=== PATIENT | female | born 1940 | race Caucasian/White ===

== ENCOUNTER → 2018-04-07 | Outpatient (CLI) | payer MEDICARE ==
--- NOTE | 2018-04-07 09:54 | CT ---
EXAMINATION TYPE: CT abdomen pelvis wo con DATE OF EXAM: 04/07/2018 COMPARISON: None HISTORY: Abdominal mass, frequent urination CT DLP: 737 mGycm Automated exposure control for dose reduction was used. TECHNIQUE: Helical acquisition of images from the lung bases through the pelvis. FINDINGS: Small posterior diaphragmatic hernias containing fat. There is a hiatal hernia. Lack of con trast could compromise sensitivity. LUNG BASES: No significant abnormality is appreciated. AORTA: No atheromatous changes are present. LIVER/GB: No significant abnormality is appreciated. PANCREAS: No significant abnormality is seen. SPLEEN: No significant abnormality is seen. ADRENALS: No significant abnormality is seen. KIDNEYS: No significant abnormality is seen. REPRODUCTIVE ORGANS: Not seen. URINARY BLADDER: No significant abnormality is seen. BOWEL: Colonic interposition present anterior to the liver. Colon is redundant, cecum courses toward s the midline, correlate for possible cecal bascule. Diverticular changes associated with the sigmoid colon FREE AIR: No Free Air is visible. ASCITES: None visible. PELVIC ADENOPATHY: None visualized. RETROPERITONEAL ADENOPATHY: No Retroperitoneal Adenopathy visible. OSSEOUS STRUCTURES: Posterior thoracic lumbar sacral fusion is noted, multiple transpedicular screws coursing anterior to the cortices of the fused vertebral bodies, in close proximity to the aortoilia c vasculature. There is a spinal curvature. Laminectomy present at L5, artifact from patient's hardwa re could obscure detail IMPRESSION: DIVERTICULOSIS, REDUNDANT CECUM DESCRIBED, CONSIDER CECAL BASCULE. NONCONTRAST EXAM, POSTOP CHANGE S AND ADDITIONAL FINDINGS ABOVE.
== END | disposition home or self-care (01) ==
LOC: RADCTMAIN 06:36
PROVIDERS: ATTEND Surgery Plastic and Reconstructive Surgery
DX: K57.90 Diverticulosis of intestine, part unspecified, without perforation or abscess without bleeding (principal); K63.89 Other specified diseases of intestine
CPT/HCPCS: 74176

== ENCOUNTER → 2018-06-29 | Day surgery (SDC) | payer MEDICARE ==
[2018-06-26 14:44] VITALS: BMI 25.7
[~2018-06-29] MED LIST: LACTATED RINGERS 1,000 ML IV SCH; LIDOCAINE 1% 20 ML VIAL (10MG/ML) FOR IV START INTRADERMA ONE; LIDOCAINE 1% 20 ML VIAL (10MG/ML) FOR IV START INTRADERMA PRN; LIDOCAINE 1% INJ 10MG/ML (20 ML MDV) ONE; PROPOFOL 10 MG/ML 20 ML VIAL IV ONE
--- NOTE | 2018-06-29 08:00 | P.GSHP ---
History of Present Illness H&P Date: 06/29/18 CHIEF COMPLAINT: GERD and colon screen HISTORY OF PRESENT ILLNESS: The patient is a 77-year-old female who presents with gastroesophageal reflux disease and need for colon screen. Upper and lower endoscopy were offered for further evaluation and management. PAST MEDICAL HISTORY: Please see list. PAST SURGICAL HISTORY: Please see list. MEDICATIONS: Please see list. ALLERGIES: Please see list. SOCIAL HISTORY: No illicit drug use FAMILY HISTORY: No reports of Crohn disease or ulcerative colitis. REVIEW OF ORGAN SYSTEMS: CONSTITUTIONAL: No reports of fevers or chills. GI: Denies any blood in stools or constipation. PHYSICAL EXAM: VITAL SIGNS: Stable GENERAL: Well-developed pleasant in no acute distress. HEENT: No scleral icterus. Extraocular movements grossly intact. Moist buccal mucosa. NECK: Supple without lymphadenopathy. CHEST: Unlabored respirations. Equal bilateral excursions. CARDIOVASCULAR: Regular rate and rhythm. Distal 2+ pulses. ABDOMEN: Soft, nondistended. MUSCULOSKELETAL: No clubbing, cyanosis, or edema. ASSESSMENT: 1. Gastroesophageal reflux disease 2. Colon screen. PLAN: 1. Recommend proceeding with an upper and lower endoscopy Past Medical History Past Medical History: Fibromyalgia, GERD/Reflux, Osteoarthritis (OA) Additional Past Medical History / Comment(s): low blood pressure, rectal bleeding, diarrhea/constipation, some urinary incontinence, MS dx in s, fx left foot 04/29/18- cast off recently History of Any Multi-Drug Resistant Organisms: None Reported Past Surgical History: Adenoidectomy, Back Surgery, Hysterectomy, Tonsillectomy Additional Past Surgical History / Comment(s): rods in back, Past Anesthesia/Blood Transfusion Reactions: Family History of Problems w/ Anesthesia Additional Past Anesthesia/Blood Transfusion Reaction / Comment(s): pt states can not lay flat due to rods in spine, daughter PONV, Smoking Status: Former smoker - Past Family History Mother Family Medical History: No Reported History Medications and Allergies Home Medications Medication Instructions Recorded Confirmed Type Aspirin [Adult Low Dose Aspirin EC] 81 mg PO DAILY 06/26/18 06/26/18 History Cyanocobalamin [Vitamin B-12] 500 mcg PO DAILY 06/26/18 06/26/18 History Escitalopram [Lexapro] 20 mg PO DAILY 06/26/18 06/26/18 History Ibuprofen [Advil] 200 mg PO DAILY 06/26/18 06/26/18 History Liver Antiox 1 tab PO DAILY 06/26/18 06/26/18 History [place] 3 1 tab PO DAILY 06/26/18 06/26/18 History Omeprazole 40 mg PO QAM 06/26/18 06/26/18 History Ubidecarenone [Co Q-10] 200 mg PO DAILY 06/26/18 06/26/18 History Vitamin K-2 1 tab PO DAILY 06/26/18 06/26/18 History Allergies Allergy/AdvReac Type Severity Reaction Status Date / Time No Known Allergies Allergy Verified 06/26/18 14:32
[2018-06-29 08:31] VITALS: RESP 16; TEMP 97.1
--- NOTE | 2018-06-29 09:25 | P.PCN ---
Date of Procedure: 06/29/18 Description of Procedure: PREOPERATIVE DIAGNOSIS: Colonoscopy screening. POSTOPERATIVE DIAGNOSIS: Colonoscopy screening. Severe sigmoid diverticulosis Colonic volvulus OPERATION: Colonoscopy aborted to sigmoidoscopy of the sigmoid colon. SURGEON: Edith Garcia MD. ANESTHESIA: MAC. INDICATIONS: The patient is a 77-year-old female who presents for colonoscopy screening. Her last colonoscopy was more than 10 years ago. Benefits and risks were described and informed consent was obtained. DESCRIPTION OF PROCEDURE: The patient had undergone Gatorade, MiraLAX and Dulcolax prep. She had been brought into the operating room and laid in the left lateral decubitus position. After adequate intravenous sedation, the rectum was examined with 2% lidocaine jelly. No external hemorrhoids were encountered. The rectal tone was loose. No lesions were palpated in the rectal vault. An Olympus colonoscope was advanced along the rectum to a very tortuous sigmoid colon. Despite multiple maneuvers, the sigmoid colon had severe tortuosity preventing further advancement of scope with high suspicion for colonic torsion/volvulus. The scope was passed to 30 cm from the anal verge. No evidence of polyps were identified. As the patient posed high risk for perforation with persistence of the procedure, the procedure was discontinued. The colon was desufflated. The patient had tolerated the procedure well. Withdrawal time was over 6 minutes. FINDINGS: Tortuous sigmoid colon with high suspicion of volvulus with preventing further advancement of the scope. No external prolapsed hemorrhoids. Scope advanced to sigmoid colon at 30 cm. No arteriovenous malformations. No adenomatous polyps. No focal colitis. RECOMMENDATIONS: Immediate evaluation with barium enema advised
--- NOTE | 2018-06-29 09:27 | P.PCN ---
Date of Procedure: 06/29/18 Description of Procedure: PREOPERATIVE DIAGNOSIS: Gastroesophageal reflux disease. POSTOPERATIVE DIAGNOSIS: Gastroesophageal reflux disease. Mild chronic gastritis Diaphragmatic hiatal hernia, paraesophageal type III OPERATION: Esophagogastroduodenoscopy with biopsies along antrum. SURGEON: Edith Garcia MD ANESTHESIA: MAC. INDICATIONS: The patient is a 77-year-old female who presents with a history of reflux disease. Benefits and risks of the procedure were described. Informed consent was obtained. DESCRIPTION: The patient was brought into the endoscopy suite and laid in the left lateral decubitus position. An Olympus gastroscope was passed along the posterior oropharynx down to the distal esophagus where the squamocolumnar junction was encountered at 32 cm from the incisors. The stomach was entered and no bile reflux was found. Additional findings are listed below. Biopsies with cold forceps were obtained of the antrum. The first through third portion of the duodenum was examined and unremarkable. Retroflexion of the scope confirmed Hill grade 4 lower esophageal valve. The squamocolumnar junction demonstrated LA grade A erosive esophagitis. The stomach was desufflated. The patient tolerated the procedure well. FINDINGS: Squamocolumnar junction 32 cm from the incisors. Diaphragmatic hiatus at 40 cm. Hiatal hernia, 8 cm, fixed paraesophageal type III Hill grade 4 lower esophageal valve. LA grade A erosive esophagitis. No active duodenitis. Chronic gastritis RECOMMENDATIONS: 1. Upper endoscopy as needed. 2. Recommend repair of large paraesophageal hiatal hernia Plan - Discharge Summary Discharge Rx Participant: No New Discharge Prescriptions: No Action Cyanocobalamin [Vitamin B-12] 500 mcg PO DAILY Aspirin [Adult Low Dose Aspirin EC] 81 mg PO DAILY Omeprazole 40 mg PO QAM Escitalopram [Lexapro] 20 mg PO DAILY Vitamin K-2 1 tab PO DAILY Liver Antiox 1 tab PO DAILY Ibuprofen [Advil] 200 mg PO DAILY Ubidecarenone [Co Q-10] 200 mg PO DAILY [place] 3 1 tab PO DAILY Discharge Medication List Aspirin [Adult Low Dose Aspirin EC] 81 mg PO DAILY 06/26/18 [History] Cyanocobalamin [Vitamin B-12] 500 mcg PO DAILY 06/26/18 [History] Escitalopram [Lexapro] 20 mg PO DAILY 06/26/18 [History] Ibuprofen [Advil] 200 mg PO DAILY 06/26/18 [History] Liver Antiox 1 tab PO DAILY 06/26/18 [History] [place] 3 1 tab PO DAILY 06/26/18 [History] Omeprazole 40 mg PO QAM 06/26/18 [History] Ubidecarenone [Co Q-10] 200 mg PO DAILY 06/26/18 [History] Vitamin K-2 1 tab PO DAILY 06/26/18 [History] Follow up Appointment(s)/Referral(s): Edith Garcia MD [STAFF PHYSICIAN] - 07/11/18 Patient Instructions/Handouts: Hiatal Hernia (DC), Diverticulosis (ED), Diverticulosis Diet (GEN) Discharge Disposition: HOME SELF-CARE
[2018-06-29 10:39] VITALS: BP 127/73; PULSE 69
--- NOTE | 2018-06-29 13:52 | FL ---
EXAMINATION TYPE: FL barium enema DATE OF EXAM: 06/29/2018 COMPARISON: Correlation CT 04/07/2018 HISTORY: 77-year-old female sigmoid volvulus, dark stool for 2 days, diarrhea, bloating. 40 pound david ght gain. Incomplete colonoscopy. TECHNIQUE: A double contrast barium enema study is performed. FINDINGS: Online Content Developer view of the abdomen shows overall non-obstructive bowel gas pattern. There is residual colonic air from patient's incomplete colonoscopy. Extensive thoracolumbar fusion hardware is present. The hadley rdware overlapping the colon causes some limitation in assessment. Additional limitation due to marked redundancy of the sigmoid colon as well as the right side of the colon. As noted on CT, the cecum is high riding, possible cecal bascule. The marked sigmoid redundancy causes excessive overlap limiting assessment. There is moderate to dereje re sigmoid diverticulosis demonstrated. There is a short segment at the junction of the descending and sigmoid colon that shows mild persiste nt annular narrowing initially but seems to adequately distend on the overhead images. No evidence of any mass or polyp, obstructing or persistently constricting lesion throughout the colo n. The appendix is not seen. The terminal ileum is not refluxed. Only faint coating of cecum was achieved due to the extensive redundancy. IMPRESSION: 1. Exam limitations due to overlying spinal hardware and marked redundancy of the right side of the c olon and sigmoid colon. 2. Moderate to severe sigmoid diverticulosis. Some relative mild narrowing at the junction of the jane cending and sigmoid colon could represent a mild stricture such as from chronic diverticulitis. This area does partially distended on the overhead images arguing against an annular mass. 3. No definite suspicious colonic lesion seen.
== END | disposition home or self-care (01) ==
LOC: ORWHC2ENDO 07:56
PROVIDERS: ATTEND Surgery Plastic and Reconstructive Surgery
DX: K21.0 Gastro-esophageal reflux disease with esophagitis (principal); K29.50 Unspecified chronic gastritis without bleeding; K31.9 Disease of stomach and duodenum, unspecified; K44.9 Diaphragmatic hernia without obstruction or gangrene; K56.2 Volvulus; K57.30 Diverticulosis of large intestine without perforation or abscess without bleeding; M19.90 Unspecified osteoarthritis, unspecified site; M79.7 Fibromyalgia; Z12.11 Encounter for screening for malignant neoplasm of colon; Z79.82 Long term (current) use of aspirin; Z87.891 Personal history of nicotine dependence
CPT/HCPCS: 88305; 74270; 43239; 45330; J2001; J2704

== ENCOUNTER → 2018-08-09 | Outpatient (CLI) | payer MEDICARE ==
[2018-08-09 10:16] LABS: HCT 39.8 % (34.0-46.0); HGB 12.5 gm/dL (11.4-16.0); MCH 29.7 pg (25.0-35.0); MCHC 31.5 g/dL (31.0-37.0); MCV 94.1 fL (80.0-100.0); Mean Platelet Volume 8.1; Platelet Count 254 k/uL (150-450); RBC 4.23 m/uL (3.80-5.40); RDW 13.1 % (11.5-15.5)
[2018-08-09 10:27] LABS: Albumin 4.7 g/dL (3.5-5.0); Calcium 9.8 mg/dL (8.4-10.2); Potassium 4.8 mmol/L (3.5-5.1); Total Bilirubin 0.5 mg/dL (0.2-1.3); Total Protein 7.8 g/dL (6.3-8.2)
== END ==
LOC: LABPAT 08:52
PROVIDERS: ATTEND Surgery Plastic and Reconstructive Surgery
DX: Z01.812 Encounter for preprocedural laboratory examination (principal); K57.90 Diverticulosis of intestine, part unspecified, without perforation or abscess without bleeding
CPT/HCPCS: 36415; 80053; 85027

== ENCOUNTER 2018-08-16 07:45 | Inpatient (IN) | payer MEDICARE ==
[2018-09-14 13:17] VITALS: BMI 28.9
--- NOTE | 2018-09-21 14:17 | P.PN ---
Progress Note - Text Progress Note Date: 09/21/18 I personally contacted patient. She reports no problem with her bowel prep. She understands that incomplete bowel prep would require re-schedule of her surgery including increased risks for complications. All questions reviewed and answered
--- NOTE | 2018-09-21 21:42 | P.GSHP ---
History of Present Illness H&P Date: 09/22/18 CHIEF COMPLAINT: History of sigmoid diverticulitis HISTORY OF PRESENT ILLNESS: The patient is a 77-year-old female with long- standing history of chronic constipation including large bowel obstruction secondary to sigmoid volvulus and diverticulitis. She completed an incomplete colonoscopy leading to a barium enema with questionable lesion involving the sigmoid/descending colon junction. Now she presents for colon resection. PAST MEDICAL HISTORY: Please see list. PAST SURGICAL HISTORY: Please see list. MEDICATIONS: Please see list. ALLERGIES: Please see list. SOCIAL HISTORY: No illicit drug use FAMILY HISTORY: No reports of Crohn disease or ulcerative colitis. REVIEW OF ORGAN SYSTEMS: CONSTITUTIONAL: Denies any fever or chills. HEENT: Denies any trouble with vision or nosebleeds. No difficulty swallowing. She is hard of hearing. LYMPHATIC: The patient denies any lumps and bumps around the neck. ENDOCRINE: Has thyroid disorders. No blood sugar glucose intolerance. RESPIRATORY: Denies pneumonia. Denies any troubles with breathing or dyspnea on exertion. CARDIOVASCULAR: Denies any chest pain, palpitations, or recent heart attacks. GASTROINTESTINAL: Has constipation and recent colonoscopy GENITOURINARY: Has increased urinary frequency. MUSCULOSKELETAL: Has back pain, stiffness, joint arthritis. NEUROLOGIC: Denies any numbness or tingling along the distal extremities. No seizure disorders or headaches. PSYCHIATRIC: Denies depression or suidical ideation. HEMATOLOGIC: Denies any abnormal bleeding or bruising. PHYSICAL EXAM: VITAL SIGNS: Stable GENERAL: Well-developed pleasant in no acute distress. HEENT: No scleral icterus. Extraocular movements grossly intact. Moist buccal mucosa. He is hard of hearing. NECK: Supple without lymphadenopathy. CHEST: Unlabored respirations. Equal bilateral excursions. CARDIOVASCULAR: Regular rate and rhythm. Distal 2+ pulses. ABDOMEN: Soft, nontender, nondistended. MUSCULOSKELETAL: No clubbing, cyanosis, or edema. NERUO: Regular 2-12 grossly intact. PSYCH: Alert and oriented to person place and time. ASSESSMENT: 1. History of previous large bowel obstruction. 2. Sigmoid volvulus. 3. Diverticulitis 4. Hypertensive heart disease PLAN: 1. Benefits and risks of surgical intervention for colon resection was reviewed in detail. Robotic-assisted approach was also described. 2. She has completed an enhanced colon recovery program. 3. DVT prophylaxis. 4. Antibiotic prophylaxis. Past Medical History Past Medical History: GERD/Reflux, Neurologic Disorder Additional Past Medical History / Comment(s): diverculosis, MS in remission, recovering from fx left foot-walks slowly History of Any Multi-Drug Resistant Organisms: None Reported Past Surgical History: Adenoidectomy, Appendectomy, Back Surgery, Tonsillectomy Additional Past Surgical History / Comment(s): [employer] breast implants, rods in back can not lay flat, Past Anesthesia/Blood Transfusion Reactions: No Reported Reaction Additional Past Anesthesia/Blood Transfusion Reaction / Comment(s): can not lay flat due to ashwini in back Smoking Status: Former smoker - Past Family History Father Additional Family Medical History / Comment(s): carotid artery disease Mother Family Medical History: Cancer Additional Family Medical History / Comment(s): lung Medications and Allergies Home Medications Medication Instructions Recorded Confirmed Type Cyanocobalamin [Vitamin B-12] 500 mcg PO DAILY 06/26/18 09/14/18 History Liver Antiox 1 tab PO DAILY 06/26/18 09/14/18 History [place] 3 1 tab PO DAILY 06/26/18 09/14/18 History Ubidecarenone [Co Q-10] 200 mg PO DAILY 06/26/18 09/14/18 History Vitamin K-2 1 tab PO DAILY 06/26/18 09/14/18 History Cholestol [place] 1 tab PO DAILY 08/07/18 09/14/18 History Diazepam [Valium] 5 mg PO DAILY PRN 08/07/18 09/14/18 History Omeprazole [PriLOSEC] 40 mg PO QAM 08/07/18 09/14/18 History Vitamin C/Biotin [Hair, Skin and 1 tab PO DAILY 08/07/18 09/14/18 History Nails] buPROPion HCL [Wellbutrin SR] 150 mg PO QAM 08/07/18 09/14/18 History Allergies Allergy/AdvReac Type Severity Reaction Status Date / Time cephalexin [From Keflex] Allergy Itching Verified 09/14/18 13:12
[2018-09-22] MEDS ORDERED: HEPARIN SODIUM,PORCINE 5,000 UNIT/ML 1 ML VIAL SQ ONE (05:00)
[2018-09-22] MEDS ORDERED: GENTAMICIN 300 MG in SODIUM CHLORIDE 0.9% 100 ML IVPB ONE (05:00)
[2018-09-22] MEDS ORDERED: CLINDAMYCIN 900 MG in DEXTROSE 5% IN WATER 50 ML IVPB ONE ×2 (05:00)
[2018-09-22] MEDS ORDERED: Antibiotics per Pharmacy 1 EACH MISC MISCELLANE PRN (05:59)
[2018-09-22] MEDS ORDERED: ACETAMINOPHEN TAB 500 MG TAB PO ONE (05:59)
[2018-09-22] MEDS ORDERED: metroNIDAZOLE-NS PMX 500 MG in SALINE 1 100ML.BAG IVPB STA (06:00)
[2018-09-22] MEDS ORDERED: ceFAZolin IN SWFI 2 GM/20 ML SYRINGE IVP STA (06:00)
[2018-09-22] MEDS ORDERED: LIDOCAINE 1% 20 ML VIAL (10MG/ML) FOR IV START INTRADERMA PRN (06:20)
[2018-09-22] MEDS ORDERED: ONDANSETRON 4 MG/2 ML VIAL IVP ONE (06:20)
[2018-09-22] MEDS ORDERED: SCOPOLAMINE 1.5MG/72HR PATCH TRANSDERM ONE (06:20)
[2018-09-22] MEDS ORDERED: DEXAMETHASONE SOD PHOSPHATE 10 MG/ML 1 ML VIAL IV ONE (06:20)
[2018-09-22] MEDS ORDERED: ALVIMOPAN 12 MG CAPSULE PO ONE (07:00)
[2018-09-22] MEDS: LACTATED RINGERS 1,000 ML IV SCH (10:02)
[2018-09-22 10:15] LABS: Basophils % (A) 0 %; Calcium 9.9 mg/dL (8.4-10.2); Eosinophils # (A) 0.1 k/uL (0-0.7); Eosinophils % (A) 2 %; HCT 37.8 % (34.0-46.0); HGB 12.4 gm/dL (11.4-16.0); Lymphocytes # (A) 1.2 k/uL (1.0-4.8); Lymphocytes % (A) 17 %; MCV 91.1 fL (80.0-100.0); Mean Platelet Volume 8.4; Monocytes # (A) 0.4 k/uL (0-1.0); Monocytes % (A) 5 %; Neutrophils # (A) 5.5 k/uL (1.3-7.7); Neutrophils % (A) 75 %; Platelet Count 242 k/uL (150-450); Potassium 4.1 mmol/L (3.5-5.1); RBC 4.15 m/uL (3.80-5.40); RDW 13.4 % (11.5-15.5); Total Bilirubin 0.7 mg/dL (0.2-1.3); Total Protein 8.1 g/dL (6.3-8.2); WBC 7.3 k/uL (3.8-10.6)
--- NOTE | 2018-09-22 10:17 | P.ONQ ---
Anesthesiology Proc Note - PNB - Peripheral Nerve Block Performed Bilateral Transversus Abdominis Single Time Out Performed: Yes Indication: Acute Post-Operative Pain, Analgesia, Dx/Pain Location Sedation Type: Sedate with meaningful contact maintained Preparation: Sterile Prep Position: Supine Catheter: None Needle Types: On-Q Needle Size: 100mm (4") Needle Gauge: 21 Technique: Ultrasound Injectate: Other (see comment) (0.5% bupivacaine with 1:100k epi. 30cc each side) Blood Aspirated: No Pain Paresthesia on Injection Noted: No Resistance on Injection: Normal Events: Uneventful and Well Tolerated
[2018-09-22] MEDS ORDERED: GLYCOPYRROLATE 0.2 MG/ML 2 ML VIAL ONE (10:36)
[2018-09-22] MEDS ORDERED: PROPOFOL 10 MG/ML 20 ML VIAL IV ONE (10:36)
[2018-09-22] MEDS ORDERED: SUCCINYLCHOLINE CHLORIDE 100 MG/5 ML SYR IV ONE (10:36)
[2018-09-22] MEDS ORDERED: ROCURONIUM BROMIDE 10 MG/ML 10 ML VIAL IV ONE (10:36)
[2018-09-22] MEDS ORDERED: KETOROLAC 30 MG/ML 1 ML VIAL ONE (10:36)
[2018-09-22] MEDS ORDERED: BUPIVACAINE-EPI 0.5%-1:200,000 10 ML VIAL ONE (10:36)
[2018-09-22] MEDS ORDERED: LIDOCAINE 1% INJ 10MG/ML (20 ML MDV) ONE (10:36)
[2018-09-22] MEDS ORDERED: ePHEDrine SULFATE/0.9% NACL/PF 50 MG/5 ML SYRINGE IV ONE (10:36)
[2018-09-22] MEDS ORDERED: fentaNYL (PF) 50 MCG/ML 2 ML AMP ONE (10:36)
[2018-09-22] MEDS ORDERED: MIDAZOLAM 2 MG/2 ML VIAL ONE (10:36)
[2018-09-22] MEDS ORDERED: NEOSTIGMINE 1 MG/ML 10 ML VIAL ONE (10:36)
[2018-09-22] MEDS ORDERED: BUPIVACAIN-EPI 0.25%-1:200,000 30 ML VIAL SQ ONE (11:14)
[2018-09-22] MEDS ORDERED: ceFAZolin 1,000 MG VIAL IV ONE (11:45)
[2018-09-22] MEDS ORDERED: LACTATED RINGERS 1,000 ML IV ONE (12:17)
[2018-09-22] MEDS ORDERED: ONDANSETRON 4 MG/2 ML VIAL IVP PRN (16:26)
[2018-09-22] MEDS: HYDROmorphone 1 MG/ML 1 ML SYRINGE IVP ONE ×2 (16:27→16:32)
--- NOTE | 2018-09-22 17:03 | P.OP ---
Date of Procedure: 09/22/18 Description of Procedure: Date of Procedure: 09/22/18 SURGEON: SOMMER KAISER MD PREOPERATIVE DIAGNOSES: 1. Sigmoid diverticulitis 2. Left lower quadrant abdominal pain 3. Gastroesophageal reflux disease 4. Right lower quadrant abdominal pain 5. Anxiety disorder 6. Depressive disorder 7. History of multiple sclerosis 8. History of sigmoid volvulus POSTOPERATIVE DIAGNOSES: 1. Sigmoid diverticulitis 2. Left lower quadrant abdominal pain 3. Gastroesophageal reflux disease 4. Right lower quadrant abdominal pain 5. Anxiety disorder 6. Depressive disorder 7. History of multiple sclerosis 8. History of sigmoid volvulus 9. Peritoneal adhesions OPERATION: 1. Robotic-assisted daVinci Xi laparoscopic sigmoid colectomy, multi-port 2. Robotic-assisted daVinci Xi laparoscopic mobilization of splenic flexure 3. Robotic-assisted daVinci Xi laparoscopic lysis of adhesions ANESTHESIA: General with local and regional ESTIMATED BLOOD LOSS: 50 mL SPECIMENS REMOVED: sigmoid colon Condition: stable Disposition: floor FINDINGS: 1. Localized diverticulitis of the left lower quadrant area resected. 2. Linear isoperistaltic colo-colo anastomosis performed using 60 mm green loads 3. Oversewn anastomosis 4. Extensive lysis of adhesions for peritoneal adhesions 5. Mobilization splenic flexure using double dock technique INDICATIONS: The patient is a 77-year-old female who presents with history of sigmoid diverticulitis and sigmoid volvulus. She had an attempted colonoscopy including barium enema confirming sigmoid stricture and redundant sigmoid colon with risk for sigmoid volvulus. Surgical options were described including robotic assisted technique. Benefits and risks, including infection, possibility for additional surgery, including possible colostomy was discussed at length. Informed consent was obtained. DESCRIPTION: Earlier the patient had undergone a bowel prep using the enhanced colon recovery program and placement of epidural . The patient was transferred to the operating room and placed supine. The patient was then intubated. A Sierra catheter placed. The abdomen was then prepped and draped in standard sterile fashion. After a timeout protocol was performed, attention was then brought to the left upper quadrant whereby a 0 degree 5 mm laparoscopic trocar entry was performed. The abdominal cavity was entered and insufflated to 15 mmHg pressure, which she tolerated well. Diagnostic laparoscopy demonstrated inflammatory reaction of the left lower quadrant after sigmoid colon with scarring. The sigmoid colon was moderately redundant. All 4 arms of the robot were used. Next a robotic 8-mm trocar was placed along the left lateral abdominal wall 15 cm proximal from the pelvis. Another robotic 8-mm port placed along the epigastrium. Ports were placed 8 cm apart from each other including 15 cm away from the target anatomy of the left pelvis including upper abdomen. The 5-mm port was exchanged for a 12 mm robotic port. The stapler 12-mm port was placed along the right upper quadrant. The patient was then placed in Trendelenburg position, 16. The robotic da Migue Xi system was primed. The robot was docked along the right-side of the patient. Using a grasper for arm 1, a grasper for arm 3, including vessel sealer for arm 4, the robotic system was docked and primed as described. Instruments were interchanged by the magistrate assistant including hook cautery, needle class c driver, robotic stapler and vessel sealer. Next, attention was brought to identify the rectum. A stay suture using 0 silk was placed along the anterior serosa of the descending colon including along the rectum. The area of sigmoid diverticulitis was identified. The sigmoid mesentery was mobilized using a vessel sealer whereby the distal sigmoid colon was marked and tagged. Adhesions were i dentified along the pelvis with extensive lysis of adhesions over 1 hour using vessel sealer. Using robot stapler 60 mm green load, the distal redundant sigmoid colon was divided. The mesentery of the sigmoid colon was mobilized towards the descending colon using a vessel sealer. To provide adequate length of the colon to the pelvis, mobilization of the splenic flexure was performed using a vessel sealer from a medial to lateral approach after docking the robot in the upper abdomen. The robot was then re-docked for the pelvis. Next, the proximal sigmoid colon was divided using robotic stapler 60 mm blue load. The descending colon was similarly marked using 3-0 silk. The rest of the sigmoid colon mesentery was mobilized using vessel sealer. The proximal and distal colon was brought in an isoperistaltic fashion after placing interrupted sutures along the proposed reji-lumen using 3-0 silk. Along the tinea coli of the proximal including distal limbs, a colotomy was prepared along both limbs. Next, a 60 mm blue stapler was fired to create the reji-lumen. The colotomy of the reji-lumen was closed using 3-0 Vicryl and 3-0 silk and 60 mm green loads. The robot was undocked. I re-scrubbed into the case. Via the 12 mm port of the left upper abdomen, the colon was removed after widening the incision. All sponges were removed from the abdominal cavity. Minimal contamination had occurred throughout the case. To close the fascia, 0 Vicryl and Dhaval Joyce was used to close the incision. Next all pneumoperitoneum was evacuated from the abdominal cavity. The 8-mm trocar sites were reapproximated using 4-0 Monocryl in an interrupted subcuticular fashion. The larger trocar sites were irrigated using warm normal saline and hydrogen peroxide solution of the colon extraction site. Local anesthetic was infiltrated to all wounds for postop analgesia. An Optifoam surgical dressing was placed over the colon extraction site. Liquid glue was applied to the rest of the skin incisions. The patient had tolerated the procedure well. The patient was extubated successfully. Intraoperative photos were reviewed with the patient's family who were overall pleased with the level of care. The patient was transferred to the postanesthesia care unit in stable condition.
[2018-09-22] MEDS ORDERED: METOCLOPRAMIDE 5 MG/ML 2 ML VIAL IVP SCH (18:00)
[2018-09-22] MEDS: KETOROLAC 30 MG/ML 1 ML VIAL IVP SCH ×2 (18:17→23:05)
[2018-09-22] MEDS: metroNIDAZOLE-NS PMX 500 MG in SALINE 1 100ML.BAG IVPB SCH ×2 (18:18→23:04)
[2018-09-22] MEDS ORDERED: SODIUM CHLORIDE 0.9% 1,000 ML IV ONE (20:11)
[2018-09-22] MEDS ORDERED: TAMSULOSIN 0.4 MG CAP.ER.24H PO STA (20:12)
[2018-09-22] MEDS: ALVIMOPAN 12 MG CAPSULE PO SCH (20:35)
[2018-09-22] MEDS: ceFAZolin IN SWFI 2 GM/20 ML SYRINGE IVP SCH ×2 (20:35→23:04)
[2018-09-22] MEDS: D5-0.45% NACL WITH KCL 20MEQ/L 1,000 ML IV SCH (21:47)
[2018-09-23] MEDS: HEPARIN SODIUM,PORCINE 5,000 UNIT/ML 1 ML VIAL SQ SCH ×4 (00:13→23:10)
[2018-09-23] MEDS: D5-0.45% NACL WITH KCL 20MEQ/L 1,000 ML IV SCH ×3 (04:18→18:00)
[2018-09-23] MEDS: metroNIDAZOLE-NS PMX 500 MG in SALINE 1 100ML.BAG IVPB SCH ×4 (05:03→23:09)
[2018-09-23] MEDS: KETOROLAC 30 MG/ML 1 ML VIAL IVP SCH ×4 (05:03→23:10)
[2018-09-23] MEDS: LACTATED RINGERS 1,000 ML IV SCH (07:15)
[2018-09-23 08:38] LABS: African American GFR (CKD) >90 (>60 ml/min/1.73 sqM); Anion Gap 8 mmol/L; Blood Urea Nitrogen 14 mg/dL (7-17); Calcium 9.1 mg/dL (8.4-10.2); Carbon Dioxide 19 mmol/L (22-30); Chloride 116 mmol/L (98-107); Glucose 100 mg/dL (74-99); Potassium 4.1 mmol/L (3.5-5.1); Sodium 143 mmol/L (137-145)
[2018-09-23] MEDS: buPROPion SR 150 MG TABLET.ER PO SCH (08:52)
[2018-09-23] MEDS: ALVIMOPAN 12 MG CAPSULE PO SCH ×2 (08:52→20:30)
[2018-09-23] MEDS: TAMSULOSIN 0.4 MG CAP.ER.24H PO SCH (08:52)
[2018-09-23 08:53] LABS: Basophils % (A) 0 %; Eosinophils # (A) 0.1 k/uL (0-0.7); Eosinophils % (A) 1 %; HGB 10.7 gm/dL (11.4-16.0); Lymphocytes # (A) 1.8 k/uL (1.0-4.8); Lymphocytes % (A) 18 %; MCH 30.1 pg (25.0-35.0); MCHC 33.5 g/dL (31.0-37.0); MCV 89.6 fL (80.0-100.0); Mean Platelet Volume 9.9; Monocytes # (A) 0.8 k/uL (0-1.0); Monocytes % (A) 8 %; Neutrophils # (A) 7.3 k/uL (1.3-7.7); Neutrophils % (A) 72 %; Platelet Count 189 k/uL (150-450); RBC 3.57 m/uL (3.80-5.40); RDW 14.5 % (11.5-15.5); WBC 10.1 k/uL (3.8-10.6)
[2018-09-23] MEDS: ceFAZolin IN SWFI 2 GM/20 ML SYRINGE IVP SCH ×3 (11:07→23:10)
--- NOTE | 2018-09-23 12:15 | P.PN ---
Subjective Progress Note Date: 09/23/18 CHIEF COMPLAINT: Diverticulitis HISTORY OF PRESENT ILLNESS: The patient is a 77-year-old female postop day 1 status post robotic sigmoid colectomy, 09/22/2018. Her main concern includes prior history of multiple sclerosis with bilateral lower extremity weakness. She has history of recent foot surgery within the last 3 months and still in physical therapy. She has ambulated with physical therapy. "I think I overdid it.". She is belching. No flatus from the rectum. She reports small yellow bowel movement from the rectum. ROS: No reports of nausea and vomiting. No bowel movements. No fevers or chills. No new chest pain. PHYSICAL EXAM: VITAL SIGNS: Reviewed CONSTITUTIONAL: Well developed and in no acute distress. EYES: Conjuctivae without sclera icterus. Extraocular movements grossly intact. HEAD, EARS, NOSE, THROAT: Moist buccal mucosa. Head is atraumatic, normocephalic. Hears conversational speech. No nasal drainage. NECK: Supple. No thyroidomegaly. RESPIRATORY: Non-labored respirations and equal bilateral excursions. CARDIOVASCULAR: Palpable 2+ radial pulses. Regular rate. Regular rhythm. ABDOMEN: Incisions clean dry and intact. Soft. No peritonitis. Mild incisional pain, expected. MUSCULOSKELETAL: No gross deformity of the lower extremities noted. No clubbing. No cyanosis. SKIN: Good skin turgor. Well perfused. NEUROLOGIC: Cranial nerves I through XII grossly intact. No focal or lateralizing signs. PSYCH: Appropriate affect. Alert and oriented to person, place and time. CLINCAL LABS: White blood cell count normal ASSESSMENT: 1. Sigmoid diverticulitis status post colectomy PLAN: 1. She is currently on scheduled Toradol. Dilaudid added. 2. Will need home healthcare needs an evaluation as she lives by herself. 3. Medicine consultation for [facility]. 4. With her pre-existing comorbidities and debility, continued hospitalization Objective - Vital Signs Vital signs: Vital Signs Temp 98.7 F 09/23/18 07:00 Pulse 97 09/23/18 07:00 Resp 12 09/23/18 07:00 BP 118/57 09/23/18 07:00 Pulse Ox 95 09/23/18 07:00 Intake & Output 09/22/18 09/23/18 09/23/18 18:59 06:59 18:59 Intake Total 1955 100 Output Total 280 300 Balance 1676 -300 100 Intake: IV 1955 Oral 100 Output: Urine 230 300 Estimated Blood Loss 50 Other: # Voids 3 1 - Labs CBC & Chem 7: 09/23/18 07:37 09/23/18 07:37 Labs: Abnormal Lab Results - Last 24 Hours (Table) 09/23/18 09/23/18 Range/Units 07:37 07:37 RBC 3.57 L (3.80-5.40) m/uL Hgb 10.7 L (11.4-16.0) gm/dL Hct 32.0 L (34.0-46.0) % Chloride 116 H (98-107) mmol/L Carbon Dioxide 19 L (22-30) mmol/L Glucose 100 H (74-99) mg/dL Assessment and Plan (1) Diverticulitis of sigmoid colon Current Visit: Yes Status: Acute Code(s): K57.32 - DVTRCLI OF LG INT W/O PERFORATION OR ABSCESS W/O BLEEDING SNOMED Code(s): 189693981 (2) Multiple sclerosis Current Visit: Yes Status: Acute Code(s): G35 - MULTIPLE SCLEROSIS SNOMED Code(s): 35087433 (3) High risk for readmission Current Visit: Yes Status: Acute Code(s): Z91.89 - OTH PERSONAL RISK FACTORS, NOT ELSEWHERE CLASSIFIED SNOMED Code(s): 454291107 (4) Gastroesophageal reflux Current Visit: Yes Status: Acute Code(s): K21.9 - GASTRO-ESOPHAGEAL REFLUX DISEASE WITHOUT ESOPHAGITIS SNOMED Code(s): 452737303 (5) S/P foot surgery, left Current Visit: Yes Status: Acute Code(s): Z98.890 - OTHER SPECIFIED POSTPROCEDURAL STATES SNOMED Code(s): 023264839
[2018-09-23] MEDS: HYDROmorphone 1 MG/ML 1 ML SYRINGE IVP PRN (22:03)
[2018-09-24] MEDS: HYDROmorphone 1 MG/ML 1 ML SYRINGE IVP PRN ×5 (03:12→22:33)
[2018-09-24] MEDS: D5-0.45% NACL WITH KCL 20MEQ/L 1,000 ML IV SCH ×2 (03:12→08:23)
[2018-09-24] MEDS: metroNIDAZOLE 500 MG TAB PO SCH ×3 (05:20→17:40)
[2018-09-24] MEDS: KETOROLAC 30 MG/ML 1 ML VIAL IVP SCH ×3 (05:20→17:40)
[2018-09-24] MEDS: ALVIMOPAN 12 MG CAPSULE PO SCH ×2 (08:22→21:11)
[2018-09-24] MEDS: HEPARIN SODIUM,PORCINE 5,000 UNIT/ML 1 ML VIAL SQ SCH ×2 (08:23→15:29)
[2018-09-24] MEDS: ceFAZolin IN SWFI 2 GM/20 ML SYRINGE IVP SCH ×2 (08:23→15:29)
[2018-09-24] MEDS: buPROPion SR 150 MG TABLET.ER PO SCH (08:23)
[2018-09-24] MEDS: TAMSULOSIN 0.4 MG CAP.ER.24H PO SCH (08:23)
[2018-09-24 09:24] LABS: African American GFR (CKD) >90 (>60 ml/min/1.73 sqM); Anion Gap 8 mmol/L; Blood Urea Nitrogen 6 mg/dL (7-17); Calcium 8.6 mg/dL (8.4-10.2); Carbon Dioxide 22 mmol/L (22-30); Chloride 112 mmol/L (98-107); Glucose 122 mg/dL (74-99); Sodium 142 mmol/L (137-145)
[2018-09-24 09:32] LABS: Basophils # (A) 0.1 k/uL (0-0.2); Basophils % (A) 1 %; Eosinophils # (A) 0.3 k/uL (0-0.7); Eosinophils % (A) 4 %; Lymphocytes # (A) 1.7 k/uL (1.0-4.8); Lymphocytes % (A) 23 %; MCH 30.7 pg (25.0-35.0); MCHC 33.3 g/dL (31.0-37.0); MCV 92.2 fL (80.0-100.0); Monocytes # (A) 0.4 k/uL (0-1.0); Monocytes % (A) 5 %; Neutrophils % (A) 66 %; Platelet Count 188 k/uL (150-450); RBC 3.26 m/uL (3.80-5.40); RDW 14.4 % (11.5-15.5); WBC 7.5 k/uL (3.8-10.6)
--- NOTE | 2018-09-24 14:07 | P.PN ---
Subjective Progress Note Date: 09/24/18 CHIEF COMPLAINT: Diverticulitis HISTORY OF PRESENT ILLNESS: The patient is a 77-year-old female postop day 2 status post robotic sigmoid colectomy, 09/22/2018. She has been ambulating with assistance. She reports passing new flatus today. Yesterday she had a small bowel movement via the rectum. She reports discomfort from abdominal binder. She has been tolerating liquids. She is concerned about leg weakness which is persistent to surgery. ROS: No reports of nausea and vomiting. No fevers or chills. No new chest pain. PHYSICAL EXAM: VITAL SIGNS: Reviewed CONSTITUTIONAL: Well developed and in no acute distress. EYES: Conjuctivae without sclera icterus. Extraocular movements grossly intact. HEAD, EARS, NOSE, THROAT: Moist buccal mucosa. Head is atraumatic, normocephalic. Hears conversational speech. No nasal drainage. NECK: Supple. No thyroidomegaly. RESPIRATORY: Non-labored respirations and equal bilateral excursions. CARDIOVASCULAR: Palpable 2+ radial pulses. Regular rate. Regular rhythm. ABDOMEN: Minimal serosanguineous drainage along dressing. No infection. In creased abdominal distention today compared to yesterday. MUSCULOSKELETAL: No gross deformity of the lower extremities noted. No clubbing. No cyanosis. SKIN: Good skin turgor. Well perfused. NEUROLOGIC: Cranial nerves I through XII grossly intact. No focal or lateralizing signs. PSYCH: Appropriate affect. Alert and oriented to person, place and time. CLINCAL LABS: White blood cell count normal. Sodium, potassium within normal limits. ASSESSMENT: 1. Sigmoid diverticulitis status post colectomy 2. Diverticulitis 3. Prior history of multiple sclerosis with leg weakness. PLAN: 1. Although she is passing some flatus and had a small bowel movement yesterday, she has increased abdominal distention today. I have adjusted her diet down to allow for increased passage of flatus. 2. Simethicone chews scheduled advised to help with abdominal distention. 3. Currently, she is pending home healthcare as she is at risk for readmission with living by herself and pre-existing weakness from leg fracture 6 months ago, April 2018 Objective - Vital Signs Vital signs: Vital Signs Temp 97.9 F 09/24/18 07:00 Pulse 81 09/24/18 07:00 Resp 12 09/24/18 07:00 BP 135/71 09/24/18 07:00 Pulse Ox 97 09/24/18 07:00 Intake & Output 09/23/18 09/24/18 09/24/18 18:59 06:59 18:59 Intake Total 300 775 Output Total 250 600 500 Balance 50 175 -500 Intake: Intake, IV Titration 775 Amount D5-0.45% NaCl with KCl 675 20Meq/l 1,000 ml @ 75 mls /hr IV .[id number] [facility] Rx#: [id number] metroNIDAZOLE-NS PMX 500 100 mg In Saline 1 100ml.bag @ 100 mls/hr IVPB Q6HR [facility] Rx#:[id number] Oral 300 Output: Urine 250 600 500 Other: Voiding Method Toilet # Voids 5 - Labs CBC & Chem 7: 09/24/18 08:02 09/24/18 08:02 Labs: Abnormal Lab Results - Last 24 Hours (Table) 09/24/18 09/24/18 Range/Units 08:02 08:02 RBC 3.26 L (3.80-5.40) m/uL Hgb 10.0 L (11.4-16.0) gm/dL Hct 30.0 L (34.0-46.0) % Chloride 112 H (98-107) mmol/L BUN 6 L (7-17) mg/dL Glucose 122 H (74-99) mg/dL Assessment and Plan (1) Diverticulitis of sigmoid colon Current Visit: Yes Status: Acute Code(s): K57.32 - DVTRCLI OF LG INT W/O PERFORATION OR ABSCESS W/O BLEEDING SNOMED Code(s): 452407273 (2) Multiple sclerosis Current Visit: Yes Status: Acute Code(s): G35 - MULTIPLE SCLEROSIS SNOMED Code(s): 82640243 (3) High risk for readmission Current Visit: Yes Status: Acute Code(s): Z91.89 - OTH PERSONAL RISK FACTORS, NOT ELSEWHERE CLASSIFIED SNOMED Code(s): 040111885 (4) Gastroesophageal reflux Current Visit: Yes Status: Acute Code(s): K21.9 - GASTRO-ESOPHAGEAL REFLUX DISEASE WITHOUT ESOPHAGITIS SNOMED Code(s): 692995217 (5) S/P foot surgery, left Current Visit: Yes Status: Acute Code(s): Z98.890 - OTHER SPECIFIED POSTPROCEDURAL STATES SNOMED Code(s): 150024075
[2018-09-24] MEDS: SIMETHICONE 80 MG CHEWABLE PO SCH ×3 (15:27→21:11)
[2018-09-24] MEDS: HYDROcodone/APAP 5-325MG 1 EACH TAB PO PRN (21:11)
--- NOTE | 2018-09-24 22:41 | CONS ---
CONSULTATION DATE OF CONSULTATION: September 24, 2018. REASON FOR CONSULTATION: Medical management requested by Dr. Garcia. CONSULTATION: This is a very pleasant 77-year-old patient who has presented with lower abdominal pain. The patient did undergo sigmoid colectomy by Dr. Garcia. Some pain is present. No nausea, vomiting. Patient did tolerate clear liquids earlier today. Patient also passed some flatus. Patient has been out of bed. The patient's daughter is present. The patient's chronic stable medical conditions include GERD, multiple sclerosis, anxiety, depression. The patient did sit up on a chair. REVIEW OF SYSTEMS: CONSTITUTIONAL: None. HEENT: None. RESPIRATORY none. CARDIOVASCULAR: None. GASTROINTESTINAL as above. GENITOURINARY none. MUSCULOSKELETAL: The patient does get some pain in the left leg. DERMATOLOGICAL, HEMATOLOGIC, LYMPHATIC: none. PSYCHIATRY none. NEUROLOGICAL: None. PAST MEDICAL HISTORY: GERD, multiple sclerosis, diverticulosis. PAST SURGICAL HISTORY: Adenoidectomy, appendectomy, back surgery, tonsillectomy, bilateral breast implants noted in the back. PSYCH HISTORY: Anxiety, depression. SOCIAL HISTORY: The patient stopped smoking in . Drinks 1 or 2 glasses of wine per night. Lives by herself. 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 FAMILY HISTORY: Of carotid artery disease. HOME MEDICATIONS: 1. Wellbutrin SR 150 mg a day. 2. Vitamin K 1 tablet p.o. daily. 3. Hair, skin, nails 1 tablet p.o. daily. 4. CO Q10 200 mg p.o. daily. 5. Prilosec 40 mg p.o. daily. 6. Valium 5 mg daily p.r.n. 7. Vitamin B12 500 mcg p.o. daily. 8. Cholesterol care 1 tablet p.o. daily. ALLERGIES: TO KEFLEX. PHYSICAL EXAMINATION: VITAL SIGNS: Temperature 97.9, pulse 81, respirations 12, blood pressure 130/71, pulse ox 97% on room air. GENERAL APPEARANCE: Average build, lying in bed, not in distress. EYES: Pupils equal. Conjunctivae normal. HEENT: External appearance of nose and ears normal. Oral cavity normal. NECK: JVD not raised. Mass not palpable. RESPIRATORY: Effort normal. LUNGS: Fair air entry. CARDIOVASCULAR: First and second sounds normal. No edema. ABDOMEN: Binder in place. Some tenderness. No guarding or rigidity. Liver and spleen not palpable. Bowel sounds sluggish. LYMPHATICS: No lymph nodes palpable in the neck and axilla. PSYCHIATRY: Alert and oriented x3. Mood and affect normal. NEUROLOGICAL: Pupils equal. Cranial nerves grossly intact. Power and sensation grossly intact. INVESTIGATIONS: White count 7.5, hemoglobin 10, preop it was 12.4. Potassium 4.0. BUN 6. Creatinine 0.69. ASSESSMENT: 1. Sigmoid colectomy. 2. Acute postoperative blood loss anemia expected from surgery. 3. Gastroesophageal reflux disease. 4. Chronic multiple sclerosis, stable. 5. Anxiety and depression not otherwise specified. PLAN: The patient is on clear liquids. Diet to be advanced per Surgery. Other home medications are resumed. The patient's subcu heparin for DVT prophylaxis. Encourage the patient to be out of bed the bed. The patient's care will be resumed by [facility] tomorrow. Thank you Dr. Garcia. MMHANSL / DIMASN: [id number] /
--- NOTE | 2018-09-24 23:56 | P.CONS ---
History of Present Illness - Reason for Consult Consult date: 09/24/18 (Dr. Oviedo notified me of consult @ 09/24) medical management post op Requesting physician: Edith Garcia - Chief Complaint post op medical management - History of Present Illness 77 year old female with history of MS, last flare up around 2009 , not on maintenance therapy Surgery team placed a consult for medical management postop [facility] were not notified until today by Dr. Oviedo who already saw the patient today, however, he notified me again @ 2133 asking me to see the patient today and transferring the care to our service. Patient is here for scheduled robotic sigmoid colectomy due to history of diverticulitis, she is seen in postoperative day 2, patient or the past gases and small bowel movement yesterday. She is tolerating by mouth intake. She denies any fevers or chills denies any chest pain or trouble breathing. Patient reports no problems with urination. Abdominal pain is well controlled and tolerated. Patient is concerned that she might be having a flareup of MS as she's feeling weak in her legs. However the same time she reports that typical flareup of MS is usually associated with speech problems and sensory changes in her lower extremities which both she is not experiencing at this time. She as that probab ly he is feeling weak in her legs due to the belly pain and the surgery. Labs were reviewed patient has expected postoperative anemia Review of Systems Pertinent positives as noted in HPI. All other systems were reviewed and are negative Past Medical History Past Medical History: GERD/Reflux, Neurologic Disorder Additional Past Medical History / Comment(s): diverculosis, MS in remission, recovering from fx left foot-walks slowly History of Any Multi-Drug Resistant Organisms: None Reported Past Surgical History: Adenoidectomy, Appendectomy, Back Surgery, Tonsillectomy Additional Past Surgical History / Comment(s): [facility] breast implants, rods in back can not lay flat, Past Anesthesia/Blood Transfusion Reactions: No Reported Reaction Additional Past Anesthesia/Blood Transfusion Reaction / Comm: can not lay flat due to ashwini in back Past Psychological History: Anxiety, Depression Smoking Status: Former smoker Past Alcohol Use History: Daily Additional Past Alcohol Use History / Comment(s): Quit smoking in the s. Drinks 1-2 glasses of wine per night. Past Drug Use History: None Reported - Past Family History Father Additional Family Medical History / Comment(s): carotid artery disease Mother Family Medical History: Cancer Additional Family Medical History / Comment(s): lung Medications and Allergies Home Medications Medication Instructions Recorded Confirmed Type Cyanocobalamin [Vitamin B-12] 500 mcg PO DAILY 06/26/18 09/22/18 History Liver Antiox 1 tab PO DAILY 06/26/18 09/22/18 History [place] 3 1 tab PO DAILY 06/26/18 09/22/18 History Ubidecarenone [Co Q-10] 200 mg PO DAILY 06/26/18 09/22/18 History Vitamin K-2 1 tab PO DAILY 06/26/18 09/22/18 History Cholestol Care 1 tab PO DAILY 08/07/18 09/22/18 History Diazepam [Valium] 5 mg PO DAILY PRN 08/07/18 09/22/18 History Omeprazole [PriLOSEC] 40 mg PO QAM 08/07/18 09/22/18 History Vitamin C/Biotin [Hair, Skin and 1 tab PO DAILY 08/07/18 09/22/18 History Nails] buPROPion HCL [Wellbutrin SR] 150 mg PO QAM 08/07/18 09/22/18 History Allergies Allergy/AdvReac Type Severity Reaction Status Date / Time cephalexin [From Keflex] Allergy Itching Verified 09/22/18 18:19 Physical Exam Vitals: Vital Signs Temp Pulse Resp BP Pulse Ox 09/24/18 20:08 98.1 F 89 18 134/59 93 L 09/24/18 15:00 98.2 F 87 12 130/71 97 09/24/18 07:00 97.9 F 81 12 135/71 97 09/24/18 00:20 98.4 F 87 15 121/65 94 L Intake and Output 09/24/18 09/24/18 09/24/18 06:59 14:59 22:59 Intake Total 775 200 Output Total 200 2100 775 Balance 575 -2100 -575 Intake: Intake, IV Titration 775 Amount D5-0.45% NaCl with KCl 675 20Meq/l 1,000 ml @ 75 mls /hr IV .[id number] [facility] Rx#: [id number] metroNIDAZOLE-NS PMX 500 100 mg In Saline 1 100ml.bag @ 100 mls/hr IVPB Q6HR [facility] Rx#:[id number] Oral 200 Output: Urine 200 2100 775 Other: Voiding Method Toilet # Voids 1 Constitutional: No acute distress, conversant, pleasant Eyes: Anicteric sclerae, moist conjunctiva, no lid-lag Pupils equal round reactive to light ENMT: NC/AT Oropharynx clear, no erythema, exudates Neck: Supple, FROM, no masses, or JVD No carotid bruits No thyromegaly Lungs: Clear to auscultation Clear to percussion Normal respiratory effort, no accessory muscle use Cardiovascular: Heart regular in rate and rhythm, No murmurs, gallops, or rubs No peripheral edema Abdominal: Soft, mildly distended, tenderness around surgical site, no g uarding, rebound or rigidity, surgical dressing looks dry and intact Abdomen moving with respiration Normoactive bowel sounds No hepatomegaly, No splenomegaly No palpable mass No abdominal wall hernia noted Skin: Normal temperature, tone, texture, turgor No induration No subcutaneous nodules No rash, lesions No ulcers Extremities: No digital cyanosis No clubbing Pedal pulses intact and symmetrical Radial pulses intact and symmetrical No calf tenderness Psychiatric: Alert and oriented to person, place and time Appropriate affect fair judgment Neuro patient declined lower extremity exam at this time as she is comfortable in bed and she didn't want to be repositioned to do the neuro exam of lower extremities. Otherwise muscle strength is 5 out of 5 in the upper extremities Sensation to light touch grossly present throughout Cranial nerves II-XII grossly intact No focal sensory deficits Lymphatics: no palpable cervical or supraclavicular , or inguinal lymph nodes Results CBC & Chem 7: 09/24/18 08:02 09/24/18 08:02 Labs: Abnormal Lab Results - Last 24 Hours (Table) 09/24/18 09/24/18 Range/Units 08:02 08:02 RBC 3.26 L (3.80-5.40) m/uL Hgb 10.0 L (11.4-16.0) gm/dL Hct 30.0 L (34.0-46.0) % Chloride 112 H (98-107) mmol/L BUN 6 L (7-17) mg/dL Glucose 122 H (74-99) mg/dL Assessment and Plan Assessment: 77-year-old female with history of MS in remission. Had scheduled robotic sigmoid colectomy due to diverticulitis tolerated procedure well patient is seen today postoperative day 2 for postoperative medical management. Plan: Postoperative anemia as expected currently asymptomatic Iron supplement twice a day Continue to monitor outpatient Status post robotic sigmoid colectomy postoperative day 2 Management per general surgery DVT prophylaxis heparin subcu History of MS in remission Patient has concern regarding lower extremity weakness postop, however she declined neuro exam at this time as she was getting ready to sleep and didn't want to be disturbed during the exam of her lower extremities for repositioning might exacerbate her pain. However patient also adds normally her flareups consist of weakness in her lower extremity changes in sensation and slurred speech which the later 2 components s he is not experiencing Consider neurology evaluation and patient versus outpatient PT/OT Thank you for allowing us to participate in the care of this patient. Do not hesitate to contact us with questions. Someone can be reached from the [facility] hospitalist group at all hours of the day at [phone].
[2018-09-25] MEDS: HEPARIN SODIUM,PORCINE 5,000 UNIT/ML 1 ML VIAL SQ SCH ×3 (01:05→15:25)
[2018-09-25] MEDS: KETOROLAC 30 MG/ML 1 ML VIAL IVP SCH ×3 (01:05→11:29)
[2018-09-25] MEDS: metroNIDAZOLE 500 MG TAB PO SCH ×3 (01:05→11:29)
[2018-09-25] MEDS: ceFAZolin IN SWFI 2 GM/20 ML SYRINGE IVP SCH ×3 (01:05→15:25)
[2018-09-25] MEDS: HYDROmorphone 1 MG/ML 1 ML SYRINGE IVP PRN (03:50)
[2018-09-25] MEDS ORDERED: FERROUS SULFATE 325 MG TAB PO SCH (07:30)
[2018-09-25 07:45] LABS: Basophils % (A) 1 %; Eosinophils # (A) 0.4 k/uL (0-0.7); Eosinophils % (A) 6 %; HCT 31.7 % (34.0-46.0); HGB 10.6 gm/dL (11.4-16.0); Lymphocytes # (A) 1.4 k/uL (1.0-4.8); Lymphocytes % (A) 22 %; MCH 30.4 pg (25.0-35.0); MCHC 33.4 g/dL (31.0-37.0); MCV 90.9 fL (80.0-100.0); Mean Platelet Volume 8.8; Monocytes # (A) 0.4 k/uL (0-1.0); Monocytes % (A) 7 %; Neutrophils # (A) 4.1 k/uL (1.3-7.7); Neutrophils % (A) 63 %; Platelet Count 196 k/uL (150-450); RBC 3.49 m/uL (3.80-5.40); RDW 14.3 % (11.5-15.5); WBC 6.5 k/uL (3.8-10.6)
[2018-09-25] MEDS: TAMSULOSIN 0.4 MG CAP.ER.24H PO SCH (08:18)
[2018-09-25] MEDS: ALVIMOPAN 12 MG CAPSULE PO SCH (08:18)
[2018-09-25] MEDS: SIMETHICONE 80 MG CHEWABLE PO SCH ×2 (08:18→14:44)
[2018-09-25] MEDS: buPROPion SR 150 MG TABLET.ER PO SCH (08:18)
[2018-09-25] MEDS: HYDROcodone/APAP 5-325MG 1 EACH TAB PO PRN ×3 (08:18→17:23)
--- NOTE | 2018-09-25 11:12 | P.PN ---
Subjective Progress Note Date: 09/25/18 CHIEF COMPLAINT: Diverticulitis HISTORY OF PRESENT ILLNESS: 77-year-old female who underwent robotic sigmoid colectomy on 09/22/2018. Patient examined this morning. She is sitting up in the chair. She states her abdominal pain has improved and has decreased bloating. She is passing flatus. She reports loose BM this morning. Denies nausea or vomiting. She reports increased pain and weakness of her lower extremities and is concerned about her MS. Also, yesterday the patient states she was given a pill that had been broken in half and when she tilted the medicine cup back to get the medication she believes part of the pill got into her eye. She reports pain to her left eye and feels like it is irritated. PHYSICAL EXAM: VITAL SIGNS: Reviewed. GENERAL: Well-developed in no acute distress. HEENT: Eye examination performed with no obvious foreign body visualized. No redness noted. No sclera icterus. Extraocular movements grossly intact. Moist buccal mucosa. Head is atraumatic, normocephalic. ABDOMEN: Soft. Nondistended. Nontender. NEUROLOGIC: Alert and oriented. Cranial nerves II through XII grossly intact. ASSESSMENT: 1. Sigmoid diverticulitis status post colectomy 2. Diverticulitis 3. Prior history of multiple sclerosis with leg weakness PLAN: 1. Advance diet to clear liquid diet 2. Pain control 3. Activity as tolerated 4. Incentive spirometry 5. Consult to Dr. Vicente for possible foreign body in patients left eye. Recommend eye wash. Nursing notified. 6. Recommend neurology consult. However, facility as no neurology coverage this week. Patient advised to follow up with her PCP 1-2 days post discharge. Patient agreeable to plan. Nurse practitioner note has been reviewed by physician. Signing provider agrees with the documented findings, assessment, and plan of care. Objective - Vital Signs Vital signs: Vital Signs Temp 98.1 F 09/25/18 09:48 Pulse 96 09/25/18 09:48 Resp 20 09/25/18 09:48 BP 144/75 09/25/18 09:48 Pulse Ox 96 09/25/18 09:48 Intake & Output 09/24/18 09/25/18 09/25/18 18:59 06:59 18:59 Intake Total 200 Output Total 2600 275 Balance -2400 -275 Intake: Oral 200 Output: Urine 2600 275 Other: Voiding Method Toilet # Voids 3 - Labs CBC & Chem 7: 09/25/18 06:53 09/24/18 08:02 Labs: Abnormal Lab Results - Last 24 Hours (Table) 09/25/18 Range/Units 06:53 RBC 3.49 L (3.80-5.40) m/uL Hgb 10.6 L (11.4-16.0) gm/dL Hct 31.7 L (34.0-46.0) % Assessment and Plan (1) Diverticulitis of sigmoid colon Current Visit: Yes Status: Acute Code(s): K57.32 - DVTRCLI OF LG INT W/O PERFORATION OR ABSCESS W/O BLEEDING SNOMED Code(s): 626783274 (2) Gastroesophageal reflux Current Visit: Yes Status: Acute Code(s): K21.9 - GASTRO-ESOPHAGEAL REFLUX DISEASE WITHOUT ESOPHAGITIS SNOMED Code(s): 934751707 (3) High risk for readmission Current Visit: Yes Status: Acute Code(s): Z91.89 - OTH PERSONAL RISK FACTORS, NOT ELSEWHERE CLASSIFIED SNOMED Code(s): 990472457 (4) Multiple sclerosis Current Visit: Yes Status: Acute Code(s): G35 - MULTIPLE SCLEROSIS SNOMED Code(s): 16932610 (5) S/P foot surgery, left Current Visit: Yes Status: Acute Code(s): Z98.890 - OTHER SPECIFIED POSTPROCEDURAL STATES SNOMED Code(s): 132696371
[2018-09-25 15:57] VITALS: BP 131/75; PULSE 86; RESP 16; TEMP 97.9
--- NOTE | 2018-09-25 16:35 | P.PN ---
Subjective Progress Note Date: 09/25/18 Patient seen and examined at bedside, but complains of lower extremity weakness bilaterally, reports that her usual exacerbations of MS can sit to blurry vision and dizziness with the lower extremity weakness, patient has been up and ambulatory with her walker, also reports she is unable to ambulate when she has her MS flares. Otherwise patient is doing well in clinic diet advanced denies any nausea or vomiting. No acute events overnight Objective - Vital Signs Vital signs: Vital Signs Temp 97.9 F 09/25/18 13:23 Pulse 86 09/25/18 13:23 Resp 16 09/25/18 13:23 BP 131/75 09/25/18 13:23 Pulse Ox 96 09/25/18 13:23 Intake & Output 09/24/18 09/25/18 09/25/18 18:59 06:59 18:59 Intake Total 200 200 Output Total 2600 275 Balance -2400 -275 200 Intake: Oral 200 200 Output: Urine 2600 275 Other: Voiding Method Toilet # Voids 3 3 - Exam Constitutional: No acute distress, conversant, pleasant Eyes: Anicteric sclerae, moist conjunctiva, no lid-lag, PERRLA ENMT: NC/AT,Oropharynx clear, no erythema, exudates Neck:Supple, FROM, no masses, or JVD, No carotid bruits; No thyromegaly Lungs: Clear to auscultation, Clear to percussion, Normal respiratory effort, no accessory muscle use Cardiovascular: Heart regular in rate and rhythm, No murmurs, gallops, or rubs no peripheral edema Abdominal: Soft Nontender, nom distended, no guarding, no rebound or rigidity, Normoactive bowel sounds No hepatomegaly, No splenomegaly, No palpable mass No abdominal wall hernia noted Skin: Normal temperature, tone, texture, turgor, No induration No subcutaneous nodules, No rash, lesions, No ulcers Extremities:No digital cyanosis No clubbing, Pedal pulses intact and symmetrical Radial pulses intact, No calf tenderness Psychiatric: Alert and oriented to person, place and time, Appropriate affect Intact judgement Neuro: M Cranial nerves II-XII grossly intact. No focal sensory deficits - Labs CBC & Chem 7: 09/25/18 06:53 09/24/18 08:02 Labs: Abnormal Lab Results - Last 24 Hours (Table) 09/25/18 Range/Units 06:53 RBC 3.49 L (3.80-5.40) m/uL Hgb 10.6 L (11.4-16.0) gm/dL Hct 31.7 L (34.0-46.0) % Assessment and Plan (1) Diverticulitis of sigmoid colon Narrative/Plan: * patient being seen by general surgery consider advancing to clear liquid diet today * Patient continued in cefazolin and Flagyl * History of colectomy * Defer to surgery medications Current Visit: Yes Status: Acute Code(s): K57.32 - DVTRCLI OF LG INT W/O PERFORATION OR ABSCESS W/O BLEEDING SNOMED Code(s): 064925190 (2) Gastroesophageal reflux Narrative/Plan: * We'll plan to resume patient's PPI therapy Current Visit: Yes Status: Acute Code(s): K21.9 - GASTRO-ESOPHAGEAL REFLUX DISEASE WITHOUT ESOPHAGITIS SNOMED Code(s): 161348216 (3) Multiple sclerosis Narrative/Plan: * Likely stable patient without syndrome of symptoms that constitute her typical exacerbation * Continuous physical therapy for lower extremity weakness * Patient will follow up with her PCP on discharge Current Visit: Yes Status: Acute Code(s): G35 - MULTIPLE SCLEROSIS SNOMED Code(s): 99900951 (4) S/P foot surgery, left Current Visit: Yes Status: Acute Code(s): Z98.890 - OTHER SPECIFIED POSTPROCEDURAL STATES SNOMED Code(s): 389217866 Plan: Disposition * Patient doing well from a GI standpoint * She is up and ambulatory with her walker despite her lower extremity weakness, continue to work with physical therapy * Anticipated discharge 1-2 days
--- NOTE | 2018-09-25 21:02 | P.DS ---
Providers Date of admission: 09/22/18 09:01 Expected date of discharge: 09/25/18 Attending physician: Edith Garcia Consults: 09/23/18 22:19 Consult Physician Routine Consulting Provider: Thelma Matt Consult Reason/Comments: Medical management Do you want consulting provider notified?: Already Contacted 09/25/18 10:10 Consult Physician Routine Consulting Provider: Eleni Vicente Consult Reason/Comments: possible foreign body in eye Do you want consulting provider notified?: Yes Primary care physician: Edgardo Roblero MD - Discharge Diagnosis(es) (1) Diverticulitis of sigmoid colon Status: Acute (2) Multiple sclerosis Status: Acute (3) High risk for readmission Status: Acute (4) Gastroesophageal reflux Status: Acute (5) S/P foot surgery, left Status: Acute (6) Sigmoid volvulus Status: Acute (7) Hypertensive heart disease Status: Acute Hospital Course: POSTOPERATIVE DIAGNOSES: 1. Sigmoid diverticulitis 2. Left lower quadrant abdominal pain 3. Gastroesophageal reflux disease 4. Right lower quadrant abdominal pain 5. Anxiety disorder 6. Depressive disorder 7. History of multiple sclerosis 8. History of sigmoid volvulus 9. Peritoneal adhesions COURSE: The patient is a 77-year-old female who presented with history of sigmoid diverticulitis and sigmoid volvulus. She underwent a sigmoid colectomy including extensive lysis of adhesions and mobilization of splenic flexure. Postprocedure she was passing flatus and tolerating diet. She did report some recurrent staining weakness along the left leg where medicine consultation for evaluation of recurrent multiple sclerosis was performed. Her recovery was challenged by prior foot surgery in the last 6 months and continued physical therapy. She had some itching of the eye after powdered pill may have went into her eye. The eye was flushed. Additonal consultants including neurology and ophthalmology were made. Prior to discharge, she was tolerating diet. She was passing flatus. She had physical therapy evaluation. Her pain was controlled. Home health care was also arranged. Her hemoglobin did decrease secondary to dilution effect from IV fluid hydration and was monitored. There was no evidence of bleed. She had 1 course of oral iron per medicine team aas a protective measure. Procedures: OPERATION: 1. Robotic-assisted daVinci Xi laparoscopic sigmoid colectomy, multi-port 2. Robotic-assisted daVinci Xi laparoscopic mobilization of splenic flexure 3. Robotic-assisted daVinci Xi laparoscopic lysis of adhesions Patient Condition at Discharge: Stable Plan - Discharge Summary Discharge Rx Participant: Yes New Discharge Prescriptions: New Bisacodyl [Dulcolax] 5 mg PO DAILY PRN #10 tablet. PRN Reason: Constipation Simethicone 40 mg/0.6 ml Drops [Mylicon Drops] 40 mg PO PCHS PRN #30 ml PRN Reason: Gas Ondansetron Odt [Zofran Odt] 4 mg PO Q8HR PRN #9 tab PRN Reason: Nausea HYDROcodone/APAP 5-325MG [Alba 5-325] 1 tab PO Q4HR PRN 3 Days #18 tab PRN Reason: Pain Continue Cyanocobalamin [Vitamin B-12] 500 mcg PO DAILY buPROPion HCL [Wellbutrin SR] 150 mg PO QAM Omeprazole [PriLOSEC] 40 mg PO QAM Vitamin C/Biotin [Hair, Skin and Nails] 1 tab PO DAILY Discontinued Vitamin K-2 1 tab PO DAILY Liver Antiox 1 tab PO DAILY Ubidecarenone [Co Q-10] 200 mg PO DAILY [place] 3 1 tab PO DAILY Diazepam [Valium] 5 mg PO DAILY PRN PRN Reason: Anxiety Cholestol Care 1 tab PO DAILY Discharge Medication List Cyanocobalamin [Vitamin B-12] 500 mcg PO DAILY 06/26/18 [History] Omeprazole [PriLOSEC] 40 mg PO QAM 08/07/18 [History] Vitamin C/Biotin [Hair, Skin and Nails] 1 tab PO DAILY 08/07/18 [History] buPROPion HCL [Wellbutrin SR] 150 mg PO QAM 08/07/18 [History] Bisacodyl [Dulcolax] 5 mg PO DAILY PRN #10 tablet. 09/25/18 [Rx] HYDROcodone/APAP 5-325MG [[place]ba 5-325] 1 tab PO Q4HR PRN 3 Days #18 tab 09/25/18 [Rx] Ondansetron Odt [Zofran Odt] 4 mg PO Q8HR PRN #9 tab 09/25/18 [Rx] Simethicone 40 mg/0.6 ml Drops [Mylicon Drops] 40 mg PO PCHS PRN #30 ml 09/25/18 [Rx] Follow up Appointment(s)/Referral(s): [facility] [NON-STAFF] - As Needed (zara) dEith Garcia MD [STAFF PHYSICIAN] - 10/03/18 9:00 am [facility], [NON-STAFF] - 1-2 Days (home care will call you to set up appointment if you do not hear from them, please call agency. ) Patient Instructions/Handouts: Colectomy (DC), Laparoscopic Bowel Resection (IP), Colectomy Diet (DC) Activity/Diet/Wound Care/Special Instructions: Take gas pills for occasional abdominal swelling. No lifting over 10 pounds for 2 weeks to October 06. August shower. No bathtub soaks until October 06 Discharge Disposition: HOME WITH HOME HEALTH SERVICES
[2018-09-26] MEDS ORDERED: PANTOPRAZOLE 40 MG TABLET PO SCH (07:30)
--- NOTE | 2018-09-27 11:12 | CDI ---
Documentation Clarification Form Date: 09/27/18 From: Stephania Mayen Phone: If you have a question regarding this query, please contact Nakia Wolfe at [phone] between 8am and 5pm. Admit Date: 09/22/2018 9:01:00 AM Patient Name: Stella Garrett Visit Number: [id number] Discharge Date: 09/25/2018 5:30:00 PM ATTENTION: The Clinical Documentation Specialists (CDI) and [facility] Coding Staff appreciate your assistance in clarifying documentation. Please respond to the clarification below the line at the bottom and electronically sign. The CDI & [facility] Coding staff will review the response and follow-up if needed. Please note: Queries are made part of the Legal Health Record. If you have any questions, please contact the author of this message via ITS. Dr. Edith Garcia A diagnosis of expected postoperative anemia documented in the consult note lacks specificity to accurately reflect your patients severity of condition and clarification is needed. History/Risk Factors: Sigmoid diverticulitis with laparscopic sigmoid colectomy. Clinical indicators: Decreased Hgb/Hct Hemoglobin: 10.0 Hematocrit:30.0 Treatment: Monitored Hgb/Hct, PO Feosol In order to capture the severity of condition, please clarify the type of anemia and etiology if known: Acute blood loss anemia Acute on chronic blood loss anemia Chronic blood loss anemia Iron deficiency anemia Unable to determine Other, please specify Her hemoglobin decreased secondary to dilution effect from IV fluid hydration and was monitored. There was no evidence of bleed. I DO NOT AGREE WITH CONSULTANTS ASSESSMENT. She had 1 course of oral iron per medicine team as a protective measure. NONE OF THE ABOVE APPLIES. 10/02/18 @ 2141 MTDD
== END 2018-09-25 17:30 | disposition home health service (06) | DRG 329 ==
LOC: 2ORMAIN 09-22 09:01 → 4SSUR 09-22 16:33
PROVIDERS: ADMIT Surgery Plastic and Reconstructive Surgery; ATTEND Surgery Plastic and Reconstructive Surgery
PROC: 0DNW4ZZ Release Peritoneum, Percutaneous Endoscopic Approach (ICD-10-PCS; 2018-09-22)
PROC: 8E0W4CZ Robotic Assisted Procedure of Trunk Region, Percutaneous Endoscopic Approach (ICD-10-PCS; 2018-09-22)
PROC: 0DTN4ZZ Resection of Sigmoid Colon, Percutaneous Endoscopic Approach (ICD-10-PCS; principal; 2018-09-22 11:15)
DX: K57.32 Diverticulitis of large intestine without perforation or abscess without bleeding (principal); K56.2 Volvulus; G35 Multiple sclerosis; I08.1 Rheumatic disorders of both mitral and tricuspid valves; I11.9 Hypertensive heart disease without heart failure; F32.9 Major depressive disorder, single episode, unspecified; K66.0 Peritoneal adhesions (postprocedural) (postinfection); F41.9 Anxiety disorder, unspecified; K21.9 Gastro-esophageal reflux disease without esophagitis; K44.9 Diaphragmatic hernia without obstruction or gangrene; Z79.899 Other long term (current) drug therapy; Z87.891 Personal history of nicotine dependence; Z98.82 Breast implant status; Z98.1 Arthrodesis status; Z90.49 Acquired absence of other specified parts of digestive tract; Z88.1 Allergy status to other antibiotic agents; Z80.1 Family history of malignant neoplasm of trachea, bronchus and lung
CPT/HCPCS: 64488; 80048; 80053; 85025; 86850; 86900; 86901; 88307

== ENCOUNTER → 2018-08-25 | Outpatient (CLI) | payer MEDICARE | LOC: LABWHC1 10:56 | PROVIDERS: ATTEND Surgery | DX: Z53.9 Procedure and treatment not carried out, unspecified reason (principal) ==

== ENCOUNTER → 2018-09-15 | Outpatient (CLI) | payer MEDICARE ==
[2018-09-15 13:27] LABS: HCT 38.3 % (34.0-46.0); HGB 12.6 gm/dL (11.4-16.0); MCH 30.4 pg (25.0-35.0); MCHC 32.9 g/dL (31.0-37.0); MCV 92.4 fL (80.0-100.0); Mean Platelet Volume 8.6; Platelet Count 247 k/uL (150-450); RBC 4.14 m/uL (3.80-5.40); RDW 13.8 % (11.5-15.5); WBC 8.4 k/uL (3.8-10.6)
[2018-09-15 13:29] LABS: Albumin 4.8 g/dL (3.5-5.0); Calcium 9.7 mg/dL (8.4-10.2); Potassium 4.5 mmol/L (3.5-5.1); Total Bilirubin 0.6 mg/dL (0.2-1.3); Total Protein 7.8 g/dL (6.3-8.2)
== END | disposition home or self-care (01) ==
LOC: LABPAT 12:54
PROVIDERS: ATTEND Surgery Plastic and Reconstructive Surgery
DX: Z01.812 Encounter for preprocedural laboratory examination (principal); K57.30 Diverticulosis of large intestine without perforation or abscess without bleeding
CPT/HCPCS: 80053; 85027; 86850; 86900; 86901

== ENCOUNTER → 2018-10-10 | Outpatient (CLI) | payer MEDICARE ==
--- NOTE | 2018-10-10 11:11 | CT ---
EXAMINATION TYPE: CT abdomen and pelvis wo con DATE OF EXAM: 10/10/2018 HISTORY: Left lower quadrant pain CT DLP: 1295 mGycm. Automated Exposure Control for Dose Reduction was Utilized. TECHNIQUE: CT scan of the abdomen and pelvis are performed without oral or IV contrast. COMPARISON: NONE FINDINGS: Within the limitations of a non-contrast study, the following observations are made. Exam ordered of the abdomen but essentially entire pelvis wasn't included by technologist LUNG BASES: There is partial visualization of rim calcified bilateral subpectoral implants with some infolding. LIVER/GB: Gallbladder has distended margins without surrounding inflammatory change. PANCREAS: No significant abnormality is seen. SPLEEN: No significant abnormality is seen. ADRENALS: No significant abnormality is seen. KIDNEYS: Some cortical thinning both kidneys. No renal stones or hydronephrosis. BOWEL: There is focal prominence at site of sutures left pelvis where there are some colonic diverticula. Side to side anastomosis felt present. No suspicious proximal dilatation. Small degree of adjacent fluid extending posteriorly is noted. No significant inflammatory change otherwise identified. GENITAL ORGANS: Uterus is surgically absent LYMPH NODES: No greater than 1cm abdominal or pelvic lymph nodes are appreciated. OSSEOUS STRUCTURES: Extensive surgical change throughout the spine from T12 through S1 level is redemonstrated with slight residual levoconvex scoliotic curvature. Moderate axial joint space loss both hips. OTHER: In the anterior abdominal wall of the left mid abdomen above the umbilicus axial image 73 for reference there is irregular fat stranding. Differential includes new surgical scar versus focal cellulitis or soft tissue infection. This is new from prior study. Adjacent mild skin thickening is seen. Mild to moderate calcified plaque of the aorta. IMPRESSION: 1. Interval partial colectomy sigmoid colon with reanastomosis. Focal prominence at this level without obstruction. Residual diverticula. Nonspecific fluid extends posterior and inferior to this could be per postsurgical. Suspect surgical scar versus focal cellulitis left mid abdomen anterior abdominal wall. MTDD
== END | disposition home or self-care (01) ==
LOC: RADCTMAIN 10:28
PROVIDERS: ATTEND Surgery Plastic and Reconstructive Surgery
DX: K57.90 Diverticulosis of intestine, part unspecified, without perforation or abscess without bleeding (principal); Z90.49 Acquired absence of other specified parts of digestive tract; Z88.1 Allergy status to other antibiotic agents
CPT/HCPCS: 74176

== ENCOUNTER → 2018-12-05 | Outpatient (CLI) | payer MEDICARE ==
[2018-12-05 09:46] LABS: HCT 37.9 % (34.0-46.0); HGB 12.4 gm/dL (11.4-16.0); MCH 30.7 pg (25.0-35.0); MCHC 32.7 g/dL (31.0-37.0); MCV 93.8 fL (80.0-100.0); Mean Platelet Volume 8.6; Platelet Count 249 k/uL (150-450); RBC 4.04 m/uL (3.80-5.40); RDW 13.6 % (11.5-15.5); WBC 6.5 k/uL (3.8-10.6)
[2018-12-05 10:02] LABS: INR 0.9 (<1.2); Partial Thromboplastin Time 23.8 sec (22.0-30.0); Prothrombin Time 9.5 sec (9.0-12.0)
[2018-12-05 16:22] LABS: Iron Saturation 16.47 (12.00-45.00)
[2018-12-05 16:24] LABS: Albumin 4.5 g/dL (3.80-4.90); Albumin/Globulin Ratio 2.05 (1.60-3.17); Anion Gap 8.1 mmol/L (4.00-12.00); BUN/Creat Ratio 28.75 Ratio (12.00-20.00); Calcium 9.2 mg/dL (8.7-10.3); Carbon Dioxide 25.9 mmol/L (21.6-31.8); Chol/HDL Ratio 3.33; Globulin 2.2 g/dL (1.6-3.3); LDL Cholesterol,Calculated 143.4 mg/dL (0.0-131.0); Magnesium 1.9 mg/dL (1.5-2.4); Non-African American GFR(CKD) 71.6 (60.0-200.0); Phosphorus 3.7 mg/dL (2.4-5.1); Potassium 4.4 mmol/L (3.5-5.5); Total Bilirubin 0.4 mg/dL (0.3-1.2); Total Protein 6.7 g/dL (6.2-8.2); VLDL Calculation 31.6 mg/dL (5.00-40.00)
[2018-12-05 16:32] LABS: Ferritin 56.6 ng/mL (10.0-291.0)
[2018-12-05 16:41] LABS: Folate, Serum 17.4 ng/mL
[2018-12-05 18:05] LABS: Hemoglobin A1C 5.7 % (4.0-6.0)
[2018-12-06 14:09] LABS: Zinc, Serum 86 ug/dL (60-130)
[2018-12-07 08:05] LABS: Vitamin A 82 ug/dL (38-106)
[2018-12-09 18:25] LABS: Selenium 131 mcg/L (63-160)
[2018-12-21 05:41] LABS: Vit B1(Thiamine) 100 ug/L (38-122)
== END | disposition home or self-care (01) ==
LOC: LABWHC1 08:58
PROVIDERS: ATTEND Surgery Plastic and Reconstructive Surgery
DX: E66.1 Drug-induced obesity (principal); E21.1 Secondary hyperparathyroidism, not elsewhere classified; E89.1 Postprocedural hypoinsulinemia; K90.89 Other intestinal malabsorption; E55.9 Vitamin D deficiency, unspecified; K76.9 Liver disease, unspecified; N19 Unspecified kidney failure; K50.90 Crohn's disease, unspecified, without complications; D50.8 Other iron deficiency anemias
CPT/HCPCS: 36415; 80053; 80061; 82525; 82607; 82728; 82746; 83036; 83540; 83550; 83735; 83970; 84100; 84134; 84255; 84425; 84443; 84590; 84630; 85027; 85610; 85730

== ENCOUNTER → 2019-01-04 | Outpatient (CLI) | payer MEDICARE ==
--- NOTE | 2019-01-05 08:18 | CT ---
EXAMINATION TYPE: CT abdomen pelvis w con DATE OF EXAM: 01/04/2019 HISTORY: Lower abdominal pain per patient. Diverticulitis per order. CT DLP: 1261mGycm Automated Exposure Control for Dose Reduction was Utilized. CONTRAST: CT scan of the abdomen and pelvis is performed with IV Contrast, patient injected with 100 mL of Isov ue 300. COMPARISON: CT abdomen and pelvis October 10, [address] April 07, 2018. FINDINGS: LUNG BASES: Partial visualization of bilateral breast implants with prominent infolding suggesting pr obable bilateral intracapsular rupture. LIVER/GB: No significant abnormality is appreciated. PANCREAS: No significant abnormality is seen. SPLEEN: No significant abnormality is seen. ADRENALS: No significant abnormality is seen. KIDNEYS: No significant abnormality is seen. BOWEL: The oral contrast does not reach level terminal ileum making evaluation of distal bowel slight ly suboptimal. There is no suspicious small or large bowel dilatation. Surgical sutures from prior pa rtial bowel resection and re-anastomosis are seen at level of sigmoid colon left pelvis axial image 5 7. Some adjacent diverticula are seen. No CT evidence for new inflammatory change to suggest acute di verticulitis. Small amount of free fluid left posterior pelvis axial image 63 is less prominent versu s prior CT. UTERUS/ADNEXA: Uterus is surgically absent. LYMPH NODES: No greater than 1cm abdominal or pelvic lymph nodes are appreciated. OSSEOUS STRUCTURES: Extensive surgical changes in the spine is redemonstrated with multiple interpedi cular rods and screws transfixing T12-S1 levels bilaterally. Persistent levoconvex scoliotic curvatur e. Multilevel artificial disc material in the mid to lower lumbar spine. Some ossific fusion are viri red arthrodesis noted. OTHER: Mild to moderate calcified plaque of the aorta extends into branch vessels. Persistent fat str anding left lateral abdominal wall favoring surgical scarring axial image 40 given stability from karli or. IMPRESSION: Persistent diverticula sigmoid colon near the sutures. Improving adjacent pelvic fluid. N o CT evidence for new areas of acute diverticulitis. No bowel obstruction.
== END | disposition home or self-care (01) ==
LOC: RADCTMAIN 15:47
PROVIDERS: ATTEND Surgery Plastic and Reconstructive Surgery
DX: K57.32 Diverticulitis of large intestine without perforation or abscess without bleeding (principal); K57.30 Diverticulosis of large intestine without perforation or abscess without bleeding
CPT/HCPCS: 82565; 84520; 74177; 36415; Q9967

== ENCOUNTER 2019-02-06 12:23 | Emergency (ER) | payer MEDICARE ==
[2019-02-06 12:33] VITALS: TEMP 99
--- NOTE | 2019-02-06 13:17 | ED ---
General Adult HPI - General Chief complaint: Eye Problems Stated complaint: blurred vision/headache Time Seen by Provider: 02/06/19 12:30 Source: patient, RN notes reviewed Mode of arrival: wheelchair Limitations: no limitations - History of Present Illness Initial comments: This is a 78-year-old female who states she had a cataract surgery done on the right eye and along with some glaucoma surgery 2 weeks ago she states after the surgery she was very painful and had blurred vision of that I saw her tipple supervisor multiple times that we can it slowly improved but she states she still has some blurred vision out of that eye and there is some slight pain occasionally. Patient states a week after that she had the same surgery done on her left eye it went better however her vision in that eye remains blurry as well. Patient states since she had that surgery she has double vision when she watches TV and blurred vision looking at anything. Patient states last night she started having a right-sided headache in the occipital region and also some pain in her right side of her neck. Patient states it's not a sore throat it's inside further. Patient denies any numbness or weakness. Patient denies any worsening visual stirrups patient denies any speech disturbance patient denies any facial droop. Patient states this headache she has had before but she has never experienced a throbbing pain in her neck. Patient states she does have MS. - Related Data Home Medications Medication Instructions Recorded Confirmed Cyanocobalamin [Vitamin B-12] 500 mcg PO DAILY 06/26/18 02/06/19 Omeprazole [PriLOSEC] 40 mg PO DAILY 08/07/18 02/06/19 Vitamin C/Biotin [Hair, Skin and 1 tab PO DAILY 08/07/18 02/06/19 Nails] Cholecalciferol [Vitamin D3 (25 1,000 unit PO DAILY 02/06/19 02/06/19 Mcg = 1000 Iu)] Collagen Powder 1 scoop PO DAILY 02/06/19 02/06/19 Difluprednate [Durezol] 1 drop BOTH EYES BID 02/06/19 02/06/19 Eye Vitamin(Unknown) 1 tab PO DAILY 02/06/19 02/06/19 Nepafenac [Ilevro] 1 drop BOTH EYES DAILY 02/06/19 02/06/19 [place]-3 Fatty Acids [[place]-3] 1,000 mg PO DAILY 02/06/19 02/06/19 Ubidecarenone [Co Q-10] 100 mg PO DAILY 02/06/19 02/06/19 buPROPion HCL [Wellbutrin XL] 300 mg PO DAILY 02/06/19 02/06/19 Allergies Allergy/AdvReac Type Severity Reaction Status Date / Time cephalexin [From Keflex] Allergy Itching Verified 02/06/19 13:11 Review of Systems ROS Statement: Those systems with pertinent positive or pertinent negative responses have been documented in the HPI. ROS Other: All systems not noted in ROS Statement are negative. Past Medical History Past Medical History: Fibromyalgia, GERD/Reflux, Musculoskeletal Disorder, Osteoarthritis (OA) Additional Past Medical History / Comment(s): Current UTI, on antibiotics, patient states Dr Brian aware. "BP runs low normal, chronic back pain, Hiatal hernia, twisted bowel." History of Any Multi-Drug Resistant Organisms: None Reported Past Surgical History: Adenoidectomy, Appendectomy, Back Surgery, Breast Surgery, Hysterectomy, Tonsillectomy Additional Past Surgical History / Comment(s): Dilip in back, breast implants, cataract surgery, bowel surgery Past Anesthesia/Blood Transfusion Reactions: No Reported Reaction Additional Past Anesthesia/Blood Transfusion Reaction / Comment(s): can not lay flat due to dilip in back Past Psychological History: Anxiety, Depression Smoking Status: Former smoker Past Alcohol Use History: Daily Past Drug Use History: None Reported - Past Family History Father Additional Family Medical History / Comment(s): carotid artery disease Mother Family Medical History: Cancer Additional Family Medical History / Comment(s): lung General Exam - General Exam Comments Initial Comments: GENERAL: Patient is well-developed and well-nourished. Patient is nontoxic and well- hydrated and is in mild distress. ENT: Neck is soft and supple. No significant lymphadenopathy is noted. Oropharynx is clear. Moist mucous membranes. Neck has full range of motion without eliciting any pain. EYES: The sclera were anicteric and conjunctiva were pink and moist. There is no injections noted. Extraocular movements were intact and pupils were equal round and reactive to light. Eyelids were unremarkable. PULMONARY: Unlabored respirations. Good breath sounds bilaterally. No audible rales rhonchi or wheezing was noted. CARDIOVASCULAR: There is a regular rate and rhythm without any murmurs gallops or rubs. ABDOMEN: Soft and nontender with normal bowel sounds. No palpable organomegaly was noted. There is no palpable pulsatile mass. SKIN: Skin is clear with no lesions or rashes and otherwise unremarkable. NEUROLOGIC: Patient is alert and oriented x3. Cranial nerves II through XII are grossly intact. Motor and sensory are also intact. Normal speech, volume and content. Symmetrical smile. Cerebellar exam grossly intact. MUSCULOSKELETAL: Normal extremities with adequate strength and full range of motion. LYMPHATICS: No significant lymphadenopathy is noted PSYCHIATRIC: Normal psychiatric evaluation. Limitations: no limitations Course Vital Signs 02/06/19 02/06/19 12:29 17:33 Temperature 99 F Pulse Rate 81 82 Respiratory 20 16 Rate Blood Pressure 132/71 133/72 O2 Sat by Pulse 94 L 96 Oximetry Medical Decision Making - Medical Decision Making EKG shows normal sinus rhythm at 76 bpm TN interval is 190 QRS is 96 Q-T intervals 384 QTC is 432. Recent EKG shows no ST segment elevation or depression. Patient's CT of the brain shows no acute abnormality. Patient's CT of the head and neck shows no acute normalities. I suggested the patient stay and and see neurology. Patient initially agreed but later decided to leave. Patient states she would follow-up with her neurologist and tipple supervisor. - Lab Data Result diagrams: 02/06/19 13:50 02/06/19 13:50 Lab Results 02/06/19 02/06/19 02/06/19 Range/Units 13:50 13:50 13:50 WBC 8.8 (3.8-10.6) k/uL RBC 4.05 (3.80-5.40) m/uL Hgb 12.5 (11.4-16.0) gm/dL Hct 38.0 (34.0-46.0) % MCV 93.6 (80.0-100.0) fL MCH 30.7 (25.0-35.0) pg MCHC 32.8 (31.0-37.0) g/dL RDW 13.3 (11.5-15.5) % Plt Count 228 (150-450) k/uL Neutrophils % 69 % Lymphocytes % 20 % Monocytes % 6 % Eosinophils % 2 % Basophils % 1 % Neutrophils # 6.1 (1.3-7.7) k/uL Lymphocytes # 1.8 (1.0-4.8) k/uL Monocytes # 0.5 (0-1.0) k/uL Eosinophils # 0.2 (0-0.7) k/uL Basophils # 0.1 (0-0.2) k/uL PT 9.7 (9.0-12.0) sec INR 0.9 (<1.2) APTT 24.2 (22.0-30.0) sec Sodium 141 (137-145) mmol/L Potassium 4.3 (3.5-5.1) mmol/L Chloride 104 (98-107) mmol/L Carbon Dioxide 26 (22-30) mmol/L Anion Gap 11 mmol/L BUN 20 H (7-17) mg/dL Creatinine 1.00 (0.52-1.04) mg/dL Est GFR (CKD-EPI)AfAm 64 (>60 ml/min/1.73 sqM) Est GFR (CKD-EPI)NonAf 55 (>60 ml/min/1.73 sqM) Glucose 95 (74-99) mg/dL Calcium 10.4 H (8.4-10.2) mg/dL Total Bilirubin 0.6 (0.2-1.3) mg/dL AST 21 (14-36) U/L ALT 23 (9-52) U/L Alkaline Phosphatase 75 (38-126) U/L Troponin I (0.000-0.034) ng/mL Total Protein 7.7 (6.3-8.2) g/dL Albumin 4.8 (3.5-5.0) g/dL 02/06/19 Range/Units 13:50 WBC (3.8-10.6) k/uL RBC (3.80-5.40) m/uL Hgb (11.4-16.0) gm/dL Hct (34.0-46.0) % MCV (80.0-100.0) fL MCH (25.0-35.0) pg MCHC (31.0-37.0) g/dL RDW (11.5-15.5) % Plt Count (150-450) k/uL Neutrophils % % Lymphocytes % % Monocytes % % Eosinophils % % Basophils % % Neutrophils # (1.3-7.7) k/uL Lymphocytes # (1.0-4.8) k/uL Monocytes # (0-1.0) k/uL Eosinophils # (0-0.7) k/uL Basophils # (0-0.2) k/uL PT (9.0-12.0) sec INR (<1.2) APTT (22.0-30.0) sec Sodium (137-145) mmol/L Potassium (3.5-5.1) mmol/L Chloride (98-107) mmol/L Carbon Dioxide (22-30) mmol/L Anion Gap mmol/L BUN (7-17) mg/dL Creatinine (0.52-1.04) mg/dL Est GFR (CKD-EPI)AfAm (>60 ml/min/1.73 sqM) Est GFR (CKD-EPI)NonAf (>60 ml/min/1.73 sqM) Glucose (74-99) mg/dL Calcium (8.4-10.2) mg/dL Total Bilirubin (0.2-1.3) mg/dL AST (14-36) U/L ALT (9-52) U/L Alkaline Phosphatase (38-126) U/L Troponin I <0.012 (0.000-0.034) ng/mL Total Protein (6.3-8.2) g/dL Albumin (3.5-5.0) g/dL Disposition Clinical Impression: Diplopia Disposition: HOME SELF-CARE Condition: Good Instructions (If sedation given, give patient instructions): [place]opia (ED) Additional Instructions: Patient should follow-up with her neurologist and tipple supervisor. Is patient prescribed a controlled substance at d/c from ED?: No Referrals: Edgardo Roblero MD [Primary Care Provider] - 1-2 days Time of Disposition: 18:09
[2019-02-06 14:09] LABS: Basophils # (A) 0.1 k/uL (0-0.2); Basophils % (A) 1 %; Eosinophils # (A) 0.2 k/uL (0-0.7); Eosinophils % (A) 2 %; HGB 12.5 gm/dL (11.4-16.0); Lymphocytes # (A) 1.8 k/uL (1.0-4.8); Lymphocytes % (A) 20 %; MCH 30.7 pg (25.0-35.0); MCHC 32.8 g/dL (31.0-37.0); MCV 93.6 fL (80.0-100.0); Mean Platelet Volume 8.6; Monocytes # (A) 0.5 k/uL (0-1.0); Monocytes % (A) 6 %; Neutrophils # (A) 6.1 k/uL (1.3-7.7); Neutrophils % (A) 69 %; Platelet Count 228 k/uL (150-450); RBC 4.05 m/uL (3.80-5.40); RDW 13.3 % (11.5-15.5); WBC 8.8 k/uL (3.8-10.6)
[2019-02-06 14:18] LABS: INR 0.9 (<1.2); Partial Thromboplastin Time 24.2 sec (22.0-30.0); Prothrombin Time 9.7 sec (9.0-12.0)
--- NOTE | 2019-02-06 14:21 | XR ---
EXAMINATION TYPE: XR chest 2V DATE OF EXAM: 02/06/2019 COMPARISON: Prior chest x-ray 10/30/2013 HISTORY: Altered mental status TECHNIQUE: Frontal and lateral views of the chest are obtained. FINDINGS: There is a scoliosis. Postop changes again noted in the thoracic lumbar spine. Prominent e picardial fat pad noted. No evident airspace disease, pneumothorax, or pleural effusion. Cardiac medi astinal silhouette, pulmonary vascularity and carrie within normal limits. IMPRESSION: No acute cardiopulmonary process.
[2019-02-06 14:28] LABS: Albumin 4.8 g/dL (3.5-5.0); Calcium 10.4 mg/dL (8.4-10.2); Total Bilirubin 0.6 mg/dL (0.2-1.3); Total Protein 7.7 g/dL (6.3-8.2)
[2019-02-06 14:54] LABS: Potassium 4.3 mmol/L (3.5-5.1)
--- NOTE | 2019-02-06 15:36 | CT ---
EXAMINATION TYPE: CT angio head neck DATE OF EXAM: 02/06/2019 HISTORY: Post Op cataract surgery 1 week. Visual disturbance. COMPARISON: CT brain same date CT DLP: 422.9 mGycm. Automated Exposure Control for Dose Reduction was Utilized. TECHNIQUE: CTA scan of the neck is performed with IV Contrast, patient injected with 65 mL of Isovue 370, axial images are obtained, coronal and sagittal reformatted images are reviewed. Three-D recons tructed images are created on an independent workstation and reviewed. FINDINGS: Carotid/Vascular Structures: Internal and external carotid arteries are patent, common carotid arteri es are patent. There is a kink in the internal carotid artery on the right. No evident stenosis by NA SCET criteria. Internal carotid artery measurements at 6 mm on the right and 5 mm on the left. Verteb ral arteries are patent. They are codominant. There is no evident embolus, dissection, or aneurysm. A nterior posterior circulation within the brain is patent. Other: IMPRESSION: No significant abnormality is seen.
--- NOTE | 2019-02-06 15:51 | CT ---
EXAMINATION TYPE: CT brain wo con DATE OF EXAM: 02/06/2019 COMPARISON: CT angiotech head and neck of the same date HISTORY: Post Op cataract surgery [address] DLP: 1038 mGycm Automated exposure control for dose reduction was used. TECHNIQUE: CT scan of the head is performed without contrast. FINDINGS: There is no acute intracranial hemorrhage or midline shift identified. There is diffuse v entricular and sulcal prominence consistent with diffuse age-related cerebral atrophy. There is low- attenuation in the periventricular white matter consistent with chronic small vessel ischemic change. Few dystrophic calcifications are seen within the left basal ganglia. The globes are intact and the visualized sinuses are clear. Mild leftward nasal septal deviation is seen. Small steven bullosa o n the right. Orbits are symmetric. Lenses are atrophic. No intraconal or extraconal fat stranding. No preseptal or post septal mass or hematoma. IMPRESSION: No acute intracranial hemorrhage or midline shift. There is diffuse age-related cerebra l atrophy and chronic small vessel ischemic change noted.
[2019-02-06 18:04] VITALS: BP 133/72; PULSE 82; RESP 16
== END 2019-02-06 18:42 | disposition home or self-care (01) ==
LOC: EC 12:23
DX: H53.2 Diplopia (principal); M54.2 Cervicalgia; G35 Multiple sclerosis; K21.9 Gastro-esophageal reflux disease without esophagitis; F32.9 Major depressive disorder, single episode, unspecified; N39.0 Urinary tract infection, site not specified; G89.29 Other chronic pain; Z87.891 Personal history of nicotine dependence; Z88.1 Allergy status to other antibiotic agents; Z79.899 Other long term (current) drug therapy; Z96.698 Presence of other orthopedic joint implants; Z98.890 Other specified postprocedural states
CPT/HCPCS: 36415; 93005; 80053; 84484; 85025; 85610; 85730; 71046; 70496; 70450; 70498; 99285; Q9967

== ENCOUNTER → 2019-06-12 | Outpatient (CLI) | payer MEDICARE ==
--- NOTE | 2019-06-12 16:04 | CT ---
EXAMINATION TYPE: CT chest wo con DATE OF EXAM: 06/12/2019 COMPARISON: Chest x-ray 06/12/2019 HISTORY: Cough and SOB x5 months CT DLP: 611.4 mGycm. Automated Exposure Control for Dose Reduction was Utilized. TECHNIQUE: CT scan of the thorax is performed without IV contrast using high-resolution algorithm in prone and supine positions, spacing between slices. FINDINGS: LUNGS: The lungs are grossly clear, there is no concerning parenchymal mass or nodule identified. T here is no pleural effusion or pneumothorax seen. The tracheobronchial tree is patent. No significan t interstitial change. No evident air trapping. Some mild central bronchiectasis is present. MEDIASTINUM: Lack of IV contrast is noted to limit evaluation for mediastinal and especially hilar ad enopathy. There are no definitive greater than 1 cm hilar or mediastinal lymph nodes. No cardiomega ly or pericardial effusion is seen. OTHER: Bilateral breast prostheses. Postop changes are noted to the lumbar spine, there is an hiatal hernia present with partial intrathoracic stomach IMPRESSION: There is some central bronchiectasis noted.
== END | disposition home or self-care (01) ==
LOC: RADCTMAIN 14:14
PROVIDERS: ATTEND Internal Medicine
DX: J47.9 Bronchiectasis, uncomplicated (principal)
CPT/HCPCS: 71250

== ENCOUNTER → 2019-06-27 | Outpatient (CLI) | payer MEDICARE ==
[2019-06-27 15:01] LABS: Basophils # (A) 0.1 k/uL (0-0.2); Basophils % (A) 0 %; Eosinophils # (A) 0.2 k/uL (0-0.7); Eosinophils % (A) 2 %; HCT 37.2 % (34.0-46.0); HGB 12.4 gm/dL (11.4-16.0); Lymphocytes % (A) 18 %; MCH 30.4 pg (25.0-35.0); MCHC 33.2 g/dL (31.0-37.0); MCV 91.6 fL (80.0-100.0); Mean Platelet Volume 8.8; Monocytes # (A) 0.6 k/uL (0-1.0); Monocytes % (A) 5 %; Neutrophils # (A) 7.9 k/uL (1.3-7.7); Neutrophils % (A) 73 %; Platelet Count 298 k/uL (150-450); RBC 4.06 m/uL (3.80-5.40); WBC 10.8 k/uL (3.8-10.6)
[2019-06-27 15:21] LABS: Total Eosinophil Count 238 #EOS/uL (150-300)
[2019-06-27 19:32] LABS: Immunoglobulin E 16.3 IU/mL (0.00-114.00)
[2019-06-28 11:27] LABS: Immunoglobulin M 82.4 mg/dL (40.0-280.0)
== END | disposition home or self-care (01) ==
LOC: LABWHC1 14:07
PROVIDERS: ATTEND Internal Medicine
DX: J47.9 Bronchiectasis, uncomplicated (principal)
CPT/HCPCS: 36415; 82784; 82785; 85008; 85025

== ENCOUNTER → 2019-09-26 | Outpatient (CLI) | payer MEDICARE | END | disposition home or self-care (01) | LOC: LABWHC1 12:25 | PROVIDERS: ATTEND Surgery Plastic and Reconstructive Surgery | DX: U07.1 COVID-19 (principal) ==

== ENCOUNTER → 2019-09-28 | Day surgery (SDC) | payer MEDICARE ==
[2019-09-27 08:56] VITALS: BMI 28.3
[~2019-09-28] MED LIST changes: +ACETAMINOPHEN TAB 500 MG TAB PO STA; +DEXAMETHASONE SOD PHOSPHATE 10 MG/ML 1 ML VIAL IV ONE; +GABAPENTIN 300 MG CAP PO STA; +GLYCOPYRROLATE 0.2 MG/ML 2 ML VIAL ONE; +HEPARIN SODIUM,PORCINE 5,000 UNIT/ML 1 ML VIAL SQ ONE; +HYDROcodone/APAP 5-325MG 1 EACH TAB PO ONE; +HYDROmorphone (PF) 1 MG/ML ONE; +KETOROLAC 30 MG/ML 1 ML VIAL IVP PRN; +LACTATED RINGERS 1,000 ML IV ONE; +LIDOCAINE 1% (10MG/ML) FOR IV START INTRADERMA ONE; -LIDOCAINE 1% 20 ML VIAL (10MG/ML) FOR IV START INTRADERMA ONE; -LIDOCAINE 1% 20 ML VIAL (10MG/ML) FOR IV START INTRADERMA PRN; +LIDOCAINE 1%-EPI 1:100,000 20 ML VIAL SQ ONE; +MIDAZOLAM 2 MG/2 ML VIAL IV ONE; +MIDAZOLAM 2 MG/2 ML VIAL IV PRN; +NEOSTIGMINE 1 MG/ML 10 ML VIAL ONE; +ONDANSETRON 4 MG/2 ML VIAL IVP ONE; +ROCURONIUM BROMIDE 10 MG/ML 5 ML VIAL IV ONE; +SCOPOLAMINE 1.5MG/72HR PATCH TRANSDERM ONE; +SIMETHICONE 80 MG CHEWABLE PO ONE; +SUCCINYLCHOLINE CHLORIDE 100 MG/5 ML SYR IV ONE; +TAMSULOSIN 0.4 MG CAP.ER.24H PO STA; +diphenhydrAMINE 50 MG/ML 1 ML VIAL IVP ONE; +ePHEDrine SULFATE/0.9% NACL/PF 50 MG/5 ML SYRINGE IV ONE; +fentaNYL (PF) 50 MCG/ML 2 ML AMP IV ONE; +fentaNYL (PF) 50 MCG/ML 2 ML AMP ONE
--- NOTE | 2019-09-28 06:19 | P.GSHP ---
History of Present Illness H&P Date: 09/28/19 CHIEF COMPLAINT: Left upper quadrant swelling. HISTORY OF PRESENT ILLNESS: Stella Garrett is a 78-year-old female who has now developed an incisional hernia along the left upper quadrant. She had a previous history of sigmoid volvulus and at this point, she reports no troubles with her bowel habits. She does report pain and discomfort in her left upper quadrant, hence her presentation today. She reports that it has been ongoing for the past six months. PAST MEDICAL HISTORY: Please see list. PAST SURGICAL HISTORY: Please see list. MEDICATIONS: Please see list. ALLERGIES: Please see list. SOCIAL HISTORY: No illicit drug use FAMILY HISTORY: No reports of Crohn disease or ulcerative colitis. REVIEW OF ORGAN SYSTEMS: Additionally reports: CONSTITUTIONAL: No fevers or chills. HEENT: Denies any trouble with vision, hearing or nosebleeds. No difficulty swallowing. LYMPHATIC: The patient denies any lumps and bumps around the neck. ENDOCRINE: Denies any thyroid disorders. Denies any blood sugar glucose intolerance. RESPIRATORY: Denies pneumonia. Denies any troubles with breathing or dyspnea on exertion. CARDIOVASCULAR: Denies any chest pain, palpitations, or recent heart attacks. GASTROINTESTINAL: Denies fatty food intolerance. Has gastroesophageal reflux disease. GENITOURINARY: Denies any blood in urine or increased urinary frequency. MUSCULOSKELETAL: Has back pain, stiffness or joint arthritis. NEUROLOGIC: Denies any numbness or tingling along the distal extremities. No seizure disorders or headaches. PSYCHIATRIC: Has depression. No suicidal ideation. Has anxiety disorder HEMATOLOGIC: Denies any abnormal bleeding or bruising. BREASTS: Denies any breast lumps, pain or nipple discharge. SKIN: No current skin cancer. No rash. PHYSICAL EXAM: Patient is a 78-year-old female. CONSTITUTIONAL: Well developed and in no acute distress. Vitals reviewed. EYES: Conjuctivae without sclera icterus. Pupils are equally round and reactive to light. Extraocular movements grossly intact. HEAD, EARS, NOSE, THROAT: Moist buccal mucosa. Head is atraumatic, normocephalic. Hears conversational speech. No nasal drainage. NECK: Supple. No JV distention. No thyroidomegaly. RESPIRATORY: Non-labored respirations and equal bilateral excursions. No gross wheezes. CARDIOVASCULAR: Regular rate and rhythm. Extremities without moderate edema. Palpable 2+ radial pulses. LYMPH: No neck lymphadenopathy. No axillary lymphadenopathy. MUSCULOSKELETAL: Nail and fingers with good capillary refill. SKIN: Warm and well perfused with good skin turgor. NEUROLOGIC: Cranial nerves II through XII grossly intact. Sensation upper and extremities intact. No focal or lateralizing signs. PSYCH: Appropriate affect. Alert and oriented to person, place and time. Displays appropriate insight. Abdomen: Protuberance of the left upper quadrant and incisional hernia. STUDIES: CT of the abdomen and pelvis independentnly reviewed demonstrating fat containing incisional hernia of the left upper quadrant. ASSESSMENT: 1. Incisional ventral hernia. PLAN: 1. Recommend proceeding with robotic ventral hernia repair with mesh. 2. Benefits and risks of surgical intervention was discussed including possibility of open technique. 3. DVT prophylaxis. 4. Antibiotic prophylaxis. Past Medical History Past Medical History: Fibromyalgia, GERD/Reflux, Hearing Disorder / Deafness, Musculoskeletal Disorder, Osteoarthritis (OA) Additional Past Medical History / Comment(s): Has MS. BP runs low normal, chronic back pain, Hiatal hernia, incisional hernia. Hx productive cough, had Bronch 06/14/19, showed bronchiectasis; hx "yeast" in throat. History of Any Multi-Drug Resistant Organisms: None Reported Past Surgical History: Adenoidectomy, Appendectomy, Back Surgery, Bowel Resecti on, Breast Surgery, Hysterectomy, Tonsillectomy Additional Past Surgical History / Comment(s): Rods in back, breast implants, cataract surgery. Bronchoscopy 06/14/19 Past Anesthesia/Blood Transfusion Reactions: No Reported Reaction Additional Past Anesthesia/Blood Transfusion Reaction / Comment(s): can not lay flat due to ashwini in back. Daughter has PONV. Smoking Status: Former smoker - Past Family History Father Additional Family Medical History / Comment(s): carotid artery disease Mother Family Medical History: Cancer Additional Family Medical History / Comment(s): lung Medications and Allergies Home Medications Medication Instructions Recorded Confirmed Type Omeprazole [PriLOSEC] 40 mg PO DAILY 08/07/18 09/27/19 History buPROPion HCL [Wellbutrin XL] 300 mg PO DAILY 02/06/19 09/27/19 History Ibuprofen [Motrin] 800 mg PO Q8H PRN 09/27/19 09/27/19 History Allergies Allergy/AdvReac Type Severity Reaction Status Date / Time cephalexin [From Keflex] Allergy Itching Verified 09/27/19 08:37
[2019-09-28 06:40] LABS: Basophils # (A) 0.1 k/uL (0-0.2); Basophils % (A) 1 %; Eosinophils # (A) 0.3 k/uL (0-0.7); Eosinophils % (A) 4 %; HCT 35.8 % (34.0-46.0); HGB 12.1 gm/dL (11.4-16.0); Lymphocytes # (A) 1.9 k/uL (1.0-4.8); Lymphocytes % (A) 30 %; MCH 31.3 pg (25.0-35.0); MCHC 33.7 g/dL (31.0-37.0); MCV 92.7 fL (80.0-100.0); Mean Platelet Volume 9.2; Monocytes # (A) 0.5 k/uL (0-1.0); Monocytes % (A) 8 %; Neutrophils # (A) 3.4 k/uL (1.3-7.7); Neutrophils % (A) 55 %; Platelet Count 237 k/uL (150-450); RBC 3.87 m/uL (3.80-5.40); RDW 12.9 % (11.5-15.5); WBC 6.2 k/uL (3.8-10.6)
[2019-09-28 06:56] LABS: Albumin 4.2 g/dL (3.5-5.0); Calcium 9.2 mg/dL (8.4-10.2); Potassium 4.1 mmol/L (3.5-5.1); Total Bilirubin 0.5 mg/dL (0.2-1.3); Total Protein 7.2 g/dL (6.3-8.2)
[2019-09-28 09:19] VITALS: TEMP 97.9
[2019-09-28] MEDS: HYDROmorphone 0.5 MG/0.5 ML SYRINGE IVP PRN ×4 (09:41→10:24)
--- NOTE | 2019-09-28 09:44 | P.OP ---
Date of Procedure: 09/28/19 Description of Procedure: SURGEON: EDITH GARCIA MD PREOPERATIVE DIAGNOSES: 1. Initial incarcerated incisional hernia, left upper quadrant 2. Depressive disorder 3. Gastroesophageal reflux disease 4. Obesity due to excess calories, BMI 30.1 5. Fibromyalgia POSTOPERATIVE DIAGNOSES: 1. Initial incarcerated incisional hernia, left upper quadrant, 4 cm 2. Depressive disorder 3. Gastroesophageal reflux disease 4. Obesity due to excess calories, BMI 30.1 5. Fibromyalgia 6. Peritoneal adhesions, left upper quadrant OPERATION: 1. Robotic-assisted da Migue Xi laparoscopic repair of initial incarcerated left upper quadrant incisional hernia 4-cm with mesh, ventralight ST mesh 11.4 cm 2. Robotic-assisted da M[place] Xi laparoscopic lysis of adhesions over 30 minutes Anesthesia: GETA, regional, local Estimated Blood Loss (ml): 5 Pathology: None. COMPLICATIONS: None. Operative Findings: 1. Robotic incisional hernia repair, 11.4 cm circular mesh 4 cm defect with fascial medication 2 2. Fascia repaired using #1 V-lock suture INDICATIONS: The patient is a 78-year-old female who presents with a personal history of left upper quadrant incisional hernia. Surgical intervention with laparoscopic versus robotic and open techniques were reviewed. Placement of mesh was also reviewed. Benefits and risks were thoroughly described. Informed consent was obtained. DESCRIPTION OF PROCEDURE: The patient was brought into the operating room and laid in supine position. After general induction, the abdomen had been prepped and draped in standard sterile fashion. Ioban draping was also placed. Prior to incision, a timeout protocol was confirmed with surgical team regarding the patient's name including procedures to be performed. The robot was primed prior to the procedure. A field block using local anesthetic was placed along hernia site including the proposed port sites. Initial incision was made with an #11 blade along the left upper quadrant. A 0 degree 5 mm laparoscopic trocar entry was performed and insufflated. Three 8 mm ports were placed along the right lateral abdominal wall. Placements of the ports were 15 cm from the target anatomy and 10 cm apart. An accessory 12 mm port was exchanged from the 5 mm trocar at the left upper quadrant for exchange of mesh including sutures. The [place] robot was previously primed, prepped and draped then docked from the right side of the patient onto the left side of the patient. I then sat at the robot Da Migue Xi console where working arms of the robot including Bovie cautery connected to robotic scissors, needle cdl company driver, and graspers placed by the bookkeeping assistant. Incarcerated omental contents were found along the left upper quadrant and reduced. Peritoneal adhesions along the left upper quadrant were dissected free using hook Bovie cautery to expose the 4 x 4 centimeter defect of the left upper quadrant. The incarcerated contents were reduced as the peritoneal fat was cleaned from the abdominal wall. Next, hemostasis was checked with cautery. The hernia defect was oversewn using #1 nonabsorbable V-lock suture with fascial imbrication x 2. Next, ventralight ST mesh 11.4 cm was placed with the rough side towards the abdominal wall. 2-0 VLOC 9 inch sutures were used to fixate the mesh. A final endoscopic imaging was obtained. All instruments and pneumoperitoneum were evacuated from the abdominal cavity. The da Migue Xi robot was undocked from the patient. I re-scrubbed into the case for closure of incisions. The fascia of the 12-mm port was probed and less than 8-mm in size. The incisions were reapproximated using 4-0 Monocryl in an interrupted subcuticular fashion. Liquid glue was applied to the skin after cleansing the skin with normal saline and dilute hydrogen peroxide. An abdominal binder was placed. At the end of the procedure, needle, sponge, and instrument count had been verified correct by surgical pathologist. The patient was taken to the postanesthesia care unit in stable condition. Plan - Discharge Summary Discharge Rx Participant: Yes New Discharge Prescriptions: New HYDROcodone/APAP 5-325MG [[place] 5-325] 1 tab PO Q6HR PRN 3 Days #10 tab PRN Reason: Pain Continue Omeprazole [PriLOSEC] 40 mg PO DAILY buPROPion HCL [Wellbutrin XL] 300 mg PO DAILY Ibuprofen [Motrin] 800 mg PO Q8H PRN PRN Reason: Pain Discharge Medication List Omeprazole [PriLOSEC] 40 mg PO DAILY 08/07/18 [History] buPROPion HCL [Wellbutrin XL] 300 mg PO DAILY 02/06/19 [History] Ibuprofen [Motrin] 800 mg PO Q8H PRN 09/27/19 [History] HYDROcodone/APAP 5-325MG [[place] 5-325] 1 tab PO Q6HR PRN 3 Days #10 tab 09/28/19 [Rx] Follow up Appointment(s)/Referral(s): Edith Garcia MD [STAFF PHYSICIAN] - 10/02/19 (please call and make follow up appt. time office closed) Patient Instructions/Handouts: *Surgery [facility] - (Anesthesia) Discharge Instructions Outpatient Surgery, Abdominal Binder (GEN), Incisional Hernia (DC) Activity/Diet/Wound Care/Special Instructions: Wear abdominal binder at all times No lifting over 4 pounds in 4 weeks until Jun 25. August shower. No bath tub soaks for two weeks until Jun. Diet as tolerated. No driving while on narcotics. Use Tylenol and ibuprofen scheduled for the next 24-48 hours for best pain relief. Use ice along incisions for the today to prevent swelling. Discharge Disposition: HOME SELF-CARE
--- NOTE | 2019-09-28 10:30 | P.ANPRN ---
Procedure Note - Anesthesia - Nerve Block Performed Left Transversus Abdominis Single Time Out Performed: Yes ([id number]) Date of Procedure: 09/28/19 Procedure Start Time: 07:18 Procedure Stop Time: 07:25 Location of Patient: PreOp Indication: Acute Post-Operative Pain, Requested by Surgeon Specifically requested for management of pain by : Edith Garcia Sedation Type: Sedate with meaningful contact maintained Preparation: Sterile Prep Position: Supine Catheter: None Needle Types: Pajunk Needle Gauge: 20, 21 Ultrasound used to visualize needle placement: Yes Ultrasound used to observe medication spread: Yes Injectate: 0.5% Ropivacaine (see comment for volume) (25cc) Blood Aspirated: No Pain Paresthesia on Injection Noted: No Resistance on Injection: Normal Image Stored and Saved: Yes Events: Uneventful and Well Tolerated
[2019-09-28 11:27] VITALS: RESP 16
[2019-09-28 13:37] VITALS: BP 128/75; PULSE 94
== END | disposition home or self-care (01) ==
LOC: OR 05:58
PROVIDERS: ATTEND Surgery Plastic and Reconstructive Surgery
DX: K43.0 Incisional hernia with obstruction, without gangrene (principal); K66.0 Peritoneal adhesions (postprocedural) (postinfection); K21.9 Gastro-esophageal reflux disease without esophagitis; F32.9 Major depressive disorder, single episode, unspecified; E66.09 Other obesity due to excess calories; M79.7 Fibromyalgia; H91.90 Unspecified hearing loss, unspecified ear; M19.90 Unspecified osteoarthritis, unspecified site; G35 Multiple sclerosis; G89.29 Other chronic pain; M54.9 Dorsalgia, unspecified; K44.9 Diaphragmatic hernia without obstruction or gangrene; F41.9 Anxiety disorder, unspecified; Z68.30 Body mass index [BMI] 30.0-30.9, adult; Z88.1 Allergy status to other antibiotic agents; Z87.19 Personal history of other diseases of the digestive system; Z87.09 Personal history of other diseases of the respiratory system; Z86.19 Personal history of other infectious and parasitic diseases; Z90.89 Acquired absence of other organs; Z90.49 Acquired absence of other specified parts of digestive tract; Z98.890 Other specified postprocedural states; Z90.710 Acquired absence of both cervix and uterus; Z98.82 Breast implant status; Z98.49 Cataract extraction status, unspecified eye; Z87.891 Personal history of nicotine dependence; Z79.899 Other long term (current) drug therapy; Z79.1 Long term (current) use of non-steroidal anti-inflammatories (NSAID); Z84.89 Family history of other specified conditions; Z82.49 Family history of ischemic heart disease and other diseases of the circulatory system; Z80.1 Family history of malignant neoplasm of trachea, bronchus and lung
CPT/HCPCS: 49655; 49329; 64486; 80053; 85025; C1781; J2250; J1200; J1644; J1100; J2710; J0690; J2405; J2001; J3010; J1885; J1170 ×2; J0330; J2704; 64488

== ENCOUNTER → 2022-02-22 | Outpatient (CLI) | payer MEDICARE ==
--- NOTE | 2022-02-22 13:34 | CT ---
EXAMINATION TYPE: CT angio chest DATE OF EXAM: 02/22/2022 COMPARISON: HRCT chest 06/12/2019 HISTORY: SOB TECHNIQUE: Contiguous axial scanning of the chest performed with IV Contrast, patient injected with 5 7 mL of Isovue 370. Coronal/sagittal MIP reconstructions performed. CT DLP: 535 mGycm Automated exposure control for dose reduction was used. FINDINGS: Bilateral retropectoral breast implants are redemonstrated. Given the curvilinear densities within th e implants, intracapsular rupture is not excluded, similar appearance compared to 2020. Heart normal size without pericardial effusion. No flattening of the interventricular septum. LAD and circumflex coronary calcifications are present. Aorta normal caliber with conventional branching anatomy. Suboptimal contrast bolus with a pulmonary artery enhancement only 145 Hounsfield units. No large marjorie tral pulmonary embolus is seen. Unable to exclude bilateral lower lobe segmental branch emboli on hig h contrast windows, for example, axial images 68 through 72. No thoracic lymphadenopathy by CT size criteria. Fat-containing right-sided Bochdalek hernia. Hazy dependent atelectasis bilaterally. Minimal emphysem atous change. No consolidation or pleural effusion. Small hiatal hernia. Visualized upper abdomen shows Moderate to advanced degenerative disc disease mid to lower thoracic spine. Partially visualized thor acolumbar fusion hardware. Dextroconvex scoliosis thoracic spine. Degenerative changes left shoulder. IMPRESSION: 1. SUBOPTIMAL CONTRAST BOLUS. GIVEN THE DEGREE OF ENHANCEMENT, UNABLE TO EXCLUDE MIXING ARTIFACT VERS US MULTIPLE SEGMENTAL BRANCH EMBOLI IN THE BILATERAL LOWER LOBES. CONSIDER RE-BOLUSING THE PATIENT. N O LARGE CENTRAL EMBOLUS IS SEEN. 2. COPD with minimal emphysematous change. 3. Small hiatal hernia.
== END | disposition home or self-care (01) ==
LOC: RADCTMAIN 12:05
PROVIDERS: ATTEND Internal Medicine
DX: J43.9 Emphysema, unspecified (principal); K44.9 Diaphragmatic hernia without obstruction or gangrene
CPT/HCPCS: 85379; 82565; 84520; 71275; 36415; Q9967

== ENCOUNTER 2022-05-12 10:08 | Day surgery (SDC) | payer MEDICARE ==
[2022-05-11 09:42] VITALS: BMI 28.6
[2022-05-12 10:50] VITALS: RESP 16; TEMP 97
[2022-05-12] MEDS ORDERED: LACTATED RINGERS 1,000 ML IV ONE (10:50)
[2022-05-12] MEDS ORDERED: PROPOFOL 10 MG/ML 20 ML VIAL IV ONE (11:45)
[2022-05-12] MEDS ORDERED: LIDOCAINE 2% INJ 20 MG/ML (2 ML VIAL) ONE (11:45)
--- NOTE | 2022-05-12 12:08 | P.PCN ---
Date of Procedure: 05/12/22 Procedure(s) Performed: BRIEF HISTORY: Patient is a 81-year-old, pleasant, white female scheduled for an upper endoscopy as a part of evaluation of reflux and history of GERD and intermittent dysphagia to solids. She is been having worsening dysphagia for the last 3 months duration. She is presently on omeprazole 20 mg milligrams daily.. PROCEDURE PERFORMED: Esophagogastroduodenoscopy with biopsy and dilation. PREOPERATIVE DIAGNOSIS: Long-standing history of GERD and intermittent dysphagia to solids. IV sedation per anesthesia. PROCEDURE: After informed consent was obtained, the patient was brought into the endoscopy unit. IV sedation was administered by Anesthesia under continuous monitoring. Initially the Olympus GIF-140 video endoscope was inserted into the mouth. Esophagus intubated without any difficulty. It was gradually advanced into the stomach and duodenum and carefully examined. The bulb and the second part of the duodenum appeared normal. The scope at this time was withdrawn to the stomach, adequately insufflated with air, and upon careful examination, mucosa of the antrum had mild gastritis and biopsies were done from this area. Mucosa of the, body, cardia and the fundus appeared normal. The scope was then withdrawn into the esophagus. The GE junction was located at 35 cm from the incisors. Small sliding type hiatal hernia noted. There was a distal esophageal Schatzki's ring at the GE junction which was dilated using 15-18 mm TTS balloon in a sequential fashion for 60 seconds. The rest of the esophagus appeared normal. There were no erosions or ulcerations seen and the patient tolerated the procedure well. IMPRESSION: 1. Distal esophageal Schatzki's ring status post balloon dilation using 15-18 mm TTS balloon as described above. 2. Small hiatal hernia. 3. Mild antral gastritis. RECOMMENDATIONS: The findings of this examination were discussed with the patient as well as a family. She was advised to follow with the biopsy results. In the meantime she will be on a clear liquid diet for lunch today. Continue with omeprazole 20 mg daily and follow antireflux measures. She will be seen in office in 3-4 weeks.
[2022-05-12 12:28] VITALS: BP 141/71; PULSE 74
== END 2022-05-12 12:50 | disposition home or self-care (01) ==
LOC: ORWHC2ENDO 10:08
PROVIDERS: ATTEND Internal Medicine Gastroenterology
DX: K22.2 Esophageal obstruction (principal); K29.50 Unspecified chronic gastritis without bleeding; K44.9 Diaphragmatic hernia without obstruction or gangrene; K21.00 Gastro-esophageal reflux disease with esophagitis, without bleeding; F41.9 Anxiety disorder, unspecified; G35 Multiple sclerosis; Z98.890 Other specified postprocedural states; Z98.82 Breast implant status; Z79.1 Long term (current) use of non-steroidal anti-inflammatories (NSAID); Z79.83 Long term (current) use of bisphosphonates; Z79.899 Other long term (current) drug therapy; Z90.49 Acquired absence of other specified parts of digestive tract
CPT/HCPCS: 43239; 43249; J2704; J2001; C1726; 88305

== ENCOUNTER 2022-07-28 13:49 | Emergency (ER) | payer MEDICARE ==
--- NOTE | 2022-07-28 14:06 | ED ---
SOB HPI - General Chief Complaint: Shortness of Breath Stated Complaint: SOB Time Seen by Provider: 07/28/22 13:54 Source: patient, EMS, RN notes reviewed Mode of arrival: EMS Limitations: no limitations - History of Present Illness Initial Comments: This is a 81-year-old female who presents to the emergency department for shortness of breath. Patient follows with Dr. Saleh for bronchiectasis. States that she saw him on 06/16/22. Since that appointment, particularly over the last 2 weeks, she feels like she has been progressively more short of breath than usual. States that she also has a productive cough with green and yellow sputum. Shortness of breath and coughing are worse when she lies down at night. Denies any swelling in her extremities or weight gain. Also denies any history of congestive heart failure. She has had minor associated chest pain with this. She scheduled an appointment with her primary care provider today regarding this problem. When she got to the office, they measured her oxygen saturation to be 86% on room air, prompting them to call EMS and have her brought to the emergency department. She was given a breathing treatment by EMS on route, which she states was very helpful. Patient does not wear oxygen at home an she is currently on room air. Denies any fevers, chills, sore throat, palpitations, abdominal pain, nausea, vomiting, diarrhea, back pain, or headaches. MD Complaint: shortness of breath, cough, chest pain Onset/Timin -: week(s) - Related Data Home Medications Medication Instructions Recorded Confirmed Ibuprofen [Motrin] 800 mg PO Q8H PRN 09/27/19 07/28/22 Diphenox-Atrop 2.5-0.025 mg 1 tab PO DAILY PRN 05/11/22 07/28/22 [Lomotil] Omeprazole 40 mg PO AC-BID 05/11/22 07/28/22 traZODone HCL 150 mg PO HS 05/11/22 07/28/22 Previous Rx's Medication Instructions Recorded Albuterol Sulfate [Albuterol 1 puff PO Q4-6H #8.5 gm 07/28/22 Sulfate Hfa] Azithromycin [Zithromax] 250 mg PO DIRECTED 5 Days #6 tab 07/28/22 Ipratropium [place] [Atrovent Hfa] 2 puff INHALATION QID PRN #12.9 gm 07/28/22 Promethazine/Dextromethorphan 5 ml PO Q4-6H PRN #473 ml 07/28/22 [Promethazine-Dm Syrup] predniSONE 50 mg PO DAILY 5 Days #5 tablet 07/28/22 Allergies Allergy/AdvReac Type Severity Reaction Status Date / Time cephalexin [From Keflex] Allergy Itching Verified 07/28/22 14:04 Review of Systems ROS Statement: Those systems with pertinent positive or pertinent negative responses have been documented in the HPI. ROS Other: All systems not noted in ROS Statement are negative. Past Medical History Past Medical History: Fibromyalgia, GERD/Reflux, Musculoskeletal Disorder, Osteoarthritis (OA), Pneumonia Additional Past Medical History / Comment(s): chronic back pain/difficulty lying flat., Hiatal hernia, chronic cough and bronchiectasis., states she gets pneumonia alot, hx covid with hospitalization, injury to right foot and walks slowly., [place]- waiting for hearing aids., states difficulty swallowing-food gets stuck. History of Any Multi-Drug Resistant Organisms: None Reported Past Surgical History: Adenoidectomy, Appendectomy, Back Surgery, Bowel Resection, Breast Surgery, Hysterectomy, Tonsillectomy Additional Past Surgical History / Comment(s): Dilip in back, breast implants, cataract surgery, egd., bronchoscopy Past Anesthesia/Blood Transfusion Reactions: No Reported Reaction Additional Past Anesthesia/Blood Transfusion Reaction / Comment(s): can not lay flat due to dilip in back Smoking Status: Former smoker - Past Family History Mother Family Medical History: Cancer General Exam Limitations: no limitations General appearance: alert, in no apparent distress Head exam: Present: atraumatic, normocephalic, normal inspection Respiratory exam: Present: wheezes, decreased breath sounds, prolonged expiratory Cardiovascular Exam: Present: regular rate, normal rhythm, normal heart sounds. Absent: systolic murmur, diastolic murmur, rubs, gallop, clicks Extremities exam: Absent: pedal edema Neurological exam: Present: alert, oriented X3, CN II-XII intact Psychiatric exam: Present: normal affect, normal mood Skin exam: Present: warm, dry, intact, normal color. Absent: rash Course Vital Signs 07/28/22 07/28/22 07/28/22 14:30 16:00 16:41 Temperature 100.4 F H 98.3 F Pulse Rate 102 H 93 99 Respiratory 19 20 Rate Blood Pressure 144/82 163/79 O2 Sat by Pulse 92 L 94 L Oximetry 07/28/22 07/28/22 16:52 17:14 Temperature 99.4 F Pulse Rate 92 Respiratory Rate Blood Pressure O2 Sat by Pulse Oximetry Medical Decision Making - Medical Decision Making This is a 81-year-old female who presents to the emergency department for shortness of breath. Was pt. sent in by a medical professional or institution? @ -Her PCP Did you speak to anyone other than the patient for history? @ -EMS Did you review nursing and triage notes? @ -Yes, and I agree, it is accurate with regards to the patient's symptoms. Were old charts reviewed? @ -No Differential Diagnosis? @ -Differential Dyspnea: Coronary syndrome, arrhythmia, tamponade, asthma, COPD, pulmonary embolism, pneumonia, pneumothorax, pulmonary effusion, anaphylaxis, diabetic ketoacidosis, flailed chest, pulmonary contusion, diaphragmatic rupture, anemia, neurom uscular, this is not meant to be an all-inclusive list. EKG interpreted by me (3pts min.)? @ -Sinus rhythm. Ventricular rate 98 beats per minute, TX interval 155 ms, QRS duration 96 ms, QTC 410 ms. X-rays interpreted by me (1pt min.)? @ -Chest x-ray obtained, my interpretation identifies no localized consolidations or infiltrates. What testing was considered but not performed? (CT, X-rays, U/S, labs)? Why? @ -None What meds were considered but not given? Why? @ -None Did you discuss the management of the patient with other professionals? @ -No Did you reconcile home meds? @ -No Was smoking cessation discussed for >3mins.? @ -No Was critical care preformed (if so, how long)? @ -No Were there social determinants of health that impacted care today? How? (Homelessness, low income, unemployed, alcoholism, drug addiction, transportation, low edu. Level, literacy, decrease access to med. care, correction, rehab)? @ -No Was there de-escalation of care discussed even if they declined? (Discuss DNR or withdrawal of care, Hospice)? @ -No What co-morbidities impacted this encounter? (DM, HTN, Smoking, COPD, CAD, Cancer, CVA, Hep., AIDS, mental health diagnosis, sleep apnea, morbid obesity)? @ -Bronchiectasis Was patient admitted / discharged? @ -Discharged. Patient was febrile on arrival at 100.4F. She was subsequently given a dose of Tylenol, which did effectively reduce the fever. Lab work obtained and found to be nonactionable. D-dimer negative when corrected for the patient's age. Chest x-ray reveals no acute process. Patient was maintaining an oxygen saturation of 93-94% on room air. DuoNeb breathing treatment administered, which she states was helpful. She was also given Robitussin for her cough. Discussed with the patient that this is most likely an exacerbation of bronchiectasis. I did offer admission, however the patient declined. Prescriptions for azithromycin, prednisone, and promethazine DM cough syrup provided with dosing instructions reviewed. I advised she also take an [id number] expectorant such as Mucinex. Prescriptions for an albuterol and Atrovent inhaler provided as well. Advised she contact Dr. Saleh's office to see if she can get a sooner appointment, which she states is currently scheduled for 08/09. She was also given very strict return parameters. Advised she continue with ibuprofen and Tylenol as needed for fevers. Undiagnosed new problem with uncertain prognosis? @ -None Drug Therapy requiring intensive monitoring for toxicity (Heparin, Nitro, Insulin, Cardizem)? @ -None Were any procedures done? @ -None Diagnosis/symptom? @ -Acute exacerbation of bronchiectasis Acute, or Chronic, or Acute on Chronic? @ -Acute on chronic Uncomplicated (without systemic symptoms) or Complicated (systemic symptoms)? @ -Uncomplicated Side effects of treatment? @ -None Exacerbation, Progression, or Severe Exacerbation] @ -Exacerbation Poses a threat to life or bodily function? @ -This can become a life threatening issue depending on how severe her respiratory compromise is. At this time she is not severely compromised. Return precautions reviewed in depth, the patient is instructed to return to the emergency department with any new, worsening, or concerning symptoms. Patient verbalized understanding. This case was discussed in detail with the attending ED physician, Dr. Hall. Presentation, findings, and treatment plan discussed in detail as well. - Lab Data Result diagrams: 07/28/22 14:16 07/28/22 14:16 Lab Results 07/28/22 07/28/2223 Range/Units 14:16 14:16 14:16 WBC 7.5 (3.8-10.6) k/uL RBC 4.06 (3.80-5.40) m/uL Hgb 12.6 (11.4-16.0) gm/dL Hct 36.3 (34.0-46.0) % MCV 89.6 (80.0-100.0) fL MCH 31.0 (25.0-35.0) pg MCHC 34.6 (31.0-37.0) g/dL RDW 13.3 (11.5-15.5) % Plt Count 182 (150-450) k/uL MPV 8.8 Neutrophils % 73 % Lymphocytes % 11 % Monocytes % 11 % Eosinophils % 2 % Basophils % 1 % Neutrophils # 5.5 (1.3-7.7) k/uL Lymphocytes # 0.8 L (1.0-4.8) k/uL Monocytes # 0.9 (0-1.0) k/uL Eosinophils # 0.2 (0-0.7) k/uL Basophils # 0.1 (0-0.2) k/uL PT 10.6 (9.0-12.0) sec INR 1.0 (<1.2) APTT 23.1 (22.0-30.0) sec D-Dimer 0.77 H (<0.60) mg/L FEU Sodium 137 (137-145) mmol/L Potassium 3.9 (3.5-5.1) mmol/L Chloride 105 (98-107) mmol/L Carbon Dioxide 23 (22-30) mmol/L Anion Gap 9 mmol/L BUN 22 H (7-17) mg/dL Creatinine 0.84 (0.52-1.04) mg/dL Est GFR (CKD-EPI)AfAm 76 (>60 ml/min/1.73 sqM) Est GFR (CKD-EPI)NonAf 66 (>60 ml/min/1.73 sqM) Glucose 98 (74-99) mg/dL Plasma Lactic Acid Nestor (0.7-2.0) mmol/L Calcium 9.1 (8.4-10.2) mg/dL Total Bilirubin 0.7 (0.2-1.3) mg/dL AST 29 (14-36) U/L ALT 24 (4-34) U/L Alkaline Phosphatase 70 (38-126) U/L Troponin I (0.000-0.034) ng/mL Total Protein 7.4 (6.3-8.2) g/dL Albumin 4.3 (3.5-5.0) g/dL Influenza Type A (PCR) (Not Detectd) Influenza Type B (PCR) (Not Detectd) RSV (PCR) (Not Detectd) SARS-CoV-2 (PCR) (Not Detectd) 07/28/22 07/28/22 07/28/22 Range/Units 14:16 14:16 14:16 WBC (3.8-10.6) k/uL RBC (3.80-5.40) m/uL Hgb (11.4-16.0) gm/dL Hct (34.0-46.0) % MCV (80.0-100.0) fL MCH (25.0-35.0) pg MCHC (31.0-37.0) g/dL RDW (11.5-15.5) % Plt Count (150-450) k/uL MPV Neutrophils % % Lymphocytes % % Monocytes % % Eosinophils % % Basophils % % Neutrophils # (1.3-7.7) k/uL Lymphocytes # (1.0-4.8) k/uL Monocytes # (0-1.0) k/uL Eosinophils # (0-0.7) k/uL Basophils # (0-0.2) k/uL PT (9.0-12.0) sec INR (<1.2) APTT (22.0-30.0) sec D-Dimer (<0.60) mg/L FEU Sodium (137-145) mmol/L Potassium (3.5-5.1) mmol/L Chloride (98-107) mmol/L Carbon Dioxide (22-30) mmol/L Anion Gap mmol/L BUN (7-17) mg/dL Creatinine (0.52-1.04) mg/dL Est GFR (CKD-EPI)AfAm (>60 ml/min/1.73 sqM) Est GFR (CKD-EPI)NonAf (>60 ml/min/1.73 sqM) Glucose (74-99) mg/dL Plasma Lactic Acid Nestor 0.7 (0.7-2.0) mmol/L Calcium (8.4-10.2) mg/dL Total Bilirubin (0.2-1.3) mg/dL AST (14-36) U/L ALT (4-34) U/L Alkaline Phosphatase (38-126) U/L Troponin I <0.012 (0.000-0.034) ng/mL Total Protein (6.3-8.2) g/dL Albumin (3.5-5.0) g/dL Influenza Type A (PCR) Not Detected (Not Detectd) Influenza Type B (PCR) Not Detected (Not Detectd) RSV (PCR) Not Detected (Not Detectd) SARS-CoV-2 (PCR) Not Detected (Not Detectd) - Radiology Data Radiology results: report reviewed, image reviewed Disposition Clinical Impression: Acute exacerbation of bronchiectasis Disposition: HOME SELF-CARE Instructions (If sedation given, give patient instructions): Bronchiectasis (ED) Additional Instructions: Return to the emergency department with any new, worsening, or concerning symptoms. Take the antibiotic and steroid as prescribed for 5 days. You can use the cough medication every 4-6 hours as needed. If this makes you drowsy, do not take it before driving or operating machinery. The albuterol and Atrovent inhalers can be used every 4-6 hours as needed for coughing and difficulty breathing. You should also take [id number] Mucinex to help you cough up mucus. Follow up with your primary care provider in 1-2 days. Prescriptions: Albuterol Sulfate [Albuterol Sulfate Hfa] 1 puff PO Q4-6H #8.5 gm Ipratropium [place] [Atrovent Hfa] 2 puff INHALATION QID PRN #12.9 gm PRN Reason: Shortness Of Breath predniSONE 50 mg PO DAILY 5 Days #5 tablet Promethazine/Dextromethorphan [Promethazine-Dm Syrup] 5 ml PO Q4-6H PRN #473 ml PRN Reason: Cough Azithromycin [Zithromax] 250 mg PO DIRECTED 5 Days #6 tab Is patient prescribed a controlled substance at d/c from ED?: No Referrals: Juan José Bolanos MD [Primary Care Provider] - 1-2 days
[2022-07-28 14:33] LABS: Basophils # (A) 0.1 k/uL (0-0.2); Basophils % (A) 1 %; Eosinophils # (A) 0.2 k/uL (0-0.7); Eosinophils % (A) 2 %; HCT 36.3 % (34.0-46.0); HGB 12.6 gm/dL (11.4-16.0); Lymphocytes # (A) 0.8 k/uL (1.0-4.8); Lymphocytes % (A) 11 %; MCHC 34.6 g/dL (31.0-37.0); MCV 89.6 fL (80.0-100.0); Mean Platelet Volume 8.8; Monocytes # (A) 0.9 k/uL (0-1.0); Monocytes % (A) 11 %; Neutrophils # (A) 5.5 k/uL (1.3-7.7); Neutrophils % (A) 73 %; Platelet Count 182 k/uL (150-450); RBC 4.06 m/uL (3.80-5.40); RDW 13.3 % (11.5-15.5); WBC 7.5 k/uL (3.8-10.6)
[2022-07-28] MEDS ORDERED: ACETAMINOPHEN TAB 325 MG TAB PO STA (14:42)
[2022-07-28 14:55] LABS: Albumin 4.3 g/dL (3.5-5.0); Calcium 9.1 mg/dL (8.4-10.2); Potassium 3.9 mmol/L (3.5-5.1); Total Bilirubin 0.7 mg/dL (0.2-1.3); Total Protein 7.4 g/dL (6.3-8.2)
[2022-07-28 15:04] LABS: Partial Thromboplastin Time 23.1 sec (22.0-30.0); Prothrombin Time 10.6 sec (9.0-12.0)
[2022-07-28] MEDS ORDERED: IPRATROPIUM-ALBUTEROL 3 ML NEB INHALATION STA (15:18)
[2022-07-28] MEDS ORDERED: guaiFENesin-DM 100-10MG/5ML 10 ML CUP PO ONE (15:22)
--- NOTE | 2022-07-28 15:22 | XR ---
EXAMINATION TYPE: XR chest 2V DATE OF EXAM: 07/28/2022 COMPARISON: CTA chest February 22, 2022. Chest x-ray June 09, 2022. HISTORY: Shortness of breath with cough and congestion. TECHNIQUE: Frontal and lateral views of the chest are obtained. FINDINGS: There is mild chronic emphysematous change without suspicious new focal air space opacity, pleural effusion, or pneumothorax seen. The cardiac silhouette size is stable and within normal contreras its. Surgical change of lumbar spine is partially diminished. Underlying scoliosis is present. IMPRESSION: Chronic changes without acute pulmonary process.
[2022-07-28 16:36] VITALS: BP 163/79; RESP 20
[2022-07-28 16:53] VITALS: PULSE 92
[2022-07-28 17:16] VITALS: TEMP 99.4
== END 2022-07-28 17:16 | disposition home or self-care (01) ==
LOC: EC 13:49
DX: J47.1 Bronchiectasis with (acute) exacerbation (principal); K21.9 Gastro-esophageal reflux disease without esophagitis; M79.7 Fibromyalgia; M19.90 Unspecified osteoarthritis, unspecified site; Z20.822 Contact with and (suspected) exposure to COVID-19; Z87.891 Personal history of nicotine dependence; Z79.899 Other long term (current) drug therapy; Z88.1 Allergy status to other antibiotic agents
CPT/HCPCS: 36415; 71046; 80053; 83605; 84484; 85025; 85379; 85610; 85730; 87636; 93005; 94640; 99285

== ENCOUNTER → 2023-11-16 | Outpatient (CLI) | payer MEDICARE ==
--- NOTE | 2023-11-17 11:44 | MR ---
EXAMINATION TYPE: MR lumbar spine wo/w con DATE OF EXAM: 11/16/2023 12:51 PM COMPARISON: NONE HISTORY: Lower back pain, BLE radiculopathy. Hx surgery. CONTRAST: The patient was injected with 7 mL intravenous Gadavist gadolinium contrast. Multiplanar, MultiSpin echo imaging of the lumbar spine was performed. Extensive changes of laminectomy and fusion extending from T12 through L5 S1. Extensive metallic susc eptibility artifact resulting in significant exam limitations. Postoperative alignment appears to be within normal limits. Near-anatomic. There is no evidence for malalignment. No definite recurrent pro cess is seen with certainty. No pathologic enhancement seen with certainty. IMPRESSION: 1. Limited examination with extensive postoperative change. Postoperative alignment appears to be wit hin normal limits. No obvious recurrent process seen at this time.
== END | disposition home or self-care (01) ==
LOC: RADMRIMAIN 11:15
PROVIDERS: ATTEND Psychiatry & Neurology Neurology
DX: G89.18 Other acute postprocedural pain (principal); M54.16 Radiculopathy, lumbar region
CPT/HCPCS: 72158; A9585

== ENCOUNTER 2024-04-22 20:53 | Emergency (ER) | payer MEDICARE ==
--- NOTE | 2024-04-22 21:17 | ED ---
Lower Extremity Injury HPI - General Source: patient, RN notes reviewed Mode of arrival: wheelchair Limitations: no limitations - History of Present Illness MD Complaint: knee injury Onset/Timin -: hour(s) Time: 19:30 Injury: Knee: Right Place: home Context: fall <CaitlinMichael brantley - Last Filed: 04/22/24 21:15> <Tamar Anthony - Last Filed: 04/27/24 23:55> - General Stated Complaint: ETOH, Fall Time Seen by Provider: 04/22/24 20:56 - History of Present Illness Initial Comments: Quick note: This is an 83-year-old female presenting via EMS for right knee pain (12/02) following a slip and fall at home at 1930 this evening. Patient endorses history of right knee weakness. Denies other injury, head injury, neck pain, headache. (Michael Tucker) 83-year-old female presenting with chief complaint of slip and fall at home. Patient was at home this evening when she lost her balance falling onto her right knee. She is having pain with weightbearing. She had to have EMS come help her get up off the ground. No other injuries. She denies any head injury, loss of consciousness, or use of blood thinners. No neck pain or headache. No numbness tingling or weakness. Patient states that she was drinking a small amount of wine tonight which she diluted with water and juice (Tamar Anthony) - Related Data Home Medications Medication Instructions Recorded Confirmed Ibuprofen [Motrin] 800 mg PO Q8H PRN 09/27/19 07/28/22 Diphenox-Atrop 2.5-0.025 mg 1 tab PO DAILY PRN 05/11/22 07/28/22 [Lomotil] Omeprazole 40 mg PO AC-BID 05/11/22 07/28/22 traZODone HCL 150 mg PO HS 05/11/22 07/28/22 Previous Rx's Medication Instructions Recorded Albuterol Sulfate [Albuterol 1 puff PO Q4-6H #8.5 gm 07/28/22 Sulfate Hfa] Azithromycin [Zithromax] 250 mg PO DIRECTED 5 Days #6 tab 07/28/22 Ipratropium [place] [Atrovent Hfa] 2 puff INHALATION QID PRN #12.9 gm 07/28/22 Promethazine/Dextromethorphan 5 ml PO Q4-6H PRN #473 ml 07/28/22 [Promethazine-Dm Syrup] predniSONE 50 mg PO DAILY 5 Days #5 tablet 07/28/22 Allergies Allergy/AdvReac Type Severity Reaction Status Date / Time No Known Allergies Allergy Verified 04/27/24 13:53 Review of Systems ROS Other: All systems not noted in ROS Statement are negative. <Michael Tucker - Last Filed: 04/22/24 21:15> ROS Other: All systems not noted in ROS Statement are negative. <Tamar Anthony - Last Filed: 04/27/24 23:55> ROS Statement: Those systems with pertinent positive or pertinent negative responses have been documented in the HPI. Past Medical History Past Medical History: Fibromyalgia, GERD/Reflux, Musculoskeletal Disorder, Osteoarthritis (OA), Pneumonia Additional Past Medical History / Comment(s): chronic back pain/difficulty lying flat., Hiatal hernia, chronic cough and bronchiectasis., states she gets pneumo albert alot, hx covid with hospitalization, injury to right foot and walks slowly., [place]- waiting for hearing aids., states difficulty swallowing-food gets stuck. History of Any Multi-Drug Resistant Organisms: None Reported Past Surgical History: Adenoidectomy, Appendectomy, Back Surgery, Bowel Resection, Breast Surgery, Hysterectomy, Tonsillectomy Additional Past Surgical History / Comment(s): Dilip in back, breast implants, cataract surgery, egd., bronchoscopy Past Anesthesia/Blood Transfusion Reactions: No Reported Reaction Additional Past Anesthesia/Blood Transfusion Reaction / Comment(s): can not lay flat due to dilip in back Smoking Status: Former smoker - Past Family History Mother Family Medical History: Cancer <Michael Tucker - Last Filed: 04/22/24 21:15> General Exam <Michael Tucker - Last Filed: 04/22/24 21:15> General appearance: alert, in no apparent distress Head exam: Present: atraumatic, normocephalic, normal inspection Eye exam: Present: normal appearance, EOMI Neck exam: Present: normal inspection, full ROM. Absent: meningismus Respiratory exam: Present: normal lung sounds bilaterally. Absent: respiratory distress, wheezes, rales, rhonchi, stridor Cardiovascular Exam: Present: regular rate, normal rhythm, normal heart sounds. Absent: systolic murmur, diastolic murmur, rubs, gallop, clicks Right Knee exam: Present: full ROM, tenderness, swelling Neurological exam: Present: alert, oriented X3 Psychiatric exam: Present: normal affect, normal mood Skin exam: Present: warm, dry, normal color <Tamar Anthony - Last Filed: 04/27/24 23:55> - General Exam Comments Initial Comments: Visual Physical Exam Vital signs reviewed General: Well-appearing, nontoxic, no acute distress. Patient seated in wheelchair with right lower extremity extended Head: Normocephalic, atraumatic Eyes: PERRLA, EOMI ENT: Airway patent Chest: Nonlabored breathing Skin: No visual rash, normal skin tone Neuro: Alert and oriented 3 Musculoskeletal: No gross abnormalities (Michael Tucker) Course Vital Signs 04/22/24 04/22/24 21:53 23:27 Temperature 97.5 F L Pulse Rate 83 84 Respiratory 18 16 Rate Blood Pressure 166/63 132/64 O2 Sat by Pulse 95 95 Oximetry Medical Decision Making <Michael Tucker - Last Filed: 04/22/24 21:15> <Tamar Anthony - Last Filed: 04/27/24 23:55> - Medical Decision Making I completed the quick note portion of this chart signed LORENE Cantu (Michael Tucker) Was pt. sent in by a medical professional or institution (CHATO White, METALLOGRAPHY TEACHER, urgent care, hospital, or retirement...) When possible be specific @ -No Did you speak to anyone other than the patient for history (EMS, parent, family, police, friend...)? What history was obtained from this source @ -No Did you review nursing and triage notes (agree or disagree)? Why? @ -I reviewed and agree with nursing and triage notes Were old charts reviewed (outside hosp., previous admission, EMS record, old EKG, old radiological studies, urgent care reports/EKG's, retirement records)? Report findings @ -No old charts were reviewed Differential Diagnosis (chest pain, altered mental status, abdominal pain women, abdominal pain men, vaginal bleeding, weakness, fever, dyspnea, syncope, headache, dizziness, GI bleed, back pain, seizure, CVA, palpatations, mental health, musculoskeletal)? @ -Differential Musculoskeletal Muscular strain, contusion, ligament sprain, fracture, arthritis, septic arthritis, bursitis, cellulitis, muscle spasm, nerve compression, DVT, arterial occlusion, herpes zoster, electrolyte abnormality, tumor.... This is not meant to be in all inclusive list EKG interpreted by me (3pts min.). @ -As above X-rays interpreted by me (1pt min.). @ -X-ray shows no acute osseous pathology. Moderate to severe tricompartmental osteoarthritic changes CT interpreted by me (1pt min.). @ -None done U/S interpreted by me (1pt. min.). @ -None done What testing was considered but not performed or refused? (CT, X-rays, U/S, labs)? Why? @ -None What meds were considered but not given or refused? Why? @ -None Did you discuss the management of the patient with other professionals (professionals i.e. , PA, METALLOGRAPHY TEACHER, lab, RT, psych nurse, health care social worker, camper assembler, teacher, security patrol officer, employment case manager)? Give summary @ -No Was smoking cessation discussed for >3mins.? @ -No Was critical care preformed (if so, how long)? @ -No Were there social determinants of health that impacted care today? How? (Homelessness, low income, unemployed, alcoholism, drug addiction, transportation, low edu. Level, literacy, decrease access to med. care, shelter, rehab)? @ -No Was there de-escalation of care discussed even if they declined (Discuss DNR or withdrawal of care, Hospice)? DNR status @ -No What co-morbidities impacted this encounter? (DM, HTN, Smoking, COPD, CAD, Cancer, CVA, ARF, Chemo, Hep., AIDS, mental health diagnosis, sleep apnea, morbid obesity)? @ -None Was patient admitted / discharged? Hospital course, mention meds given and route, prescriptions, significant lab abnormalities, going to OR and other pertinent info. @ -83-year-old female presenting with chief complaint of right knee pain after a fall this evening. Patient denies any head injury, loss of consciousness, or use of blood thinners. She is alert and oriented x 3 and shows no evidence of focal neurological deficits. X-ray is negative for any acute process. Patient is walking up and down the hallways with ease. She is educated on today's findings. Discharged. Follow-up with PCP. Report back to ER with any new or worsening symptoms. Discussed return parameters and answered all questions. Patient conveyed verbal understanding and agreed to the plan. I discussed this case in detail with my attending Dr. Borwn Undiagnosed new problem with uncertain prognosis? @ -No Drug Therapy requiring intensive monitoring for toxicity (Heparin, Nitro, Insulin, Cardizem)? @ -No Were any procedures done? @ -No Diagnosis/symptom? @ -Knee injury Acute, or Chronic, or Acute on Chronic? @ -Acute Uncomplicated (without systemic symptoms) or Complicated (systemic symptoms)? @ -Uncomplicated Side effects of treatment? @ -No Exacerbation, Progression, or Severe Exacerbation? @ -No Poses a threat to life or bodily function? How? (Chest pain, [place], [place], pneumonia, PE, COPD, DKA, ARF, appy, cholecystitis, CVA, Diverticulitis, Homicidal, Suicidal, threat to staff... and all critical care pts) @ -No (Tamar Anthony) Disposition <Michael Tucker - Last Filed: 04/22/24 21:15> Is patient prescribed a controlled substance at d/c from ED?: No Time of Disposition: 23:22 <Tamar Anthony - Last Filed: 04/27/24 23:55> Clinical Impression: Knee injury Disposition: HOME SELF-CARE Condition: Good Instructions (If sedation given, give patient instructions): Knee Pain (ED) Additional Instructions: Follow-up with PCP. Report back to ER with any new or worsening symptoms. Referrals: Cristobal Bolanos MD [Primary Care Provider] - 1-2 days
[2024-04-22 21:56] VITALS: TEMP 97.5
--- NOTE | 2024-04-22 21:58 | XR ---
EXAMINATION TYPE: XR knee complete RT DATE OF EXAM: 04/22/2024 9:43 PM COMPARISON: None CLINICAL INDICATION: Female, 83 years old with history of Fall, right knee pain; PHH, pain TECHNIQUE: XR knee complete RT 3 views submitted. FINDINGS: No evidence of any acute osseous pathology, soft tissue swelling, or joint effusion is no nuha. Tricompartmental osteophyte formation involving the femoral condyles, tibial plateau and patella . Mild joint space narrowing. A fabella is present. IMPRESSION: 1. No acute osseous pathology. 2. Moderate to severe tricompartmental osteoarthritic changes. [facility], , 04/22/2024 9:55 PM
[2024-04-22] MEDS: HYDROcodone/APAP 7.5-325MG 1 EACH TAB PO ONE (22:38)
[2024-04-22 23:38] VITALS: BP 132/64; PULSE 84; RESP 16
== END 2024-04-22 23:27 | disposition home or self-care (01) ==
LOC: SUPCPDRO 20:53 → EC 20:53
DX: S80.911A Unspecified superficial injury of right knee, initial encounter (principal); Z87.891 Personal history of nicotine dependence; F10.129 Alcohol abuse with intoxication, unspecified; W01.0XXA Fall on same level from slipping, tripping and stumbling without subsequent striking against object, initial encounter; Y92.019 Unspecified place in single-family (private) house as the place of occurrence of the external cause
CPT/HCPCS: 99283

== ENCOUNTER 2024-04-27 13:05 | Emergency (ER) | payer MEDICARE ==
--- NOTE | 2024-04-27 13:26 | ED ---
SOB HPI - General Source: patient, RN notes reviewed Mode of arrival: wheelchair Limitations: no limitations - History of Present Illness MD Complaint: shortness of breath, chest pain <Ina Baker - Last Filed: 04/27/24 13:24> - General Source: patient, RN notes reviewed, old records reviewed <Jose Ramirez - Last Filed: 04/27/24 22:30> - General Chief Complaint: Shortness of Breath Stated Complaint: SOB, cough Time Seen by Provider: 04/27/24 13:15 - History of Present Illness Initial Comments: Quick Note: This is an 83-year-old female who presents to the emergency department for shortness of breath. States that she is being treated for double pneumonia. She followed up with Dr. Saleh 4 days ago. She was started on different medications, but cannot recall what they were. Since then, states that she continues to get worse. She was told by his office to come to the emergency department for evaluation and she was also advised that she may need a CTA of the chest to look for signs of a blood clot. Denies any history of blood clots. Not taking any blood thinners. She does report associated chest pain. (Ina Baker) Patient is an 83-year-old female who was originally seen as a quick note. Presents emergency department complaining of shortness of breath, cough. Patient has a chronic cough but feels like it is worse than her baseline. Only on antibiotics, steroids and follows with Dr. Stone. Recently treated for double pneumonia and is concerned that this came back. Recommended to come here for possible CTA to evaluate for blood clot. States she has some pain when coughing but no other acute chest pain at this time. Denies any nausea vomiting or diarrhea. Denies any abdominal pain. I evaluated the patient after workup was complete and patient was placed in room. Patient has been present for numerous hours here in the department due to high patient volumes and patient's workup thus far being relatively unremarkable. (Jose Ramirez) - Related Data Home Medications Medication Instructions Recorded Confirmed Ibuprofen [Motrin] 800 mg PO Q8H PRN 09/27/19 07/28/22 Diphenox-Atrop 2.5-0.025 mg 1 tab PO DAILY PRN 05/11/22 07/28/22 [Lomotil] Omeprazole 40 mg PO AC-BID 05/11/22 07/28/22 traZODone HCL 150 mg PO HS 05/11/22 07/28/22 Previous Rx's Medication Instructions Recorded Albuterol Sulfate [Albuterol 1 puff PO Q4-6H #8.5 gm 07/28/22 Sulfate Hfa] Azithromycin [Zithromax] 250 mg PO DIRECTED 5 Days #6 tab 07/28/22 Ipratropium Mccloud [Atrovent Hfa] 2 puff INHALATION QID PRN #12.9 gm 07/28/22 Promethazine/Dextromethorphan 5 ml PO Q4-6H PRN #473 ml 07/28/22 [Promethazine-Dm Syrup] predniSONE 50 mg PO DAILY 5 Days #5 tablet 07/28/22 Allergies Allergy/AdvReac Type Severity Reaction Status Date / Time No Known Allergies Allergy Verified 04/27/24 13:53 Review of Systems ROS Other: All systems not noted in ROS Statement are negative. <Ina Baker - Last Filed: 04/27/24 13:24> ROS Other: All systems not noted in ROS Statement are negative. <Jose Ramirez - Last Filed: 04/27/24 22:30> ROS Statement: Those systems with pertinent positive or pertinent negative responses have been documented in the HPI. Review of Systems: CONST: Denies fever EYES: Denies blurry vision ENT: Denies nasal congestion C/V: Denies Chest pain RESP: Denies shortness of breath GI: Denies abdominal pain : Denies dysuria SKIN: Denies rash. MSK: Denies joint pain. NEURO: Denies headache (Jose Ramirez) Past Medical History Past Medical History: Fibromyalgia, GERD/Reflux, Musculoskeletal Disorder, Osteoarthritis (OA), Pneumonia Additional Past Medical History / Comment(s): chronic back pain/difficulty lying flat., Hiatal hernia, chronic cough and bronchiectasis., states she gets pneumonia alot, hx covid with hospitalization, injury to right foot and walks slowly., [place]- waiting for hearing aids., states difficulty swallowing-food gets stuck. History of Any Multi-Drug Resistant Organisms: None Reported Past Surgical History: Adenoidectomy, Appendectomy, Back Surgery, Bowel Resection, Breast Surgery, Hysterectomy, Tonsillectomy Additional Past Surgical History / Comment(s): Dilip in back, breast implants, cataract surgery, egd., bronchoscopy Past Anesthesia/Blood Transfusion Reactions: No Reported Reaction Additional Past Anesthesia/Blood Transfusion Reaction / Comment(s): can not lay flat due to dilip in back Past Psychological History: Anxiety, Depression Smoking Status: Former smoker Past Alcohol Use History: Daily, Heavy - Past Family History Mother Family Medical History: Cancer <Ina Baker - Last Filed: 04/27/24 13:24> General Exam <Ina Baker - Last Filed: 04/27/24 13:24> <Jose Ramirez - Last Filed: 04/27/24 22:30> - General Exam Comments Initial Comments: Visual Physical Exam Vital signs reviewed General: Well-appearing, nontoxic, no acute distress. Head: Normocephalic, atraumatic Eyes: PERRLA, EOMI ENT: Airway patent Chest: Nonlabored breathing Skin: No visual rash, normal skin tone Neuro: Alert and oriented 3 Musculoskeletal: No gross abnormalities (Ina Baker) General: Appears in no acute distress. HEAD: Normal with no signs of head trauma. EYES: PERRLA, EOMI, conjunctiva normal, no discharge. ENT: Hearing grossly intact, normal oropharynx. RESPIRATORY: Clear breath sounds bilaterally. No wheezes, rales, or rhonchi. No hypoxia. No increased work of breathing. C/V: Regular rate and rhythm. S1 and S2 auscultated, no edema, peripheral pulses 2+ and intact throughout ABD: Abd is soft, nontender, nondistended EXT: Normal range of motion, no obvious deformity SKIN: No rashes or lesions observed on exposed skin. NEURO: Alert and oriented x 4. Ambulates without issue. No focal sensory or strength deficits. (Jose Ramirez) Course Vital Signs 04/27/24 04/27/24 04/27/24 13:48 21:00 22:00 Temperature 98.2 F 97.8 F Pulse Rate 81 70 79 Respiratory 18 18 18 Rate Blood Pressure 158/94 194/88 182/73 O2 Sat by Pulse 95 97 96 Oximetry Medical Decision Making <Ina Baker - Last Filed: 04/27/24 13:24> - Lab Data Result diagrams: 04/27/24 13:25 04/27/24 13:25 - EKG Data -: EKG Interpreted by Me <Jose Ramirez - Last Filed: 04/27/24 22:30> - Medical Decision Making I performed the QuickNote portion of this chart. Signed Ina Baker PA-C. (Ina Baker) Was pt. sent in by a medical professional or institution ([facility], RAILWAY ENGINEER, urgent care, hospital, or [facility]...) When possible be specific @ -Sent by yarn sorter for further workup for URI symptoms and shortness of breath. Did you speak to anyone other than the patient for history (EMS, parent, family, police, friend...)? What history was obtained from this source @ -No Did you review nursing and triage notes (agree or disagree)? Why? @ -I reviewed and agree with nursing and triage notes Were old charts reviewed (outside hosp., previous admission, EMS record, old EKG, old radiological studies, urgent care reports/EKG's, [facility] records)? Report findings @ -Compared today's EKG with EKG from July 2022 with no significant acute change. Differential Diagnosis (chest pain, altered mental status, abdominal pain women, abdominal pain men, vaginal bleeding, weakness, fever, dyspnea, syncope, headache, dizziness, GI bleed, back pain, seizure, CVA, palpatations, mental health, musculoskeletal)? @ -Differential Dyspnea: Coronary syndrome, arrhythmia, tamponade, asthma, COPD, pulmonary embolism, pneumonia, pneumothorax, pulmonary effusion, anaphylaxis, diabetic ketoacidosis, flailed chest, pulmonary contusion, diaphragmatic rupture, anemia, neuromuscular, this is not meant to be an all-inclusive list. EKG interpreted by me (3pts min.). @ -As above X-rays interpreted by me (1pt min.). @ -X-ray reveals no obvious acute cardiopulmonary process. CT interpreted by me (1pt min.). @ -CTA of the chest reveals no evidence of pulmonary embolism. Mild pulmonary edema. U/S interpreted by me (1pt. min.). @ -None done What testing was considered but not performed or refused? (CT, X-rays, U/S, labs)? Why? @ -None What meds were considered but not given or refused? Why? @ -None Did you discuss the management of the patient with other professionals (professionals i.e. , PA, RAILWAY ENGINEER, lab, RT, psych nurse, social welfare administrator, business lawyer, teacher, chief credit officer, renal case manager)? Give summary @ -No Was smoking cessation discussed for >3mins.? @ -No Was critical care preformed (if so, how long)? @ -No Were there social determinants of health that impacted care today? How? (Homelessness, low income, unemployed, alcoholism, drug addiction, transportation, low edu. Level, literacy, decrease access to med. care, penitentiary, rehab)? @ -No Was there de-escalation of care discussed even if they declined (Discuss DNR or withdrawal of care, Hospice)? DNR status @ -No What co-morbidities impacted this encounter? (DM, HTN, Smoking, COPD, CAD, Cancer, CVA, ARF, Chemo, Hep., AIDS, mental health diagnosis, sleep apnea, morbid obesity)? @ -Chronic cough Was patient admitted / discharged? Hospital course, mention meds given and rout e, prescriptions, significant lab abnormalities, going to OR and other pertinent info. @ -Patient presents for dyspnea. Is been ongoing for multiple days. Is currently on steroids, antibiotics, inhalers. Sent here for further evaluation and possible CT of the chest. Patient originally seen as a quick note workup was completed as a quick note. This includes cardiopulmonary labs, chest x-ray, CTA of the chest. Vitals are within acceptable limits. Slight hypertension which resolved when I evaluate the patient in the room. She has no symptoms at this time. We discussed her workup with consisted of a normal EKG, slightly elevated D-dimer however age adjusted was within acceptable limits. Troponin undetectable. BNP normal for her age. Viral swabs negative. Chest x-ray unremarkable. CTA was obtained despite the D-dimer being age-adjusted appropriate and it revealed no evidence of PE. I discussed results with the patient. She would like to go home. Ambulatory pulse ox within normal limits. She was in agreement with the plan for close follow-up with her yarn sorter. Strict return precautions discussed. Relatively asymptomatic when I evaluate the patient. I instructed the patient to follow up with their PCP in the next 1-3 days. . I explained that the patient should return to the emergency department if they experience any worsening symptoms. Strict return precautions were discussed with the patient. The patient expressed understanding of these instructions. I answered all questions that the patient had. The patient was discharged home in fair condition with their prescriptions and follow up information. Undiagnosed new problem with uncertain prognosis? @ -No Drug Therapy requiring intensive monitoring for toxicity (Heparin, Nitro, Insulin, Cardizem)? @ -No Were any procedures done? @ -No Diagnosis/symptom? @ -Dyspnea, cough Acute, or Chronic, or Acute on Chronic? @ -Chronic Uncomplicated (without systemic symptoms) or Complicated (systemic symptoms)? @ -Complicated Side effects of treatment? @ -No Exacerbation, Progression, or Severe Exacerbation? @ -No Poses a threat to life or bodily function? How? (Chest pain, [place], [place], pneumonia, PE, COPD, DKA, ARF, appy, cholecystitis, CVA, Diverticulitis, Homicidal, Suicidal, threat to staff... and all critical care pts) @ -Unlikely at this time (Jose Ramirez) - Lab Data Lab Results 04/27/24 04/27/24 04/27/24 Range/Units 13:25 13:25 13:25 WBC 9.3 (3.8-10.6) k/uL RBC 4.03 (3.80-5.40) m/uL Hgb 12.4 (11.4-16.0) gm/dL Hct 38.0 (34.0-46.0) % MCV 94.4 (80.0-100.0) fL MCH 30.8 (25.0-35.0) pg MCHC 32.6 (31.0-37.0) g/dL RDW 13.8 (11.5-15.5) % Plt Count 278 (150-450) k/uL MPV 8.4 Neutrophils % 91 % Lymphocytes % 6 % Monocytes % 2 % Eosinophils % 0 % Basophils % 0 % Neutrophils # 8.5 H (1.3-7.7) k/uL Lymphocytes # 0.5 L (1.0-4.8) k/uL Monocytes # 0.2 (0-1.0) k/uL Eosinophils # 0.0 (0-0.7) k/uL Basophils # 0.0 (0-0.2) k/uL PT 10.7 (10.0-12.5) sec INR 1.0 (<1.2) APTT 22.8 (22.0-30.0) sec D-Dimer 0.74 H (<0.60) mg/L FEU Sodium 141 (137-145) mmol/L Potassium 4.5 (3.5-5.1) mmol/L Chloride 105 (98-107) mmol/L Carbon Dioxide 24 (22-30) mmol/L Anion Gap 12 mmol/L BUN 30 H (7-17) mg/dL Creatinine 0.87 (0.52-1.04) mg/dL Est GFR (CKD-EPI)AfAm 72 (>60 ml/min/1.73 sqM) Est GFR (CKD-EPI)NonAf 63 (>60 ml/min/1.73 sqM) Glucose 116 H (74-99) mg/dL Plasma Lactic Acid Nestor (0.7-2.0) mmol/L Calcium 10.2 (8.4-10.2) mg/dL Magnesium 2.2 (1.6-2.3) mg/dL Total Bilirubin 0.7 (0.2-1.3) mg/dL AST 23 (14-36) U/L ALT 20 (4-34) U/L Alkaline Phosphatase 85 (38-126) U/L Troponin I (0.000-0.034) ng/mL NT-Pro-B Natriuret Pep 249 pg/mL Total Protein 8.0 (6.3-8.2) g/dL Albumin 4.9 (3.5-5.0) g/dL Influenza Type A (PCR) (Not Detectd) Influenza Type B (PCR) (Not Detectd) RSV (PCR) (Not Detectd) SARS-CoV-2 (PCR) (Not Detectd) 04/27/24 04/27/24 04/27/24 Range/Units 13:25 13:25 13:25 WBC (3.8-10.6) k/uL RBC (3.80-5.40) m/uL Hgb (11.4-16.0) gm/dL Hct (34.0-46.0) % MCV (80.0-100.0) fL MCH (25.0-35.0) pg MCHC (31.0-37.0) g/dL RDW (11.5-15.5) % Plt Count (150-450) k/uL MPV Neutrophils % % Lymphocytes % % Monocytes % % Eosinophils % % Basophils % % Neutrophils # (1.3-7.7) k/uL Lymphocytes # (1.0-4.8) k/uL Monocytes # (0-1.0) k/uL Eosinophils # (0-0.7) k/uL Basophils # (0-0.2) k/uL PT (10.0-12.5) sec INR (<1.2) APTT (22.0-30.0) sec D-Dimer (<0.60) mg/L FEU Sodium (137-145) mmol/L Potassium (3.5-5.1) mmol/L Chloride (98-107) mmol/L Carbon Dioxide (22-30) mmol/L Anion Gap mmol/L BUN (7-17) mg/dL Creatinine (0.52-1.04) mg/dL Est GFR (CKD-EPI)AfAm (>60 ml/min/1.73 sqM) Est GFR (CKD-EPI)NonAf (>60 ml/min/1.73 sqM) Glucose (74-99) mg/dL Plasma Lactic Acid Nestor 1.7 (0.7-2.0) mmol/L Calcium (8.4-10.2) mg/dL Magnesium (1.6-2.3) mg/dL Total Bilirubin (0.2-1.3) mg/dL AST (14-36) U/L ALT (4-34) U/L Alkaline Phosphatase (38-126) U/L Troponin I <0.012 (0.000-0.034) ng/mL NT-Pro-B Natriuret Pep pg/mL Total Protein (6.3-8.2) g/dL Albumin (3.5-5.0) g/dL Influenza Type A (PCR) Not Detected (Not Detectd) Influenza Type B (PCR) Not Detected (Not Detectd) RSV (PCR) Not Detected (Not Detectd) SARS-CoV-2 (PCR) Not Detected (Not Detectd) - EKG Data EKG Comments: 12-lead Electrocardiogram Interpretation Note EKG was reviewed and interpreted by myself. 12-lead ECG performed at 1401 is interpreted by me as revealing normal sinus rhythm at a rate of 69 beats per minute. [place] is normal. OR interval is 166 ms, QRS durations 95 ms, QTc is 411 ms.. There were no ST or T wave abnormalities to suggest myocardial ischemia or injury. R wave progression across the precordium was satisfactory. By my interpretation this EKG is non-diagnostic for acute ischemia. (Jose Ramirez) Disposition <Ina Baker - Last Filed: 04/27/24 13:24> Is patient prescribed a controlled substance at d/c from ED?: No Time of Disposition: 21:54 <Jose Ramirez - Last Filed: 04/27/24 22:30> Clinical Impression: Dyspnea Disposition: HOME SELF-CARE Condition: Fair Instructions (If sedation given, give patient instructions): Chronic Cough (ED) Additional Instructions: Follow-up with Dr. Saleh, your yarn sorter in the next 1 to 3 days. Return if worsening symptoms. Referrals: Cristobal Bolanos MD [Primary Care Provider] - 1-2 days
[2024-04-27 13:53] VITALS: RESP 18
[2024-04-27 14:22] LABS: Basophils % (A) 0 %; Eosinophils % (A) 0 %; HGB 12.4 gm/dL (11.4-16.0); Lymphocytes # (A) 0.5 k/uL (1.0-4.8); Lymphocytes % (A) 6 %; MCH 30.8 pg (25.0-35.0); MCHC 32.6 g/dL (31.0-37.0); MCV 94.4 fL (80.0-100.0); Mean Platelet Volume 8.4; Monocytes # (A) 0.2 k/uL (0-1.0); Monocytes % (A) 2 %; Neutrophils # (A) 8.5 k/uL (1.3-7.7); Neutrophils % (A) 91 %; Platelet Count 278 k/uL (150-450); RBC 4.03 m/uL (3.80-5.40); RDW 13.8 % (11.5-15.5); WBC 9.3 k/uL (3.8-10.6)
--- NOTE | 2024-04-27 14:28 | XR ---
EXAMINATION TYPE: XR chest 2V DATE OF EXAM: 04/27/2024 2:19 PM COMPARISON: Chest radiographs from 04/09/2024 TECHNIQUE: XR chest 2V Frontal and lateral views of the chest. CLINICAL INDICATION:Female, 83 years old with history of difficulty breathing; FINDINGS: Lungs/Pleura: There is flattening of the diaphragm with increased lucency of the lungs. No evidence o f pneumothorax, pleural effusion or focal consolidation. Pulmonary vascularity: Unremarkable. Heart/mediastinum: Cardiomediastinal silhouette is unremarkable. Musculoskeletal: Multiple level degenerative disc disease changes seen throughout the spine. Postsurg ical changes from thoracolumbar spinal fusion. Left shoulder arthropathy. IMPRESSION: 1. No acute cardiopulmonary disease process. 2. COPD changes. [facility], , 04/27/2024 2:25 PM
[2024-04-27 14:36] LABS: Partial Thromboplastin Time 22.8 sec (22.0-30.0); Prothrombin Time 10.7 sec (10.0-12.5)
[2024-04-27 14:38] LABS: ALT 20 U/L (4-34); AST 23 U/L (14-36); African American GFR (CKD) 72 (>60 ml/min/1.73 sqM); Albumin 4.9 g/dL (3.5-5.0); Alkaline Phosphatase 85 U/L (38-126); Anion Gap 12 mmol/L; Blood Urea Nitrogen 30 mg/dL (7-17); Calcium 10.2 mg/dL (8.4-10.2); Carbon Dioxide 24 mmol/L (22-30); Chloride 105 mmol/L (98-107); Glucose 116 mg/dL (74-99); Magnesium 2.2 mg/dL (1.6-2.3); Non-African American GFR(CKD) 63 (>60 ml/min/1.73 sqM); Potassium 4.5 mmol/L (3.5-5.1); Sodium 141 mmol/L (137-145); Total Bilirubin 0.7 mg/dL (0.2-1.3)
[2024-04-27 14:46] LABS: NT-Pro-B-Type Natriuretic Pept 249 pg/mL
--- NOTE | 2024-04-27 18:43 | CT ---
EXAMINATION TYPE: CT chest angio for PE DATE OF EXAM: 04/27/2024 COMPARISON: Prior CT February 22, 2022 HISTORY: c/o of chest pain and shortness of breath x "a while" pt is unable to provide accurate time. Pt states she is just getting over double pneumonia. CT DLP: 639.4 mGycm. Automated Exposure Control for Dose Reduction was Utilized. CONTRAST: CTA scan of the thorax is performed with IV Contrast, patient injected with 100cc mL of Isovue 370, p ulmonary embolism protocol. MIP Images are created on CT scanner and reviewed. FINDINGS: LUNGS: Tiny hernia posterior right lung sagittal image 62 is redemonstrated. Mild posterior bibasilar linear scarring and atelectasis. Dependent opacity bilateral lower lobes could reflect mild edema an d/or atelectasis. Patchy groundglass opacities throughout the right upper lobe could reflect mild shira ma. No focal consolidation. MEDIASTINUM: There is satisfactory enhancement of the pulmonary artery and its branches, there is no CT evidence for pulmonary embolism. Some enhancement of the aorta without aneurysm or dissection. No cardiomegaly or pericardial effusion. OTHER: Subpectoral bilateral implants redemonstrated. Internal folding again seen suggesting intracap sular rupture inferiorly similar to prior. Gallbladder has distended margins. Surgical change of lumb ar spine is partially imaged. There is scoliosis of the thoracic spine redemonstrated. Small-sized hi atal hernia redemonstrated IMPRESSION: 1. No CT evidence for acute pulmonary embolism. 2. Mild alveolar edema suspected. Correlate for fluid overload state. No suspicious focal consolidati on. [facility], , 04/27/2024 6:40 PM
[2024-04-27] MEDS: IBUPROFEN 800 MG TAB PO STA (21:59)
[2024-04-27 22:20] VITALS: BP 182/73; PULSE 79; TEMP 97.8
== END 2024-04-27 22:05 | disposition home or self-care (01) ==
LOC: EC 13:05
DX: R06.02 Shortness of breath (principal); R05.3 Chronic cough; Z87.891 Personal history of nicotine dependence
CPT/HCPCS: 36415; 93005; 85379; 83880; 80053; 83605; 83735; 84484; 85025; 85610; 85730; 87636; 71046; 71275; 99285; Q9967

== ENCOUNTER 2024-05-10 10:58 | Day surgery (SDC) | payer MEDICARE ==
[~2024-05-10 10:58] MED LIST changes: -ACETAMINOPHEN TAB 500 MG TAB PO STA; -DEXAMETHASONE SOD PHOSPHATE 10 MG/ML 1 ML VIAL IV ONE; -GABAPENTIN 300 MG CAP PO STA; -GLYCOPYRROLATE 0.2 MG/ML 2 ML VIAL ONE; -HEPARIN SODIUM,PORCINE 5,000 UNIT/ML 1 ML VIAL SQ ONE; -HYDROcodone/APAP 5-325MG 1 EACH TAB PO ONE; -HYDROmorphone (PF) 1 MG/ML ONE; -KETOROLAC 30 MG/ML 1 ML VIAL IVP PRN; -LACTATED RINGERS 1,000 ML IV ONE; -LIDOCAINE 1% (10MG/ML) FOR IV START INTRADERMA ONE; -LIDOCAINE 1% INJ 10MG/ML (20 ML MDV) ONE; -LIDOCAINE 1%-EPI 1:100,000 20 ML VIAL SQ ONE; -MIDAZOLAM 2 MG/2 ML VIAL IV ONE; -MIDAZOLAM 2 MG/2 ML VIAL IV PRN; -NEOSTIGMINE 1 MG/ML 10 ML VIAL ONE; -ONDANSETRON 4 MG/2 ML VIAL IVP ONE; -PROPOFOL 10 MG/ML 20 ML VIAL IV ONE; -ROCURONIUM BROMIDE 10 MG/ML 5 ML VIAL IV ONE; -SCOPOLAMINE 1.5MG/72HR PATCH TRANSDERM ONE; -SIMETHICONE 80 MG CHEWABLE PO ONE; -SUCCINYLCHOLINE CHLORIDE 100 MG/5 ML SYR IV ONE; -TAMSULOSIN 0.4 MG CAP.ER.24H PO STA; -diphenhydrAMINE 50 MG/ML 1 ML VIAL IVP ONE; -ePHEDrine SULFATE/0.9% NACL/PF 50 MG/5 ML SYRINGE IV ONE; -fentaNYL (PF) 50 MCG/ML 2 ML AMP IV ONE; -fentaNYL (PF) 50 MCG/ML 2 ML AMP ONE
[2024-05-10] MEDS ORDERED: LIDOCAINE 1% (10MG/ML) FOR IV START INTRADERMA PRN (11:29)
[2024-05-10] MEDS ORDERED: LACTATED RINGERS 1,000 ML IV SCH (11:29)
[2024-05-10 11:45] VITALS: RESP 18; TEMP 98.3
[2024-05-10] MEDS: IV FLUID CONTINUATION 1,000 ML IV ONE (11:58)
[2024-05-10 12:10] LABS: Glucose,Whole Blood 94 mg/dL (70-110)
[2024-05-10] MEDS ORDERED: PROPOFOL 10 MG/ML 20 ML VIAL IV ONE (12:20)
[2024-05-10] MEDS ORDERED: LIDOCAINE 1% INJ 10MG/ML (20 ML MDV) ONE (12:20)
[2024-05-10] MEDS: LIDOCAINE 2% (PF) 20 MG/ML 2 ML VIAL INHALATION ONE (12:30)
[2024-05-10 13:31] VITALS: BP 128/70; PULSE 82
--- NOTE | 2024-05-10 19:46 | OP ---
OPERATIVE REPORT DATE OF SERVICE : PROCEDURE: PREOPERATIVE DIAGNOSES: Chronic cough and history of bronchiectasis. POSTOPERATIVE DIAGNOSES: Chronic cough and history of bronchiectasis. ANESTHESIA USED: IV conscious sedation. DESCRIPTION OF PROCEDURE: The patient was prepared according to the bronchoscopy protocol. O2 was applied via Ventimask, and a bite block was placed. We monitored the O2 saturation continuously. Blood pressure was intermittently monitored, and cardiac rhythm was continuously monitored. After adequate IV conscious sedation, bronchoscope was advanced through the bite block down to the area of the vocal cords, which were noted to be patent and no pathology noted over the vocal cords. Lidocaine applied over the vocal cords, and entered the airways/thorough examination was done of the trachea, james, right upper lobe, right middle lobe, right lower lobe, left upper lobe lingula and left lower lobe. Complete examination was performed and there was no evidence of any purulent secretions. No evidence of any endobronchial tumors, no evidence of foreign body, and no evidence of any significant abnormalities noted on the mucosa of the airways. Then, the bronchoscope was wedged in the right middle lobe and lavage was done, wedged in the lower segment of the right lower lobe, and lavage was done. The procedure was well tolerated, fluid obtained, sent for different diagnostic studies, no evidence of any complications, procedure was well tolerated. MMODL / IJN: [id number] /
[2024-05-11 05:28] LABS: Appearance,BF Clear (Clear); RBC, Body Fluid 5 /UL (0-2000)
[2024-05-11 16:36] LABS: Nucleated Cells, Body Fluid 294 /UL
== END 2024-05-10 13:32 | disposition home or self-care (01) ==
LOC: ORWHC2ENDO 10:58
PROVIDERS: ATTEND Internal Medicine
DX: R05.3 Chronic cough (principal); I25.10 Atherosclerotic heart disease of native coronary artery without angina pectoris; E78.5 Hyperlipidemia, unspecified; M19.90 Unspecified osteoarthritis, unspecified site; F41.9 Anxiety disorder, unspecified; M79.7 Fibromyalgia; F32.A Depression, unspecified; K21.9 Gastro-esophageal reflux disease without esophagitis; Z79.51 Long term (current) use of inhaled steroids; Z79.1 Long term (current) use of non-steroidal anti-inflammatories (NSAID); Z79.899 Other long term (current) drug therapy; Z87.09 Personal history of other diseases of the respiratory system
CPT/HCPCS: 89050; 87070; 87205; 87116; 87102; 87206; 31624; J2003 ×2; J2704

== ENCOUNTER 2024-06-14 08:12 | Day surgery (SDC) | payer MEDICARE ==
[2024-06-14 08:39] VITALS: TEMP 98.8
[2024-06-14] MEDS: diazePAM 5 MG TAB PO STA (08:46)
[2024-06-14 10:33] VITALS: RESP 12
[2024-06-14] MEDS: HYDROcodone/APAP 5-325MG 1 EACH TAB PO STA (10:52)
[2024-06-14 11:32] VITALS: BP 164/70; PULSE 70
--- NOTE | 2024-06-14 14:08 | FL ---
EXAMINATION TYPE: FL myelogram 2 or more regions DATE OF EXAM: 06/14/2024 COMPARISON: Correlation CT 01/04/2019 HISTORY: 83-year-old female previous back surgery with low back pain. M54.12, M62.81, T84.296, M54.6 , M54.50 Informed consent was obtained and all the patient's questions were answered. Review of the patient's prior exam shows extensive posterior and interbody fusion hardware. The right -sided vertical stabilization ashwini is fractured. The L3-L4, L4-L5, and S1 levels were all localized and multiple unsuccessful attempts were made to ac cess the CSF space. Standard sterile technique was utilized as well as appropriate local anesthesia 1% Lidocaine. The needle was removed, hemostasis obtained, and a dressing placed. IMPRESSION: Unsuccessful thoracolumbar myelography. Unable to obtain access with 3 different levels a ttempted. The patient's prior CT shows a bony roof having developed along most of the laminectomy sit es. If indicated, consider repeat attempt at a larger center with dedicated neuroradiologists. [facility], , 06/14/2024 2:05 PM
== END 2024-06-14 11:10 | disposition home or self-care (01) ==
LOC: RADPROMAIN 08:12
PROVIDERS: ATTEND Orthopaedic Surgery
DX: T84.216A Breakdown (mechanical) of internal fixation device of vertebrae, initial encounter (principal); M54.12 Radiculopathy, cervical region; M62.81 Muscle weakness (generalized); M54.6 Pain in thoracic spine
CPT/HCPCS: 62305; J2003; Q9967

== ENCOUNTER 2024-08-31 09:16 | Inpatient (IN) | payer MEDICARE ==
--- NOTE | 2024-08-31 09:51 | ED ---
General Adult HPI - General Chief complaint: Upper Respiratory Infection Stated complaint: KRAIG/Cough Time Seen by Provider: 08/31/24 09:27 Source: patient, RN notes reviewed Mode of arrival: wheelchair Limitations: no limitations - History of Present Illness Initial comments: 83 year old female presents to the ED for worsening SOB with associated rib pain and productive cough. She has a past medical hx significant for bronchiectasis and see's a mopper regularly. She says that her current symptoms do not feel like an exacerbation of this and are getting worse to the point that they wake her up at night. She also mentions that she has tinnitus in the right ear and pain with movements. She denies any fever or chills denies any prior cardiac disease. Patient denies any leg swelling. No history of CHF. - Related Data Home Medications Medication Instructions Recorded Confirmed Ibuprofen [Motrin] 800 mg PO DAILY PRN 09/27/19 06/14/24 Diphenox-Atrop 2.5-0.025 mg 1 tab PO DAILY PRN 05/11/22 06/14/24 [Lomotil] Omeprazole 40 mg PO AC-BID 05/11/22 06/14/24 traZODone HCL 50 - 75 mg PO HS PRN 05/11/22 06/14/24 Albuterol Sulfate [Albuterol 1 puff PO Q4-6H PRN 05/08/24 06/04/24 Sulfate Hfa] Atorvastatin [Lipitor] 10 mg PO HS 05/08/24 06/14/24 Budesonide/Formoterol Fumarate 2 puff INHALATION BID 05/08/24 06/14/24 [Budesonide-Formoterol 160-4.5] Pantoprazole [Protonix] 40 mg PO DAILY 05/08/24 06/14/24 diazePAM [Valium] 5 mg PO HS PRN 05/08/24 06/14/24 Allergies Allergy/AdvReac Type Severity Reaction Status Date / Time No Known Allergies Allergy Verified 08/31/24 09:22 Review of Systems ROS Statement: Those systems with pertinent positive or pertinent negative responses have been documented in the HPI. ROS Other: All systems not noted in ROS Statement are negative. Past Medical History Past Medical History: Fibromyalgia, GERD/Reflux, Musculoskeletal Disorder, Osteoarthritis (OA), Pneumonia Additional Past Medical History / Comment(s): chronic back pain/difficulty lying flat., Hiatal hernia, chronic cough and bronchiectasis., states she gets pneumonia alot, hx covid with hospitalization, injury to right foot and walks slowly., [place]- waiting for hearing aids., states difficulty swallowing-food gets stuck, unsteady gait, bilateral leg weakness, MS History of Any Multi-Drug Resistant Organisms: None Reported Past Surgical History: Adenoidectomy, Appendectomy, Back Surgery, Bowel Resection, Breast Surgery, Hysterectomy, Orthopedic Surgery, Tonsillectomy Additional Past Surgical History / Comment(s): Dilip in back, breast implants, cataract surgery, EGD, bronchoscopy, t-12 pelvic decompression and fusion Past Anesthesia/Blood Transfusion Reactions: No Reported Reaction Additional Past Anesthesia/Blood Transfusion Reaction / Comment(s): can not lay flat due to dilip in back Past Psychological History: Anxiety, Depression Smoking Status: Former smoker Past Alcohol Use History: Daily, Heavy Past Drug Use History: None Reported - Past Family History Mother Family Medical History: Cancer General Exam Limitations: no limitations General appearance: alert, in no apparent distress Head exam: Present: atraumatic, normocephalic, normal inspection Eye exam: Present: normal appearance, PERRL, EOMI. Absent: scleral icterus, conjunctival injection, periorbital swelling ENT exam: Present: normal exam, mucous membranes moist Neck exam: Present: normal inspection. Absent: tenderness, meningismus, lymphadenopathy Respiratory exam: Present: wheezes. Absent: normal lung sounds bilaterally, respiratory distress, rales, rhonchi, stridor Cardiovascular Exam: Present: regular rate, normal rhythm, normal heart sounds. Absent: systolic murmur, diastolic murmur, rubs, gallop, clicks GI/Abdominal exam: Present: soft, normal bowel sounds. Absent: distended, tenderness, guarding, rebound, rigid Course Vital Signs 08/31/24 08/31/24 09:20 10:18 Temperature 98.4 F Pulse Rate 89 87 Respiratory 22 24 Rate Blood Pressure 129/69 128/62 O2 Sat by Pulse 93 L 93 L Oximetry EKG Findings - EKG Comments: EKG Findings:: EKG performed at 10: 30 sinus rhythm rate of 84 [place] 141 QRS 94 QT/QTc 374/415 - EKG Results: EKG: interpreted by TALAT Medical Decision Making - Medical Decision Making Was pt. sent in by a medical professional or institution ([facility], [facility], urgent care, hospital, or fdc...) When possible be specific @ -No Did you speak to anyone other than the patient for history (EMS, parent, family, police, friend...)? What history was obtained from this source @ -No Did you review nursing and triage notes (agree or disagree)? Why? @ -I reviewed and agree with nursing and triage notes Were old charts reviewed (outside hosp., previous admission, EMS record, old EKG, old radiological studies, urgent care reports/EKG's, fdc records)? Report findings @ -No old charts were reviewed Differential Diagnosis (chest pain, altered mental status, abdominal pain women, abdominal pain men, vaginal bleeding, weakness, fever, dyspnea, syncope, headache, dizziness, GI bleed, back pain, seizure, CVA, palpatations, mental health, musculoskeletal)? @ -Differential Dyspnea: Coronary syndrome, arrhythmia, tamponade, asthma, COPD, pulmonary embolism, pneumonia, pneumothorax, pulmonary effusion, anaphylaxis, diabetic ketoacidosis, flailed chest, pulmonary contusion, diaphragmatic rupture, anemia, neuromuscular, this is not meant to be an all-inclusive list. EKG interpreted by me (3pts min.). @ -As above X-rays interpreted by me (1pt min.). @ -Chest ray shows chronic changes, cardiomegaly CT interpreted by me (1pt min.). @ -None done U/S interpreted by me (1pt. min.). @ -None done What testing was considered but not performed or refused? (CT, X-rays, U/S, labs)? Why? @ -None What meds were considered but not given or refused? Why? @ -None Did you discuss the management of the patient with other professionals (professionals i.e. [facility], [facility], lab, RT, psych nurse, social media marketing manager, clinical staff pharmacist, teacher, chief strategy officer, supportive employment case manager)? Give summary @ -[Dr. Valente for admission Was smoking cessation discussed for >3mins.? @ -No Was critical care preformed (if so, how long)? @ -35 Were there social determinants of health that impacted care today? How? (Homelessness, low income, unemployed, alcoholism, drug addiction, transporta tion, low edu. Level, literacy, decrease access to med. care, group home, rehab)? @ -No Was there de-escalation of care discussed even if they declined (Discuss DNR or withdrawal of care, Hospice)? DNR status @ -No What co-morbidities impacted this encounter? (DM, HTN, Smoking, COPD, CAD, Cancer, CVA, ARF, Chemo, Hep., AIDS, mental health diagnosis, sleep apnea, morbid obesity)? @ -None Was patient admitted / discharged? Hospital course, mention meds given and route, prescriptions, significant lab abnormalities, going to OR and other pertinent info. @ -Admit the patient presents for increasing cough congestion and mild dyspnea. Patient has chronic lung disease. Patient is found to have elevated troponin of 0.1 without significant cardiac history. Patient will be admitted for repeat cardiac enzymes, echocardiogram, cardiology evaluation. Undiagnosed new problem with uncertain prognosis? @ -No Drug Therapy requiring intensive monitoring for toxicity (Heparin, Nitro, Insulin, Cardizem)? @ -Heparin Were any procedures done? @ -No Diagnosis/symptom? @ -NSTEMI, chronic cough, dyspnea Acute, or Chronic, or Acute on Chronic? @ -Acute Uncomplicated (without systemic symptoms) or Complicated (systemic symptoms)? @ -Complicated Side effects of treatment? @ -No Exacerbation, Progression, or Severe Exacerbation? @ -No Poses a threat to life or bodily function? How? (Chest pain, USA, PR, pneumonia, PE, COPD, DKA, ARF, appy, cholecystitis, CVA, Diverticulitis, Homicidal, Suicidal, threat to staff... and all critical care pts) @ -Yes ACS risk cardiac function - Lab Data Result diagrams: 08/31/24 10:08/31/24 10:09 Lab Results 08/31/24 08/31/24 08/31/24 Range/Units 10: 10: 10: WBC 14.91 H (4.50-10.00) 10*3/uL RBC 4.19 (4.10-5.20) 10*6/uL Hgb 13.3 (12.0-15.0) g/dL Hct 38.8 (37.2-46.3) % MCV 92.6 (80.0-97.0) fL MCH 31.7 (27.0-32.0) pg MCHC 34.3 (32.0-37.0) g/dL Plt Count 303 (140-440) 10*3/uL MPV 11.4 (9.5-12.2) fL Immature Gran % (Auto) 0.5 % Neutrophils % 91.1 % Lymphocytes % 5.9 % Monocytes % 2.3 % Eosinophils % 0.1 % Basophils % 0.1 % Immature Gran # 0.08 H (0.00-0.04) 10*3/uL Neutrophils # 13.57 H (1.80-7.70) 10*3/uL Lymphocytes # 0.88 L (0.90-5.00) 10*3/uL Monocytes # 0.35 (0.20-1.00) 10*3/uL Eosinophils # 0.01 L (0.04-0.35) 10*3/uL Basophils # 0.02 (0.00-0.10) 10*3/uL Sodium 141 (137-145) mmol/L Potassium 4.1 (3.5-5.1) mmol/L Chloride 107 (98-107) mmol/L Carbon Dioxide 23 (22-30) mmol/L Anion Gap 11 mmol/L BUN 27 H (7-17) mg/dL Creatinine 0.81 (0.52-1.04) mg/dL Est GFR (CKD-EPI)AfAm 79 (>60 ml/min/1.73 sqM) Est GFR (CKD-EPI)NonAf 69 (>60 ml/min/1.73 sqM) Glucose 119 H (74-99) mg/dL Calcium 10.0 (8.4-10.2) mg/dL Magnesium 1.8 (1.6-2.3) mg/dL Total Bilirubin 1.2 (0.2-1.3) mg/dL AST 33 (14-36) U/L ALT 21 (4-34) U/L Alkaline Phosphatase 54 (38-126) U/L Troponin I 0.104 H* (0.000-0.034) ng/mL NT-Pro-B Natriuret Pep 5610 pg/mL Total Protein 7.4 (6.3-8.2) g/dL Albumin 4.4 (3.5-5.0) g/dL Disposition Clinical Impression: Non-ST elevation (NSTEMI) myocardial infarction Disposition: ADMITTED IP TO THIS HOSP Condition: Fair Referrals: Cristobal Bolanos MD [Primary Care Provider] - 1-2 days Time of Disposition: 12:20
[2024-08-31 10:49] LABS: Basophils # (A) 0.02 10*3/uL (0.00-0.10); Basophils % (A) 0.1 %; Eosinophils # (A) 0.01 10*3/uL (0.04-0.35); Eosinophils % (A) 0.1 %; HCT 38.8 % (37.2-46.3); HGB 13.3 g/dL (12.0-15.0); Lymphocytes # (A) 0.88 10*3/uL (0.90-5.00); Lymphocytes % (A) 5.9 %; MCH 31.7 pg (27.0-32.0); MCHC 34.3 g/dL (32.0-37.0); MCV 92.6 fL (80.0-97.0); Mean Platelet Volume 11.4 fL (9.5-12.2); Monocytes # (A) 0.35 10*3/uL (0.20-1.00); Monocytes % (A) 2.3 %; Neutrophils # (A) 13.57 10*3/uL (1.80-7.70); Neutrophils % (A) 91.1 %; Platelet Count 303 10*3/uL (140-440); RBC 4.19 10*6/uL (4.10-5.20); WBC 14.91 10*3/uL (4.50-10.00)
[2024-08-31 11:03] LABS: ALT 21 U/L (4-34); African American GFR (CKD) 79 (>60 ml/min/1.73 sqM); Albumin 4.4 g/dL (3.5-5.0); Anion Gap 11 mmol/L; Blood Urea Nitrogen 27 mg/dL (7-17); Carbon Dioxide 23 mmol/L (22-30); Chloride 107 mmol/L (98-107); Glucose 119 mg/dL (74-99); Non-African American GFR(CKD) 69 (>60 ml/min/1.73 sqM); Sodium 141 mmol/L (137-145); Total Bilirubin 1.2 mg/dL (0.2-1.3); Total Protein 7.4 g/dL (6.3-8.2)
[2024-08-31 11:09] LABS: NT-Pro-B-Type Natriuretic Pept 5610 pg/mL
[2024-08-31 11:12] LABS: AST 33 U/L (14-36); Alkaline Phosphatase 54 U/L (38-126); Magnesium 1.8 mg/dL (1.6-2.3); Potassium 4.1 mmol/L (3.5-5.1)
--- NOTE | 2024-08-31 11:52 | XR ---
EXAMINATION TYPE: XR chest 2V DATE OF EXAM: 08/31/2024 CLINICAL INDICATION: Female, 83 years old with history of difficulty breathing, TECHNIQUE: Frontal and lateral views of the chest are obtained. COMPARISON: Chest x-ray June 02, 2024 FINDINGS: There is some chronic parenchymal change bilaterally without suspicious focal air space op acity, pleural effusion, or pneumothorax seen. The cardiac silhouette size is mildly enlarged. Scoli osis is seen. Surgical change in the lumbar spine is partially imaged. Degenerative changes bilateral glenohumeral joints are present. IMPRESSION: Mild cardiomegaly and chronic changes without acute pulmonary process. [facility], , 08/31/2024 11:50 AM
[2024-08-31] MEDS ORDERED: HEPARIN SODIUM 1,000 UN/ML (10ML VL) IV PRN (12:21)
[2024-08-31] MEDS ORDERED: NITROGLYCERIN SL TABS 0.4 MG TAB SUBLINGUAL PRN (12:21)
[2024-08-31] MEDS: ASPIRIN 81 MG PO STA (13:00)
[2024-08-31] MEDS: HYDROmorphone 0.5 MG/0.5 ML SYRINGE IVP STA ×2 (13:00→20:20)
[2024-08-31] MEDS: HEPARIN SODIUM 1,000 UN/ML (10ML VL) IV ONE (13:10)
[2024-08-31] MEDS: HEPARIN SOD,PORK IN 0.45% NACL 25,000 UNIT in 0.45% NACL 1 250ML.BAG IV SCH (13:11)
[2024-08-31 13:15] LABS: Influenza A Not Detected (Not Detectd); Influenza B Not Detected (Not Detectd); RSV Not Detected (Not Detectd)
[2024-08-31] MEDS ORDERED: ALBUTEROL NEBULIZED 2.5 MG/3 ML INHALATION PRN (14:38)
[2024-08-31] MEDS ORDERED: ACETAMINOPHEN TAB 500 MG TAB PO PRN (14:43)
--- NOTE | 2024-08-31 14:46 | P.HPIM ---
History of Present Illness H&P Date: 08/31/24 Patient is a 83-year-old female with bronchiectasis presents to the ED for worsening shortness of breath. Patient reports that she has been having a productive cough over the past several weeks with a yellow-greenish sputum production. Patient did see Dr. Saleh recently and was put on doxycycline 100 mg twice daily and prednisone 10 mg daily. The cough has got worse since then. Patient also endorses a chest tightness sensation has been going on for the past several weeks. Patient also reported shortness of breath with exertion and while at rest over the past several weeks. Patient did report an episode of vomiting yesterday when she tried to take her medications. Patient also reporte d some left lower extremity tenderness in the calf. Denies fever, chills, belly pain, dysuria, lower extremity swelling, diarrhea, constipation, hematochezia or melena. ED documentation reviewed. In the ED patient was treated with aspirin 324 mg x 1, IV heparin. Vitals on admission temperature 98.4, pulse rate 87, respiratory rate 24, blood pressure 128/62, O2 sat 93% on room air EKG independently interpreted as sinus rhythm with ventricular rate of 84 bpm, QTc interval 415 ms, anterior myocardial infarction CXR shows chest x-ray shows mild cardiomegaly and chronic changes without acute pulmonary process. Labs on admission show WBC 14.1, hemoglobin 13.3, hematocrit 38.8, platelet 303, neutrophils 13.5, sodium 141, potassium 4.1, BUN 27, creatinine 0.81, glucose 119, troponin 0.104, BNP 5610 Review of systems: Pertinent positives and negatives as discussed in HPI, a complete review of systems was performed and all other systems are negative. PMH: Fibromyalgia, GERD, osteoarthritis, history of pneumonia PSH: Adenoidectomy, appendectomy, back surgery, bowel resection, breast surgery, hysterectomy, orthopedic surgery, tonsillectomy FMH: No pertinent family history Allergies: No known drug allergies Social history: Tobacco: Former smoker Alcohol: Daily heavy alcohol use Recreational drugs: None reported Travel: No travel history Sick contacts: No sick contact Physical examination: Vital signs reviewed General: nontoxic, no distress, appears at stated age Derm: warm, dry, intact Head: atraumatic, normocephalic, symmetric Eyes: EOMI, anicteric sclera Mouth: no lip lesion, mucus membranes moist Cardiovascular: S1 S2 reg, no murmur Lungs: CTA bilateral, no rhonchi, no rales, no accessory muscle use Abdominal: soft, non-tender to palpation Extremities: No cyanosis, clubbing, or pedal edema. Neuro: Alert, Oriented, Gross neurological examination did not reveal any focal deficits. Psych: well appearing, appropriate affect Assessment/Plan: Patient is a 83-year-old female with bronchiectasis, GERD, osteoarthritis being evaluated for worsening shortness of breath. Patient will be admitted to inpatient medicine service. Active: #. Acute NSTEMI #. Chest pain with atypical features Aspirin 325 mg in the ED Start aspirin 81 mg daily Continue IV heparin monitor APTT Nitroglycerin Sl tabs prn Troponin 0.104 Start Tylenol 500 mg every 6 hours prn Start metoprolol tartrate 12.5 mg bid BNP 5610 Continue cardiac monitoring Consult cardiology Heart healthy diet Order echocardiogram Order lipid panel am Obtain TSH Obtain Hemoglobin A1c Trend troponin q3hrs Supplemental oxygen as needed Start Lipitor 80 mg daily #. Chronic cough Chest x-ray showed cardiomegaly and chronic changes without acute pulmonary process Consider Tessalon Perles 100 mg 3 times daily as needed Chronic: #. GERD Restart omeprazole 20 mg daily #. Hyperlipidemia Start Lipitor 80 mg at bedtime F: No restrictions E: Replete as needed N: Heart healthy diet A: Wheelchair DVT prophylaxis: IV heparin The patient is admitted with an anticipated more than 2 midnight stay for evaluation of NSTEMI CODE STATUS: Full code Discussed with: Patient and family Anticipated discharge place: Home I have seen and evaluated the patient today. Discussed with the resident and agree with the residents finding and plan as documented in the resident's note. Changes highlighted in blue font. Past Medical History Past Medical History: Fibromyalgia, GERD/Reflux, Musculoskeletal Disorder, Osteoarthritis (OA), Pneumonia Additional Past Medical History / Comment(s): chronic back pain/difficulty lying flat., Hiatal hernia, chronic cough and bronchiectasis., states she gets pneumonia alot, hx covid with hospitalization, injury to right foot and walks slowly., [place]- waiting for hearing aids., states difficulty swallowing-food gets stuck, unsteady gait, bilateral leg weakness, MS History of Any Multi-Drug Resistant Organisms: None Reported Past Surgical History: Adenoidectomy, Appendectomy, Back Surgery, Bowel Resection, Breast Surgery, Hysterectomy, Orthopedic Surgery, Tonsillectomy Additional Past Surgical History / Comment(s): Dilip in back, breast implants, cataract surgery, EGD, bronchoscopy, t-12 pelvic decompression and fusion Past Anesthesia/Blood Transfusion Reactions: No Reported Reaction Additional Past Anesthesia/Blood Transfusion Reaction / Comment(s): can not lay flat due to dilip in back Past Psychological History: Anxiety, Depression Smoking Status: Former smoker Past Alcohol Use History: Daily, Heavy Past Drug Use History: None Reported - Past Family History Mother Family Medical History: Cancer Medications and Allergies Home Medications Medication Instructions Recorded Confirmed Type Ibuprofen [Motrin] 800 mg PO TID PRN 09/27/19 08/31/24 History Diphenox-Atrop 2.5-0.025 mg 1 tab PO TID PRN 05/11/22 08/31/24 History [Lomotil] Omeprazole 20 mg PO AC-BRKFST 05/11/22 08/31/24 History Albuterol Sulfate [Albuterol 2 puff INHALATION RT-Q4H PRN 05/08/24 08/31/24 History Sulfate Hfa] Atorvastatin [Lipitor] 10 mg PO HS 05/08/24 08/31/24 History Pantoprazole [Protonix] 40 mg PO DAILY 05/08/24 08/31/24 History diazePAM [Valium] 5 mg PO DAILY PRN 05/08/24 08/31/24 History Doxycycline Hyclate 100 mg PO BID 08/31/24 08/31/24 History Fluticasone/Umeclidin/Vilanter 1 puff INHALATION RT-DAILY 08/31/24 08/31/24 History [Trelegy Ellipta 100-62.5-25] HYDROcodone/APAP 5-325MG [[place] 1 tab PO Q8H PRN 08/31/24 08/31/24 History 5-325] predniSONE See Taper PO DIRECTED 08/31/24 08/31/24 History traZODone HCL 75 - 150 mg PO HS PRN 08/31/24 08/31/24 History Allergies Allergy/AdvReac Type Severity Reaction Status Date / Time No Known Allergies Allergy Verified 08/31/24 13:07 Physical Exam Vitals: Vital Signs Temp Pulse Resp BP Pulse Ox 08/31/24 10:18 87 24 128/62 93 L 08/31/24 09:20 98.4 F 89 22 129/69 93 L Intake and Output 08/30/24 08/31/24 08/31/24 22:59 06:59 14:59 Other: Weight 71.668 kg Results CBC & Chem 7: 08/31/24 10:09 08/31/24 10:09 Labs: Abnormal Lab Results - Last 24 Hours (Table) 08/31/24 08/31/24 08/31/24 Range/Units 10:09 10:09 10:09 WBC 14.91 H (4.50-10.00) 10*3/uL Immature Gran # 0.08 H (0.00-0.04) 10*3/uL Neutrophils # 13.57 H (1.80-7.70) 10*3/uL Lymphocytes # 0.88 L (0.90-5.00) 10*3/uL Eosinophils # 0.01 L (0.04-0.35) 10*3/uL BUN 27 H (7-17) mg/dL Glucose 119 H (74-99) mg/dL Troponin I 0.104 H* (0.000-0.034) ng/mL
[2024-08-31] MEDS: PANTOPRAZOLE 40 MG TABLET PO SCH (15:19)
[2024-08-31] MEDS: ATORVASTATIN 80 MG TAB PO SCH (15:19)
[2024-08-31] MEDS: BENZONATATE 100 MG CAP PO PRN (16:30)
[2024-08-31] MEDS: HYDROcodone/APAP 5-325MG 1 EACH TAB PO PRN (17:41)
[2024-08-31] MEDS: LIDOCAINE 4% PATCH TOPICAL SCH (17:45)
[2024-08-31] MEDS: METOPROLOL TARTRATE 12.5 MG TAB PO SCH (20:20)
[2024-08-31] MEDS: traZODone HCL 50 MG TAB PO PRN (20:20)
[2024-08-31] MEDS: SYMBICORT 160-4.5 MCG INHALER INHALATION SCH (20:35)
[2024-09-01] MEDS: HYDROmorphone 0.5 MG/0.5 ML SYRINGE IVP STA (05:44)
[2024-09-01 06:12] LABS: Mean Platelet Volume 10.9 fL (9.5-12.2); Platelet Count 223 10*3/uL (140-440)
[2024-09-01] MEDS ORDERED: NON FORMULARY DRUG (Fluticasone/Umeclidin/Vilanter [Trelegy Ellipta 100-62.5-25] 1 EACH Bl INHALATION SCH (08:00)
[2024-09-01] MEDS: ASPIRIN 81 MG PO SCH (08:46)
[2024-09-01] MEDS: predniSONE 10 MG TAB PO SCH (08:47)
[2024-09-01] MEDS ORDERED: ASPIRIN 325 MG TAB PO SCH (09:00)
[2024-09-01] MEDS: TIOTROPIUM 2.5 MCG INHALER INHALATION SCH (09:00)
[2024-09-01 10:47] LABS: Basophils # (A) 0.06 10*3/uL (0.00-0.10); Basophils % (A) 0.6 %; Eosinophils # (A) 0.11 10*3/uL (0.04-0.35); Eosinophils % (A) 1.1 %; HCT 35.8 % (37.2-46.3); HGB 11.7 g/dL (12.0-15.0); Lymphocytes % (A) 27.3 %; MCH 31.6 pg (27.0-32.0); MCHC 32.7 g/dL (32.0-37.0); MCV 96.8 fL (80.0-97.0); Mean Platelet Volume 11.2 fL (9.5-12.2); Monocytes # (A) 1.05 10*3/uL (0.20-1.00); Monocytes % (A) 10.6 %; Neutrophils % (A) 59.7 %; Platelet Count 241 10*3/uL (140-440); RDW 13.2 % (11.5-14.5); WBC 9.89 10*3/uL (4.50-10.00)
[2024-09-01 11:05] LABS: ALT 18 U/L (4-34); AST 24 U/L (14-36); African American GFR (CKD) >90 (>60 ml/min/1.73 sqM); Albumin 3.8 g/dL (3.5-5.0); Alkaline Phosphatase 44 U/L (38-126); Anion Gap 8 mmol/L; Blood Urea Nitrogen 24 mg/dL (7-17); Calcium 9.5 mg/dL (8.4-10.2); Carbon Dioxide 23 mmol/L (22-30); Chloride 106 mmol/L (98-107); Glucose 102 mg/dL (74-99); Non-African American GFR(CKD) 82 (>60 ml/min/1.73 sqM); Potassium 3.6 mmol/L (3.5-5.1); Sodium 137 mmol/L (137-145); Total Bilirubin 0.9 mg/dL (0.2-1.3); Total Protein 6.4 g/dL (6.3-8.2)
--- NOTE | 2024-09-01 11:19 | CA ---
Transthoracic Echo Report Name: Stella Garrett Age: 83 Gender: F : 1940 Exam Date: 08/31/2024 14:08 Exam Location: [facility] Ht (in): 63 Wt (lb): 158 Ordering Physician: Jude Mauricio Attending/Referring Phys: NIKHIL, [employer] Reny Alcantar RDCS Procedure CPT: Indications: Chest Pain Cardiac Hx: Technical Quality: Technically difficult study Contrast 1: Definity Total Dose (mL): 3 Contrast 2: Total Dose (mL): MEASUREMENTS (Male / Female) Normal Values 2D ECHO LV Diastolic Diameter PLAX 3.6 cm 4.2 - 5.9 / 3.9 - 5.3 cm LV Systolic Diameter PLAX 2.4 cm IVS Diastolic Thickness 1.5 cm 0.6 - 1.0 / 0.6 - 0.9 cm LVPW Diastolic Thickness 1.6 cm 0.6 - 1.0 / 0.6 - 0.9 cm LV Relative Wall Thickness 0.9 LVOT Diameter 2.1 cm Aortic Root Diameter 2.6 cm LV Diastolic Volume MOD BP 66.5 cm??? 67 - 155 / 56 - 104 cm??? LV Systolic Volume MOD BP 27.1 cm??? 22 - 58 / 19 - 49 cm??? LV Ejection Fraction MOD BP 59.2 % >= 55 % LV Cardiac Index MOD BP 1657.4 cm???/min???m??? LV Diastolic Volume MOD 4C 65.4 cm??? LV Systolic Volume MOD 4C 27.0 cm??? LV Ejection Fraction MOD 4C 58.7 % LV Cardiac Index MOD 4C 1617.4 cm???/min???m??? LV Diastolic Length 4C 7.2 cm LV Systolic Length 4C 6.1 cm LV Diastolic Volume MOD 2C 66.0 cm??? LV Systolic Volume MOD 2C 26.4 cm??? LV Ejection Fraction MOD 2C 60.1 % LV Cardiac Index MOD 2C 1670.4 cm???/min???m??? LV Diastolic Length 2C 7.5 cm LV Systolic Length 2C 5.9 cm DOPPLER AV Peak Velocity 135.8 cm/s AV Peak Gradient 7.4 mmHg AV Mean Velocity 89.1 cm/s AV Mean Gradient 3.7 mmHg AV Velocity Time Integral 24.2 cm LVOT Peak Velocity 101.5 cm/s LVOT Peak Gradient 4.1 mmHg LVOT Velocity Time Integral 22.9 cm LVOT Stroke Volume 78.8 cm??? LVOT Stroke Volume Index 45.0 ml/m??? LVOT Cardiac Index 3317.4 cm???/min???m??? AV Area Cont Eq vti 3.2 cm??? AV Area Cont Eq pk 2.6 cm??? Mitral E Point Velocity 50.7 cm/s Mitral A Point Velocity 80.5 cm/s Mitral E to A Ratio 0.6 MV Deceleration Time 161.7 ms MV E' Velocity 2.8 cm/s Mitral E to MV E' Ratio 18.1 TR Peak Velocity 229.5 cm/s TR Peak Gradient 21.1 mmHg Right Atrial Pressure 5.0 mmHg Pulmonary Artery Systolic Pressu 26.1 mmHg Right Ventricular Systolic Press 26.1 mmHg PV Peak Velocity 93.0 cm/s PV Peak Gradient 3.5 mmHg FINDINGS Left Ventricle Left ventricular ejection fraction is estimated at 55-60 %. Moderately LVH. Left ventricular cavity size normal. Right Ventricle Right ventricle not well visualized. Right ventricular systolic pressure within normal limits. Right Atrium Right atrium not well visualized. Left Atrium Normal left atrial size. Mitral Valve Structurally normal mitral valve. No mitral stenosis. No mitral regurgitation. Aortic Valve Trileaflet aortic valve. No aortic regurgitation. No aortic stenosis. Tricuspid Valve Tricuspid valve not well visualized. No tricuspid stenosis. Trace tricuspid regurgitation. Pulmonic Valve Structurally normal pulmonic valve. No pulmonic regurgitation. No pulmonic stenosis. Pericardium No pericardial effusion. Aorta Normal size aortic root and proximal ascending aorta. CONCLUSIONS Technically difficult study. LVEF 55% Moderate concentric LVH mid to distal anteroseptal wall hypokinesia no significant valvular dysfunction Previewed by: Dr Eric Hernández (Electronically Signed) Final Date: 01 Sep 2024 11:19
--- NOTE | 2024-09-01 11:21 | P.CRDCN ---
History of Present Illness Consult date: 09/01/24 History of present illness: HISTORY OF PRESENTING ILLNESS: 83-year-old female with past medical history of bronchiectasis presented to the hospital because of increased cough and yellow sputum production. She also endorses symptoms of substernal chest heaviness for last 1 to 2 weeks. Along with exertional shortness of breath. On admission to the ER her troponins were elevated at 0.1 for which cardiology was consulted for NSTEMI. Admission Vitals: 128/62, heart rate 87 bpm, room air saturating 93% Admission EKG: Sinus rhythm with heart rate 84 bpm, poor R wave progression Admission labs: Troponin elevated 0.104, 0.112, essentially flat pattern, NT- proBNP 5000, A1c 5.3, TSH 1.1 creatinine 0.6 Imaging: Chest x-ray does not show any signs of significant send with relation of congestion Echo from admission shows EF 55%, moderate concentric LVH, mid to distal anteroseptal wall hypokinesia, no significant valvular dysfunction REVIEW OF SYSTEMS: 14 point review of system is negative except what is mentioned above in HPI. PHYSICAL EXAMINATION: Neck: Brisk carotid upstroke, no jugular venous distention. Lungs: Clear to auscultation. Mild rhonchi audible Heart: Regular rate and rhythm, S1-S2, , no murmur or rub. Abdomen: Soft nontender, positive bowel sounds. Extremities: No edema, intact distal pulses. Neuro: Alert, oritented, no focal deficits. Detailed neuro exam was not performed. ASSESSMENT: # NSTEMI # Bronchiectasis # GERD # Chronic back pain with back surgery PLAN: Aspirin 81 mg, Lipitor, IV heparin drip for 48 hours Metoprolol 12.5 mg twice daily, Monitor hemodynamics and vitals Plan for cardiac cath Tuesday Eric Hernández MD, FACC, RPVI Thank you for allowing [facility] to participate in this patient's care. Feel free to reach out in case of any followup questions. Past Medical History Past Medical History: Fibromyalgia, GERD/Reflux, Musculoskeletal Disorder, Oste oarthritis (OA), Pneumonia Additional Past Medical History / Comment(s): chronic back pain/difficulty lying flat., Hiatal hernia, chronic cough and bronchiectasis., states she gets pneumonia alot, hx covid with hospitalization, injury to right foot and walks slowly., morongo- waiting for hearing aids., states difficulty swallowing-food gets stuck, unsteady gait, bilateral leg weakness, MS History of Any Multi-Drug Resistant Organisms: None Reported Past Surgical History: Adenoidectomy, Appendectomy, Back Surgery, Bowel Res ection, Breast Surgery, Hysterectomy, Orthopedic Surgery, Tonsillectomy Additional Past Surgical History / Comment(s): Dilip in back, breast implants, cataract surgery, EGD, bronchoscopy, t-12 pelvic decompression and fusion Past Anesthesia/Blood Transfusion Reactions: No Reported Reaction Additional Past Anesthesia/Blood Transfusion Reaction / Comment(s): can not lay flat due to dilip in back Past Psychological History: Anxiety, Depression Smoking Status: Former smoker Past Alcohol Use History: Daily, Heavy Additional Past Alcohol Use History / Comment(s): Quit smoking 1971 , smoked off and on for 11 years., Drinks 2 glasses of wine (mixes juice water and wine) Past Drug Use History: None Reported - Past Family History Mother Family Medical History: Cancer Medications and Allergies Home Medications Medication Instructions Recorded Confirmed Type Ibuprofen [Motrin] 800 mg PO TID PRN 09/27/19 08/31/24 History Diphenox-Atrop 2.5-0.025 mg 1 tab PO TID PRN 05/11/22 08/31/24 History [Lomotil] Omeprazole 20 mg PO AC-BRKFST 05/11/22 08/31/24 History Albuterol Sulfate [Albuterol 2 puff INHALATION RT-Q4H PRN 05/08/24 08/31/24 History Sulfate Hfa] Atorvastatin [Lipitor] 10 mg PO HS 05/08/24 08/31/24 History Pantoprazole [Protonix] 40 mg PO DAILY 05/08/24 08/31/24 History diazePAM [Valium] 5 mg PO DAILY PRN 05/08/24 08/31/24 History Doxycycline Hyclate 100 mg PO BID 08/31/24 08/31/24 History Fluticasone/Umeclidin/Vilanter 1 puff INHALATION RT-DAILY 08/31/24 08/31/24 History [Trelegy Ellipta 100-62.5-25] HYDROcodone/APAP 5-325MG [[place] 1 tab PO Q8H PRN 08/31/24 08/31/24 History 5-325] predniSONE See Taper PO DIRECTED 08/31/24 08/31/24 History traZODone HCL 75 - 150 mg PO HS PRN 08/31/24 08/31/24 History Allergies Allergy/AdvReac Type Severity Reaction Status Date / Time No Known Allergies Allergy Verified 08/31/24 13:07 Physical Exam Vitals: Vital Signs Temp Pulse Pulse Resp BP BP Pulse Ox 09/01/24 09:01 96 09/01/24 08:00 97.6 F 60 18 125/67 94 L 09/01/24 03:31 97.7 F 69 18 135/73 93 L 08/31/24 23:12 66 18 135/80 94 L 08/31/24 20:00 98.2 F 63 18 144/85 93 L 08/31/24 18:44 76 18 138/81 93 L 08/31/24 18:13 98.1 F 75 16 129/76 94 L 08/31/24 17:43 81 14 113/56 93 L 08/31/24 16:27 83 16 116/89 93 L 08/31/24 15:26 79 18 149/72 95 08/31/24 14:02 75 16 148/72 93 L 08/31/24 13:15 81 16 135/74 94 L FiO2 09/01/24 09:01 21 09/01/24 08:00 09/01/24 03:31 08/31/24 23:12 08/31/24 20:00 08/31/24 18:44 08/31/24 18:13 08/31/24 17:43 08/31/24 16:27 08/31/24 15:26 08/31/24 14:02 08/31/24 13:15 Intake and Output 08/31/24 09/01/24 09/01/24 22:59 06:59 14:59 Intake Total 61.203 107.197 360 Balance 61.203 107.197 360 Intake: Intake, IV Titration 61.203 107.197 Amount Heparin Sod,Pork in 0.45% 61.203 107.197 NaCl 25,000 unit In 0.45 % NaCl 1 250ml.bag @ 12 UNITS/KG/HR 8.6 mls/hr IV .Q24H [facility] Rx#:[id number] Oral 360 Other: Voiding Method Toilet # Voids 2 1 Weight 71.668 kg 71.3 kg Results 09/01/24 10:11 09/01/24 10:11 Cardiac Enzymes 08/31/24 08/31/24 08/31/24 Range/Units 10:09 13:16 19:25 AST (14-36) U/L Troponin I 0.104 H* 0.112 H* 0.102 H* (0.000-0.034) ng/mL 09/01/24 Range/Units 10:11 AST 24 (14-36) U/L Troponin I (0.000-0.034) ng/mL Coagulation 08/31/24 08/31/24 09/01/24 Range/Units 13:16 19:25 00:13 APTT 83.1 H 39.3 H 47.3 H (22.0-30.0) sec 09/01/24 Range/Units 05:48 APTT 80.2 H (22.0-30.0) sec CBC 09/01/24 09/01/24 Range/Units 05:48 10:11 WBC 9.89 (4.50-10.00) 10*3/uL RBC 3.70 L (4.10-5.20) 10*6/uL Hgb 11.7 L (12.0-15.0) g/dL Hct 35.8 L (37.2-46.3) % Plt Count 223 241 (140-440) 10*3/uL Comprehensive Metabolic Panel 09/01/24 Range/Units 10:11 Sodium 137 (137-145) mmol/L Potassium 3.6 (3.5-5.1) mmol/L Chloride 106 (98-107) mmol/L Carbon Dioxide 23 (22-30) mmol/L BUN 24 H (7-17) mg/dL Creatinine 0.69 (0.52-1.04) mg/dL Glucose 102 H (74-99) mg/dL Calcium 9.5 (8.4-10.2) mg/dL AST 24 (14-36) U/L ALT 18 (4-34) U/L Alkaline Phosphatase 44 (38-126) U/L Total Protein 6.4 (6.3-8.2) g/dL Albumin 3.8 (3.5-5.0) g/dL Current Medications Generic Name Dose Route Start Last Admin Trade Name Freq PRN Reason Stop Dose Admin Acetaminophen 500 mg 08/31/24 14:43 Acetaminophen Tab 500 Mg Tab PO Q6HR PRN Fever and/ or Pain 1-3 Hydrocodone Bitart/Acetaminophen 1 each 08/31/24 17:19 09/01/24 10:56 Hydrocodone/Apap 5-325mg 1 Each Tab PO 1 each Q6HR PRN Administration Pain 4-10 Albuterol Sulfate 2.5 mg 08/31/24 14:38 Albuterol Nebulized 2.5 Mg/3 Ml INHALATION RT-Q4H PRN Shortness Of Breath Aspirin 81 mg 09/01/24 09:00 09/01/24 08:46 Aspirin 81 Mg PO 81 mg DAILY [facility]A Administration Atorvastatin Calcium 80 mg 08/31/24 14:30 09/01/24 08:46 Atorvastatin 80 Mg Tab PO 80 mg DAILY [facility]A Administration Benzonatate 100 mg 08/31/24 14:44 08/31/24 20:20 Benzonatate 100 Mg Cap PO 100 mg TID PRN Administration Cough Budesonide/Formoterol Fumarate 2 puff 08/31/24 20:00 09/01/24 09:00 Symbicort 160-4.5 Mcg Inhaler INHALATION 2 puff RT-BID [facility] Administration Heparin Sodium (Porcine) 0 unit 08/31/24 12:21 Heparin Sodium 1,000 Un/Ml (10ml Vl) IV Q6HR PRN Low PTT Protocol Heparin Sodium/Sodium Chloride 250 mls @ 8.6 mls/hr 08/31/24 12:30 09/01/24 06:59 25,000 unit/ Sodium Chloride IV 12 units/kg/hr .Q24H [facility] 8.6 mls/hr Titration Protocol 12 UNITS/KG/HR Lidocaine 1 patch 08/31/24 17:30 09/01/24 08:47 Lidocaine 4% Patch TOPICAL 1 patch DAILY [facility] Administration Protocol Metoprolol Tartrate 12.5 mg 08/31/24 21:00 09/01/24 08:46 Metoprolol Tartrate 12.5 Mg Tab PO 12.5 mg BID [facility] Administration Nitroglycerin 0.4 mg 08/31/24 12:21 Nitroglycerin Sl Tabs 0.4 Mg Tab SUBLINGUAL Q5M PRN Chest Pain Pantoprazole Sodium 40 mg 08/31/24 14:30 05/10/25 08:46 Pantoprazole 40 Mg Tablet PO 40 mg AC-BRKFST [facility] Administration Prednisone 10 mg 09/01/24 09:00 09/01/24 08:47 Prednisone 10 Mg Tab PO 10 mg DAILY [facility] Administration Tiotropium [place] 2 puff 09/01/24 08:00 09/01/24 09:00 Tiotropium 2.5 Mcg Inhaler INHALATION 2 puff RT-DAILY [facility] Administration Trazodone HCl 75 - 150 mg 08/31/24 19:35 08/31/24 20:20 Trazodone Hcl 50 Mg Tab PO 150 mg HS PRN Administration SLEEP Intake and Output 08/31/24 09/01/24 09/01/24 22:59 06:59 14:59 Intake Total 61.203 107.197 360 Balance 61.203 107.197 360 Intake: Intake, IV Titration 61.203 107.197 Amount Heparin Sod,Pork in 0.45% 61.203 107.197 NaCl 25,000 unit In 0.45 % NaCl 1 250ml.bag @ 12 UNITS/KG/HR 8.6 mls/hr IV .Q24H [facility] Rx#:[id number] Oral 360 Other: Voiding Method Toilet # Voids 2 1 Weight 71.668 kg 71.3 kg 09/01/24 10:11 09/01/24 10:11
--- NOTE | 2024-09-01 12:16 | P.PN ---
Subjective Progress Note Date: 09/01/24 I have seen and evaluated the patient today. Discussed with the resident and agree with the residents finding and plan as documented in the resident's note. Changes highlighted in blue font. Hospital Course: Patient is a 83-year-old female with bronchiectasis presents to the ED for worsening shortness of breath. Patient reports that she has been having a productive cough over the past several weeks with a yellow-greenish sputum production. Patient did see Dr. Saleh recently and was put on doxycycline 100 mg twice daily and prednisone 10 mg daily. The cough has got worse since then. Patient also endorses a chest tightness sensation has been going on for the past several weeks. Patient also reported shortness of breath with exertion and while at rest over the past several weeks. Patient did report an episode of vomiting yesterday when she tried to take her medications. Patient also reported some left lower extremity tenderness in the calf. Denies fever, chills, belly pain, dysuria, lower extremity swelling, diarrhea, constipation, hematochezia or melena. ED documentation reviewed. In the ED patient was treated with aspirin 324 mg x 1, IV heparin. Subjective: Patient seen and examined at bedside. No acute events overnight. Reports feeling overall better compared to yesterday. Cough has improved. Denies fever, chills, chest pain, shortness of breath, nausea or vomiting, belly pain, diarrhea, constipation, lower extremity edema. Pertinent positives and negatives as discussed above, a complete review of systems was performed and all other systems are negative. Vitals: Signs Reviewed Physical Exam: General: nontoxic, no distress, appears at stated age Derm: warm, dry, intact Head: atraumatic, normocephalic, symmetric Eyes: EOMI, anicteric sclera Mouth: no lip lesion, mucus membranes moist Cardiovascular: S1 S2 reg, no murmur, rubs, or gallops Lungs: CTA bilateral, no rhonchi, no rales, no accessory muscle use Abdominal: soft, non-tender to palpataion, no appreciable organomegaly Extremities: no gross muscle atrophy, no edema, no contractures Neuro: Alert, Oriented, CNII-XII grossly intact, gait normal Psych: well appearing, appropriate affect Data Received Today: Pertinent Labs: Troponin 0.104, 0.112, 0.102, WBC 9.89, hemoglobin 11.7, hematocrit 35.8, platelet 241, sodium 137, potassium 3.6, chloride 106, carbon dioxide 23, BUN 24, creatinine 0.69, glucose 102 Imaging: Echocardiogram showed left ventricular ejection fraction of 55% and moderate concentric left ventricular hypertrophy Assessment and Plan: Patient is a 83-year-old female with bronchiectasis, GERD, osteoarthritis being evaluated for worsening shortness of breath. Patient will be admitted to inpatient medicine service. Active: #. Acute NSTEMI #. Chest pain with atypical features Continue with aspirin 81 mg daily Continue IV heparin for 48 hours monitor APTT Reviewed cardiology consult note, plan is for cardiac catheterization on Tuesday Continue Nitroglycerin Sl tabs prn Troponin 0.104, 0.112, 0.102 Continue Tylenol 500 mg every 6 hours prn Continue metoprolol tartrate 12.5 mg bid BNP 5610 Continue cardiac monitoring Heart healthy diet Echocardiogram showed left ventricular ejection fraction of 55% and moderate concentric left ventricular hypertrophy Order lipid panel am TSH 1.13 Hemoglobin A1c of 5.3 Continue supplemental oxygen as needed Continue Lipitor 80 mg daily Morning CBC and CMP #. Chronic cough Bronchiectasis Chest x-ray showed cardiomegaly and chronic changes without acute pulmonary process Continue Tessalon Perles 100 mg 3 times daily as needed continue home prednisone 10 mg daily, follows with pulmonology as outpatient Chronic: #. GERD Continue Protonix 40 mg #. Hyperlipidemia Continue Lipitor 80 mg at bedtime F: No restrictions E: Replete as needed N: Heart healthy diet A: Wheelchair DVT prophylaxis: IV heparin The patient is admitted with an anticipated more than 2 midnight stay for evaluation of NSTEMI CODE STATUS: Full code Discussed with: Patient and family Anticipated discharge place: Home Objective - Vital Signs Vital signs: Vital Signs Temp 97.7 F 09/01/24 03:31 Pulse 69 09/01/24 03:31 Resp 18 09/01/24 03:31 BP 135/73 09/01/24 03:31 Pulse Ox 93 L 09/01/24 03:31 FiO2 Intake & Output 08/31/24 09/01/24 09/01/24 18:59 06:59 18:59 Intake Total 168.400 Balance 168.400 Weight 71.668 kg 71.3 kg Intake: Intake, IV Titration 168.400 Amount Heparin Sod,Pork in 0.45% 168.400 NaCl 25,000 unit In 0.45 % NaCl 1 250ml.bag @ 12 UNITS/KG/HR 8.6 mls/hr IV .Q24H [facility] Rx#:[id number] Other: Voiding Method Toilet # Voids 2 - Labs CBC & Chem 7: 09/01/24 10:11 09/01/24 10:11 Labs: Abnormal Lab Results - Last 24 Hours (Table) 08/31/24 08/31/24 08/31/24 Range/Units 10: 10: 10:09 WBC 14.91 H (4.50-10.00) 10*3/uL Immature Gran # 0.08 H (0.00-0.04) 10*3/uL Neutrophils # 13.57 H (1.80-7.70) 10*3/uL Lymphocytes # 0.88 L (0.90-5.00) 10*3/uL Eosinophils # 0.01 L (0.04-0.35) 10*3/uL APTT (22.0-30.0) sec BUN 27 H (7-17) mg/dL Glucose 119 H (74-99) mg/dL Troponin I 0.104 H* (0.000-0.034) ng/mL 08/31/24 08/31/24 08/31/24 Range/Units 13:16 13:16 19:25 WBC (4.50-10.00) 10*3/uL Immature Gran # (0.00-0.04) 10*3/uL Neutrophils # (1.80-7.70) 10*3/uL Lymphocytes # (0.90-5.00) 10*3/uL Eosinophils # (0.04-0.35) 10*3/uL APTT 83.1 H (22.0-30.0) sec BUN (7-17) mg/dL Glucose (74-99) mg/dL Troponin I 0.112 H* 0.102 H* (0.000-0.034) ng/mL 08/31/24 09/01/24 09/01/24 Range/Units 19:25 00:13 05:48 WBC (4.50-10.00) 10*3/uL Immature Gran # (0.00-0.04) 10*3/uL Neutrophils # (1.80-7.70) 10*3/uL Lymphocytes # (0.90-5.00) 10*3/uL Eosinophils # (0.04-0.35) 10*3/uL APTT 39.3 H 47.3 H 80.2 H (22.0-30.0) sec BUN (7-17) mg/dL Glucose (74-99) mg/dL Troponin I (0.000-0.034) ng/mL
[2024-09-01 15:22] LABS: Chol/HDL Ratio 1.95 Ratio
[2024-09-01] MEDS: ALPRAZolam 0.25 MG TAB PO PRN (16:26)
[2024-09-01] MEDS: HYDROmorphone 0.5 MG/0.5 ML SYRINGE IVP PRN (21:14)
[2024-09-02 07:42] LABS: Basophils # (A) 0.03 10*3/uL (0.00-0.10); Basophils % (A) 0.3 %; Eosinophils # (A) 0.14 10*3/uL (0.04-0.35); Eosinophils % (A) 1.6 %; HCT 33.2 % (37.2-46.3); HGB 10.9 g/dL (12.0-15.0); Lymphocytes # (A) 2.74 10*3/uL (0.90-5.00); Lymphocytes % (A) 31.3 %; MCH 31.4 pg (27.0-32.0); MCHC 32.8 g/dL (32.0-37.0); MCV 95.7 fL (80.0-97.0); Mean Platelet Volume 11.3 fL (9.5-12.2); Monocytes # (A) 0.79 10*3/uL (0.20-1.00); Neutrophils % (A) 57.1 %; Platelet Count 214 10*3/uL (140-440); RBC 3.47 10*6/uL (4.10-5.20); RDW 13.3 % (11.5-14.5); WBC 8.76 10*3/uL (4.50-10.00)
[2024-09-02 08:03] LABS: ALT 17 U/L (4-34); AST 34 U/L (14-36); African American GFR (CKD) >90 (>60 ml/min/1.73 sqM); Albumin 3.6 g/dL (3.5-5.0); Alkaline Phosphatase 52 U/L (38-126); Anion Gap 6 mmol/L; Blood Urea Nitrogen 20 mg/dL (7-17); Calcium 8.9 mg/dL (8.4-10.2); Carbon Dioxide 25 mmol/L (22-30); Chloride 107 mmol/L (98-107); Glucose 97 mg/dL (74-99); Non-African American GFR(CKD) 82 (>60 ml/min/1.73 sqM); Potassium 3.5 mmol/L (3.5-5.1); Sodium 138 mmol/L (137-145); Total Bilirubin 0.7 mg/dL (0.2-1.3); Total Protein 6.2 g/dL (6.3-8.2)
--- NOTE | 2024-09-02 12:54 | P.PN ---
Subjective Progress Note Date: 09/02/24 Hospital Course: Patient is a 83-year-old female with bronchiectasis presents to the ED for wor sening shortness of breath. Patient reports that she has been having a productive cough over the past several weeks with a yellow-greenish sputum production. Patient did see Dr. Saleh recently and was put on doxycycline 100 mg twice daily and prednisone 10 mg daily. The cough has got worse since then. Patient also endorses a chest tightness sensation has been going on for the past several weeks. Patient also reported shortness of breath with exertion and while at rest over the past several weeks. Patient did report an episode of vomiting yesterday when she tried to take her medications. Patient also reported some left lower extremity tenderness in the calf. Denies fever, chills, belly pain, dysuria, lower extremity swelling, diarrhea, constipation, hematochezia or melena. ED documentation reviewed. In the ED patient was treated with aspirin 324 mg x 1, IV heparin. Subjective: Patient seen and examined at bedside. No acute events overnight. Cough is somewhat worse today, Tessalon Perles are helpful, she is anxious about the upcoming procedure, says Xanax helps a lot Pertinent positives and negatives as discussed above, a complete review of systems was performed and all other systems are negative. Vitals: Signs Reviewed Physical Exam: General: nontoxic, no distress, appears at stated age Derm: warm, dry, intact Head: atraumatic, normocephalic, symmetric Eyes: EOMI, anicteric sclera Mouth: no lip lesion, mucus membranes moist Cardiovascular: S1 S2 reg, no murmur, rubs, or gallops Lungs: CTA bilateral, no rhonchi, no rales, no accessory muscle use Abdominal: soft, non-tender to palpataion, no appreciable organomegaly Extremities: no gross muscle atrophy, no edema, no contractures Neuro: Alert, Oriented, CNII-XII grossly intact, gait normal Psych: well appearing, appropriate affect Data Received Today: Pertinent Labs: Normal WBC, hemoglobin 10.9, dropped from 11.7, normal platelet count, unremarkable BMP Imaging: Echocardiogram showed left ventricular ejection fraction of 55% and moderate concentric left ventricular hypertrophy Assessment and Plan: Patient is a 83-year-old female with bronchiectasis, GERD, osteoarthritis being evaluated for worsening shortness of breath. Patient will be admitted to inpatient medicine service. Active: #. Acute NSTEMI #. Chest pain with atypical features Continue with aspirin 81 mg daily Continue IV heparin for 48 hours monitor APTT Reviewed cardiology consult note, plan is for cardiac catheterization on Tuesday Continue Nitroglycerin Sl tabs prn Troponin 0.104, 0.112, 0.102 Continue Tylenol 500 mg every 6 hours prn Continue metoprolol tartrate 12.5 mg bid BNP 5610 Continue cardiac monitoring Heart healthy diet Echocardiogram showed left ventricular ejection fraction of 55% and moderate concentric left ventricular hypertrophy Order lipid panel am TSH 1.13 Hemoglobin A1c of 5.3 Continue supplemental oxygen as needed Continue Lipitor 80 mg daily Morning CBC and CMP Plan for heart cath on 09/03 in the morning, reviewed cardiology consultation note Acute anemia -Patient reports no blood in stool or urine, hemoglobin dropped from 13.3-10.9 from admission, monitor CBC daily #. Chronic cough Bronchiectasis Chest x-ray showed cardiomegaly and chronic changes without acute pulmonary process Continue Tessalon Perles 100 mg 3 times daily as needed continue home prednisone 10 mg daily, follows with pulmonology as outpatient Chronic: #. GERD Continue Protonix 40 mg #. Hyperlipidemia Continue Lipitor 80 mg at bedtime F: No restrictions E: Replete as needed N: Heart healthy diet A: Wheelchair DVT prophylaxis: IV heparin CODE STATUS: Full code Discussed with: Patient and family Objective - Vital Signs Vital signs: Vital Signs Temp 98.1 F 09/02/24 11:35 Pulse 68 09/02/24 11:35 Resp 20 09/02/24 11:35 BP 112/62 09/02/24 11:35 Pulse Ox 93 L 09/02/24 11:35 FiO2 21 09/02/24 09:10 Intake & Output 09/01/24 09/02/24 09/02/24 18:59 06:59 18:59 Intake Total 771.840 240 464.929 Balance 771.840 240 464.929 Weight 71.4 kg Intake: IV 110.35 Heparin Sod,Pork in 0.45% 110.35 NaCl 25,000 unit In 0.45 % NaCl 1 250ml.bag @ 12 UNITS/KG/HR 8.6 mls/hr IV .Q24H [facility] Rx#:[id number] Intake, IV Titration 61.490 224.929 Amount Heparin Sod,Pork in 0.45% 61.490 224.929 NaCl 25,000 unit In 0.45 % NaCl 1 250ml.bag @ 12 UNITS/KG/HR 8.6 mls/hr IV .Q24H [facility] Rx#:[id number] Oral 600 240 240 Other: Voiding Method Toilet # Voids 1 1 # Bowel Movements 1 - Labs CBC & Chem 7: 09/02/24 06:57 09/02/24 06:57 Labs: Abnormal Lab Results - Last 24 Hours (Table) 09/01/24 09/01/24 09/01/24 Range/Units 05:48 13:06 20:06 RBC (4.10-5.20) 10*6/uL Hgb (12.0-15.0) g/dL Hct (37.2-46.3) % Immature Gran # (0.00-0.04) 10*3/uL APTT 37.1 H 43.7 H (22.0-30.0) sec BUN (7-17) mg/dL Total Protein (6.3-8.2) g/dL HDL Cholesterol 81.20 H (40.00-60.00) mg/dL 09/02/24 09/02/24 09/02/24 Range/Units 06:57 06:57 06:57 RBC 3.47 L (4.10-5.20) 10*6/uL Hgb 10.9 L (12.0-15.0) g/dL Hct 33.2 L (37.2-46.3) % Immature Gran # 0.06 H (0.00-0.04) 10*3/uL APTT 49.8 H (22.0-30.0) sec BUN 20 H (7-17) mg/dL Total Protein 6.2 L (6.3-8.2) g/dL HDL Cholesterol (40.00-60.00) mg/dL
--- NOTE | 2024-09-02 16:07 | P.PN ---
Subjective Progress Note Date: 09/02/24 HISTORY OF PRESENTING ILLNESS: 83-year-old female with past medical history of bronchiectasis presented to the hospital because of increased cough and yellow sputum production. She also endorses symptoms of substernal chest heaviness for last 1 to 2 weeks. Along with exertional shortness of breath. On admission to the ER her troponins were elevated at 0.1 for which cardiology was consulted for NSTEMI. Admission Vitals: 128/62, heart rate 87 bpm, room air saturating 93% Admission EKG: Sinus rhythm with heart rate 84 bpm, poor R wave progression Admission labs: Troponin elevated 0.104, 0.112, essentially flat pattern, NT- proBNP 5000, A1c 5.3, TSH 1.1 creatinine 0.6 LDL 52, HDL 81, TG 124, A1c 5.3, TSH 1.1 Imaging: Chest x-ray does not show any signs of significant send with relation of congestion Echo from admission shows EF 55%, moderate concentric LVH, mid to distal anteroseptal wall hypokinesia, no significant valvular dysfunction Progress note 09/03/2023 Patient is seen and examined at bedside this a.m. He denies any chest pain chest pressure shortness of breath. Denies any lightheadedness or dizziness BP 112/62, heart rate 68, sinus rhythm at telemetry, PHYSICAL EXAMINATION: Neck: Brisk carotid upstroke, no jugular venous distention. Lungs: Clear to auscultation. Mild rhonchi audible Heart: Regular rate and rhythm, S1-S2, , no murmur or rub. Abdomen: Soft nontender, positive bowel sounds. Extremities: No edema, intact distal pulses. Neuro: Alert, oritented, no focal deficits. Detailed neuro exam was not performed. ASSESSMENT: # NSTEMI # Bronchiectasis # GERD # Chronic back pain with prior history of back surgery requiring a revision surgery in near future. PLAN: Aspirin 81 mg, Lipitor, IV heparin drip for 48 hours Metoprolol 12.5 mg twice daily, Monitor hemodynamics and vitals Plan for cardiac cath Tuesday with Dr. Melo Objective - Vital Signs Vital signs: Vital Signs Temp 98.1 F 09/02/24 11:35 Pulse 68 09/02/24 11:35 Resp 20 09/02/24 11:35 BP 112/62 09/02/24 11:35 Pulse Ox 93 L 09/02/24 11:35 FiO2 21 09/02/24 09:10 Intake & Output 09/01/24 09/02/24 09/02/24 18:59 06:59 18:59 Intake Total 771.840 240 704.929 Balance 771.840 240 704.929 Weight 71.4 kg Intake: IV 110.35 Heparin Sod,Pork in 0.45% 110.35 NaCl 25,000 unit In 0.45 % NaCl 1 250ml.bag @ 12 UNITS/KG/HR 8.6 mls/hr IV .Q24H [facility] Rx#:[id number] Intake, IV Titration 61.490 224.929 Amount Heparin Sod,Pork in 0.45% 61.490 224.929 NaCl 25,000 unit In 0.45 % NaCl 1 250ml.bag @ 12 UNITS/KG/HR 8.6 mls/hr IV .Q24H [facility] Rx#:[id number] Oral 600 240 480 Other: Voiding Method Toilet # Voids 1 1 # Bowel Movements 1 - Labs CBC & Chem 7: 09/02/24 06:57 09/02/24 06:57 Labs: Abnormal Lab Results - Last 24 Hours (Table) 09/01/24 09/02/24 09/02/24 Range/Units 20:06 06:57 06:57 RBC 3.47 L (4.10-5.20) 10*6/uL Hgb 10.9 L (12.0-15.0) g/dL Hct 33.2 L (37.2-46.3) % Immature Gran # 0.06 H (0.00-0.04) 10*3/uL APTT 43.7 H 49.8 H (22.0-30.0) sec BUN (7-17) mg/dL Total Protein (6.3-8.2) g/dL 09/02/24 Range/Units 06:57 RBC (4.10-5.20) 10*6/uL Hgb (12.0-15.0) g/dL Hct (37.2-46.3) % Immature Gran # (0.00-0.04) 10*3/uL APTT (22.0-30.0) sec BUN 20 H (7-17) mg/dL Total Protein 6.2 L (6.3-8.2) g/dL
[2024-09-03] MEDS: SODIUM CHLORIDE 0.9% 1,000 ML in EMPTY BAG 1 BAG IV SCH (05:26)
[2024-09-03 06:39] LABS: Basophils # (A) 0.04 10*3/uL (0.00-0.10); Basophils % (A) 0.4 %; Eosinophils # (A) 0.22 10*3/uL (0.04-0.35); Eosinophils % (A) 2.4 %; HCT 33.6 % (37.2-46.3); HGB 10.9 g/dL (12.0-15.0); Lymphocytes % (A) 29.4 %; MCH 31.8 pg (27.0-32.0); MCHC 32.4 g/dL (32.0-37.0); Mean Platelet Volume 11.5 fL (9.5-12.2); Monocytes # (A) 0.74 10*3/uL (0.20-1.00); Monocytes % (A) 8.1 %; Neutrophils # (A) 5.37 10*3/uL (1.80-7.70); Neutrophils % (A) 58.6 %; Platelet Count 183 10*3/uL (140-440); RBC 3.43 10*6/uL (4.10-5.20); RDW 13.2 % (11.5-14.5); WBC 9.17 10*3/uL (4.50-10.00)
[2024-09-03] MEDS: IV FLUID CONTINUATION 1,000 ML IV ONE (11:58)
[2024-09-03] MEDS: HEPARIN SODIUM,PORCINE 10,000 UNIT in SODIUM CHLORIDE 0.9% 1,000 ML IRRIGATION PRN (11:59)
[2024-09-03] MEDS: HEPARIN SODIUM,PORCINE (1 ML) 2,500 UNIT in SODIUM CHLORIDE 0.9% 250 ML IRRIGATION PRN (11:59)
--- NOTE | 2024-09-03 12:06 | P.PN ---
Subjective HISTORY OF PRESENT ILLNESS: 83-year-old female with past medical history of bronchiectasis presented to the hospital because of increased cough and yellow sputum production. She also endorses symptoms of substernal chest heaviness for last 1 to 2 weeks. Along with exertional shortness of breath. On admission to the ER her troponins were elevated at 0.1 for which cardiology was consulted for NSTEMI. Admission Vitals: 128/62, heart rate 87 bpm, room air saturating 93% Admission EKG: Sinus rhythm with heart rate 84 bpm, poor R wave progression Admission labs: Troponin elevated 0.104, 0.112, essentially flat pattern, NT- proBNP 5000, A1c 5.3, TSH 1.1 creatinine 0.6 LDL 52, HDL 81, TG 124, A1c 5.3, TSH 1.1 Imaging: Chest x-ray does not show any signs of significant send with relation of congestion Echo from admission shows EF 55%, moderate concentric LVH, mid to distal anteroseptal wall hypokinesia, no significant valvular dysfunction 09/03/2024 Patient examined this morning. Patient is sitting up in the chair. She denies any chest pain or pressure. She denies any shortness of breath. She remains on IV heparin. Vital signs are stable. PHYSICAL EXAM: VITAL SIGNS: Reviewed. GENERAL: Well-developed in no acute distress. NECK: Supple. No JVD or thyromegaly LUNGS: Respirations even and unlabored. Lungs essentially clear to auscultation bilaterally. HEART: Regular rate and rhythm. S1 and S2 heard. EXTREMITIES: Normal range of motion. No clubbing or cyanosis. Peripheral pulses intact. No lower extremity edema ASSESSMENT: Bronchiectasis Elevated troponins, flat, type I versus type II [place], cardiac catheterization p ending Chronic cough Anemia History of GERD Chronic back pain with previous back surgery PLAN: Continue aspirin, Lipitor, and metoprolol Continue IV heparin Patient scheduled to undergo cardiac catheterization today with Dr. Melo If cardiac catheterization is unremarkable, patient may be discharged home this evening Further recommendations pending patient course Nurse practitioner note has been reviewed by physician. Signing provider agrees with the documented findings, assessment, and plan of care documented by PIPE LINER as a scribe. Objective - Vital Signs Vital signs: Vital Signs Temp 98.0 F 09/03/24 11:24 Pulse 60 09/03/24 11:24 Resp 16 09/03/24 11:24 BP 145/61 05/12/25 11:24 Pulse Ox 94 L 09/03/24 11:24 FiO2 21 09/02/24 09:10 Intake & Output 09/02/24 09/03/24 09/03/24 18:59 06:59 18:59 Intake Total 825.289 10 Output Total 300 Balance 525.289 10 Weight 71.2 kg Intake: IV 120.36 10 Heparin Sod,Pork in 0.45% 120.36 NaCl 25,000 unit In 0.45 % NaCl 1 250ml.bag @ 12 UNITS/KG/HR 8.6 mls/hr IV .Q24H AVA Rx#:[id number] Invasive Line 1 10 Intake, IV Titration 224.929 Amount Heparin Sod,Pork in 0.45% 224.929 NaCl 25,000 unit In 0.45 % NaCl 1 250ml.bag @ 12 UNITS/KG/HR 8.6 mls/hr IV .Q24H AVA Rx#:[id number] Oral 480 Output: Urine 300 Other: Voiding Method Toilet Toilet # Voids 2 2 - Labs CBC & Chem 7: 09/03/24 06:29 09/02/24 06:57 Labs: Abnormal Lab Results - Last 24 Hours (Table) 09/03/24 09/03/24 Range/Units 06:29 06:29 RBC 3.43 L (4.10-5.20) 10*6/uL Hgb 10.9 L (12.0-15.0) g/dL Hct 33.6 L (37.2-46.3) % MCV 98.0 H (80.0-97.0) fL Immature Gran # 0.10 H (0.00-0.04) 10*3/uL APTT 40.6 H (22.0-30.0) sec
[2024-09-03] MEDS: ASPIRIN 81 MG PO ONE (12:08)
[2024-09-03] MEDS: fentaNYL (PF) 50 MCG/ML 2 ML AMP IVP ONE (12:25)
[2024-09-03] MEDS: LIDOCAINE 1% INJ 10MG/ML (20 ML MDV) SQ ONE (12:38)
[2024-09-03] MEDS: VERAPAMIL SYRINGE (5 MG/10 ML) INTRAARTER ONE (12:39)
[2024-09-03] MEDS: MIDAZOLAM 2 MG/2 ML VIAL IVP ONE (12:41)
[2024-09-03] MEDS: HEPARIN SODIUM 1,000 UN/ML (10ML VL) IV ONE (12:44)
[2024-09-03] MEDS: IOPAMIDOL-370 100ML BTL INJ ONE (12:50)
[2024-09-03] MEDS ORDERED: RX INFO: IV CONTRAST WAS GIVEN 1 EACH MISC MISCELLANE PRN (13:03)
--- NOTE | 2024-09-03 13:13 | P.CARDCATH ---
Date of Procedure: 09/03/24 Description of Procedure: Cardiac Catheterization: The patient is an 83-year-old female with known history of hyperlipidemia who presented with worsening cough and had mild troponin elevation. She was evaluated by Dr. Hernández. She has an upcoming back surgery. Recommendations were made regarding cardiac catheterization, the risks and the complications were discussed with the patient who is in full understanding and agreement. Procedure Description: Patient was brought to labor relations supervisor in fasting semi-sedated state after receiving Fentanyl and Benadryl achieiving moderate conscious sedated state. Using Xylocaine Anesthesia and modified Seldinger technique, a 6-[place] sheath was introduced in the right radial artery . Subsequently, selective coronary angiography was performed using a 5-[place] 3.5 bend Jacobo catheter. Multiple views of the coronary artery including hemiaxial views were obtained. The 5 [place] pigtail catheter was used to cross the aortic valve and LVEDP was calculated. Following that, catheter and sheath were removed. Hemostasis was obtained with deployment of vascular band . There was no immediate complication. Patient was returned to room in stable condition. Of note, the patient received a total of 3500 units of intravenous heparin as well as intra-arterial verapamil. Findings: Fluoroscopy: Severe calcification in the LAD, left main and left circumflex was noted Left main: This is a large size vessel, bifurcating into LAD and left circumflex, left main has no obstructive disease LAD: This is a large size vessel, tapers down in the distal third. It gives rise to 3 small to moderately sized diagonal branch. The LAD throughout its course has diffuse intimal disease of 20 to 30%. Left circumflex: This is a nondominant vessel giving rise to 2 obtuse marginal branch the first 1 is the large in caliber. The first obtuse marginal branch proximal segment has a 40 to 50% plaque. There is another 40 to 50% plaque in the midsegment of the obtuse marginal branch. The rest of the vessel has no high-grade stenosis. RCA: This is a large dominant vessel, bifurcating into PDA and PLV. The right PDA reaches to the inferoapical wall. The mid RCA has mild intimal disease of 20%, the rest of the vessel has no high-grade stenosis Left Ventriculogram: Not performed Hemodynamics: There was no gradient across the aortic valve, LVEDP was 16-20 mmHg Conclusion: 1. Calcified coronary arteries 2. Moderate disease in the first obtuse marginal branch 3. Mild disease in the LAD and RCA 4. Right dominance Recommendations: I have recommended to continue medical therapy, I see no evidence of significant obstructive disease. Will optimize her medical regimen. The findings and the recommendations were discussed with the patient and the family and they were in full understanding and agreement. Duration of sedation is 14 minutes.
[2024-09-03] MEDS: SODIUM CHLORIDE 0.9% 1,000 ML IV SCH (13:17)
--- NOTE | 2024-09-03 13:18 | P.PN ---
Subjective Progress Note Date: 09/03/24 Please ignore this note Objective - Vital Signs Vital signs: Vital Signs Temp 97.5 F L 09/03/24 04:35 Pulse 64 09/03/24 04:35 Resp 18 09/03/24 04:35 BP 139/73 09/03/24 04:35 Pulse Ox 96 09/03/24 04:35 FiO2 21 09/02/24 09:10 Intake & Output 09/02/24 09/03/24 09/03/24 18:59 06:59 18:59 Intake Total 825.289 Output Total 300 Balance 525.289 Weight 71.2 kg Intake: IV 120.36 Heparin Sod,Pork in 0.45% 120.36 NaCl 25,000 unit In 0.45 % NaCl 1 250ml.bag @ 12 UNITS/KG/HR 8.6 mls/hr IV .Q24H AVA Rx#:[id number] Intake, IV Titration 224.929 Amount Heparin Sod,Pork in 0.45% 224.929 NaCl 25,000 unit In 0.45 % NaCl 1 250ml.bag @ 12 UNITS/KG/HR 8.6 mls/hr IV .Q24H AVA Rx#:[id number] Oral 480 Output: Urine 300 Other: Voiding Method Toilet # Voids 2 - Labs CBC & Chem 7: 09/03/24 06:29 09/03/24 06:29 Labs: Abnormal Lab Results - Last 24 Hours (Table) 09/02/24 09/02/24 09/02/24 Range/Units 06:57 06:57 06:57 RBC 3.47 L (4.10-5.20) 10*6/uL Hgb 10.9 L (12.0-15.0) g/dL Hct 33.2 L (37.2-46.3) % MCV (80.0-97.0) fL Immature Gran # 0.06 H (0.00-0.04) 10*3/uL APTT 49.8 H (22.0-30.0) sec BUN 20 H (7-17) mg/dL Total Protein 6.2 L (6.3-8.2) g/dL 09/03/24 09/03/24 Range/Units 06:29 06:29 RBC 3.43 L (4.10-5.20) 10*6/uL Hgb 10.9 L (12.0-15.0) g/dL Hct 33.6 L (37.2-46.3) % MCV 98.0 H (80.0-97.0) fL Immature Gran # 0.10 H (0.00-0.04) 10*3/uL APTT 40.6 H (22.0-30.0) sec BUN (7-17) mg/dL Total Protein (6.3-8.2) g/dL
[2024-09-03 13:36] LABS: African American GFR (CKD) >90 (>60 ml/min/1.73 sqM); Anion Gap 8 mmol/L; Blood Urea Nitrogen 18 mg/dL (7-17); Calcium 9.4 mg/dL (8.4-10.2); Carbon Dioxide 22 mmol/L (22-30); Chloride 109 mmol/L (98-107); Glucose 93 mg/dL (74-99); Non-African American GFR(CKD) 82 (>60 ml/min/1.73 sqM); Potassium 3.6 mmol/L (3.5-5.1); Sodium 139 mmol/L (137-145)
--- NOTE | 2024-09-03 14:19 | P.DS ---
Providers Date of admission: 08/31/24 12:40 Expected date of discharge: 09/03/24 Attending physician: Lonnie Valente Consults: 08/31/24 12:21 Consult Physician Urgent Consulting Provider: Zhou Vasquez Consult Reason/Comments: NSTEMI Do you want consulting provider notified?: Yes Primary care physician: Cristobal Bolanos MD Hospital Course: Hospital course Patient is a 83-year-old female with bronchiectasis presents to the ED for worsening shortness of breath. Patient reports that she has been having a productive cough over the past several weeks with a yellow-greenish sputum production. Patient did see Dr. Saleh recently and was put on doxycycline 100 mg twice daily and prednisone 10 mg daily. The cough has got worse since then. Patient also endorses a chest tightness sensation has been going on for the past several weeks. Patient also reported shortness of breath with exertion and while at rest over the past several weeks. Patient did report an episode of vomiting yesterday when she tried to take her medications. Patient also reported some left lower extremity tenderness in the calf. Denies fever, chills, belly pain, dysuria, lower extremity swelling, diarrhea, constipation, hematochezia or melena. ED documentation reviewed. In the ED patient was treated with aspirin 324 mg x 1, IV heparin. Vitals on admission temperature 98.4, pulse rate 87, respiratory rate 24, blood pressure 128/62, O2 sat 93% on room air. EKG independently interpreted as sinus rhythm with ventricular rate of 84 bpm, QTc interval 415 ms, anterior myocardial infarction. CXR shows chest x-ray shows mild cardiomegaly and chronic changes without acute pulmonary process. Labs on admission show WBC 14.1, hemoglobin 13.3, hematocrit 38.8, platelet 303, neutrophils 13.5, sodium 141, potassium 4.1, BUN 27, creatinine 0.81, glucose 119, troponin 0.104, BNP 5610. Patient underwent an echocardiogram on 08/31/2024 which showed left ventricular ejection fraction of 55%, moderate concentric left ventricular hypertrophy, mid to distal anteroseptal wall hypokinesia, and no significant valvular dysfunction. Patient underwent a heart catheterization on 09/03/2024 which showed calcified coronary arteries, moderate disease in the first obtuse marginal branch, mild disease in the LAD and RCA and right dominance. Cardiology has recommended to continue medical therapy, no evidence of significant obstructive disease found on the cardiac catheterization. Will optimize her medical regimen. Metoprolol tartrate 12.5 mg twice daily, aspirin 81 mg daily and atorvastatin 80 mg daily has been added to patient's medications. Protonix 40 mg daily and atorvastatin 10 mg at bedtime have been discontinued. Patient is medically stable to be discharged on 09/03/2024. Patient will follow-up with PCP in 1 to 3 days after discharge and Dr. Melo in 1 week. Physical exam GENERAL: This is a 83-year-old in no apparent distress at the time of examination. Pleasant and cooperative. HEENT: Head is atraumatic, normocephalic. Pupils are equal, round, and reactive to light. Sclerae anicteric. Conjunctivae are clear. Mucus membranes of the mouth are moist. Neck is supple. RESPIRATORY: Clear to auscultation. No wheezes, rales, or rhonchi. No use of accessory muscles. Patient maintaining oxygen saturation greater than 92%. No chest wall tenderness is noted on palpation or with deep breathing. CARDIOVASCULAR: Regular rate and rhythm. S1 and S2 noted. No systolic or diastolic murmur auscultated. No JVD noted. No S3 or S4 noted. GASTROINTESTINAL: No distention noted. Abdomen soft and round. Normal active bowel sounds auscultated x 4 quadrants. No pain or tenderness noted upon palpation. INTEGUMENTARY: No cyanosis. No jaundice. No rashes noted. No cellulitis noted. EXTREMITIES: 2+ peripheral pulses. No evidence of peripheral edema. No calf tenderness noted. NEUROLOGIC: Cranial nerves II-XII intact. PSYCHIATRIC: Awake, alert, and oriented X 3. Appropriate affect. Intact judgement and insight. Discharge diagnosis Acute NSTEMI Dyslipidemia Bronchiectasis Chronic cough GERD Chronic back pain Normocytic anemia A total of 36 minutes of time were spent preparing this complex discharge summary. Patient was discharged on 09/03/2024 at 1408. I have seen and evaluated the patient today. Discussed with the resident and agree with the residents finding and plan as documented in the resident's note. Changes highlighted in blue font. Patient Condition at Discharge: Fair Plan - Discharge Summary Discharge Rx Participant: No New Discharge Prescriptions: New Metoprolol Tartrate [Lopressor] 12.5 mg PO BID 90 Days #180 tab Aspirin [Adult Low Dose Aspirin EC] 81 mg PO DAILY 90 Days #90 tab Atorvastatin [Lipitor] 80 mg PO DAILY 90 Days #90 tab Continue Ibuprofen [Motrin] 800 mg PO TID PRN PRN Reason: Pain Or Fever > 100.5 Diphenox-Atrop 2.5-0.025 mg [Lomotil] 1 tab PO TID PRN PRN Reason: Diarrhea Omeprazole 20 mg PO -[facility] Albuterol Sulfate [Albuterol Sulfate Hfa] 2 puff INHALATION RT-Q4H PRN PRN Reason: Shortness Of Breath HYDROcodone/APAP 5-325MG [[place] 5-325] 1 tab PO Q8H PRN PRN Reason: Pain traZODone HCL 75 - 150 mg PO HS PRN PRN Reason: SLEEP diazePAM [Valium] 5 mg PO DAILY PRN PRN Reason: Anxiety Doxycycline Hyclate 100 mg PO BID Fluticasone/Umeclidin/Vilanter [Trelegy Ellipta 100-62.5-25] 1 puff INHALATION RT-DAILY predniSONE See Taper PO DIRECTED Discontinued Pantoprazole [Protonix] 40 mg PO DAILY Atorvastatin [Lipitor] 10 mg PO HS Discharge Medication List Ibuprofen [Motrin] 800 mg PO TID PRN 09/27/19 [History] Diphenox-Atrop 2.5-0.025 mg [Lomotil] 1 tab PO TID PRN 05/11/22 [History] Omeprazole 20 mg PO -KFST 05/11/22 [History] Albuterol Sulfate [Albuterol Sulfate Hfa] 2 puff INHALATION RT-Q4H PRN 05/08/24 [History] diazePAM [Valium] 5 mg PO DAILY PRN 05/08/24 [History] Doxycycline Hyclate 100 mg PO BID 08/31/24 [History] Fluticasone/Umeclidin/Vilanter [Trelegy Ellipta 100-62.5-25] 1 puff INHALATION RT-DAILY 08/31/24 [History] HYDROcodone/APAP 5-325MG [[place] 5-325] 1 tab PO Q8H PRN 08/31/24 [History] predniSONE See Taper PO DIRECTED 08/31/24 [History] traZODone HCL 75 - 150 mg PO HS PRN 08/31/24 [History] Aspirin [Adult Low Dose Aspirin EC] 81 mg PO DAILY 90 Days #90 tab 09/03/24 [Rx] Atorvastatin [Lipitor] 80 mg PO DAILY 90 Days #90 tab 09/03/24 [Rx] Metoprolol Tartrate [Lopressor] 12.5 mg PO BID 90 Days #180 tab 09/03/24 [Rx] Follow up Appointment(s)/Referral(s): Jorge Melo MD [STAFF PHYSICIAN] - 1 Week Cristobal Bolanos MD [Primary Care Provider] - 1-2 days Patient Instructions/Handouts: Heart Attack (DC) Activity/Diet/Wound Care/Special Instructions: Please see PCP and cardiology. Discharge Disposition: HOME SELF-CARE
[2024-09-03 15:30] VITALS: RESP 18
--- NOTE | 2024-09-03 19:53 | CDI ---
Documentation Clarification Form Date: 09/03/2024 07:41:00 PM From: Jackie Smith Phone: [phone] Admit Date: 08/31/2024 12:40:00 PM Patient Name: Stella Garrett Visit Number: [id number] Discharge Date: ATTENTION: The Clinical Documentation Specialists (CDI) and [facility] Coding Staff appreciate your assistance in clarifying documentation. Please respond to the clarification below the line at the bottom and electronically sign. The CDI & [facility] Coding staff will review the response and follow-up if needed. Please note: Queries are made part of the Legal Health Record. If you have any questions, please contact the author of this message via ITS. Doctor. Lonnie Valente Acute NSSTEMI is documented in the H/P and subsequent progress notes which may lack sufficient clinical evidence/support in the medical record. Additional clarification is requested. History/Risk Factors: Fibromyalgia, GERD/Reflux, Musculoskeletal Disorder, Clinical Indicators: 83-year-old female with past medical history of bronchiectasis presented to the hospital because of cough, substernal chest heaviness with exertional shortness of breath. Admission labs: Troponin elevated 0.104, 0.112, proBNP 5000, A1c 5.3, TSH 1.1 creatinine 0.6 08/31 CXR: Mild cardiomegaly and chronic changes without acute pulmonary process 08/31 VS: 129/69 89 22 98.4, 93% RA EKG: Sinus rhythm with heart rate 84 bpm, poor R wave progression 08/31 Echo from admission shows EF 55%, moderate concentric LVH, mid to distal anteroseptal wall hypokinesia, no significant valvular dysfunction 09/01 Cardiology consult: # NSTEMI, 09/03 Cardiology progress note: Elevated troponins, flat, type I versus type II NV, cardiac catheterization Pending 09/03 Cardiac cath: Calcified coronary arteries. Moderate disease in the first obtuse marginal branch. Mild disease in the LAD and RCA I have recommended to continue medical therapy, I see no evidence of significant obstructive disease. Will optimize her medical regimen. Treatment: Cardiac / Telemetry Monitoring ASA 325 PO in ED> 81 MG PO Daily, IV Heparin monitor APTT -DC Lipitor 80 MG PO Daily, Lopressor 12.5 MG PO BID Please clarify if Acute NSTEMI is a valid diagnosis? [ ] No, Acute NSTEMI is ruled out [ x] Yes, Acute NSTEMI is present as evidence by (additional clinical support): __elevated trop with initial chest pain, and CAD on cath [ ] Acute NSTEM ruled out and patient had a Type II NV due to (specify [ ] Other (please specify diagnosis) [ ] Unable to determine (Template Last Revised: September 2023) MTDD
[2024-09-04] MEDS: PSYLLIUM HUSK 100% 6 GM PACKET PO SCH (00:31)
[2024-09-04] MEDS: SENNOSIDES-DOCUSATE SODIUM 1 EACH TAB PO SCH (00:31)
[2024-09-04 09:30] VITALS: BP 101/62; PULSE 88; TEMP 97.8
--- NOTE | 2024-09-04 12:24 | P.DS ---
Providers Date of admission: 08/31/24 12:40 Expected date of discharge: 09/04/24 Attending physician: Lonnie Valente Consults: 08/31/24 12:21 Consult Physician Urgent Consulting Provider: Zhou Vasquez Consult Reason/Comments: NSTEMI Do you want consulting provider notified?: Yes Primary care physician: Cristobal Bolanos MD Hospital Course: Discharge Diagnosis: Acute NSTEMI Dyslipidemia Bronchiectasis Chronic cough GERD Chronic back pain Normocytic anemia Hospital Course: Patient is a 83-year-old female with bronchiectasis presents to the ED for worsening shortness of breath. Patient reports that she has been having a productive cough over the past several weeks with a yellow-greenish sputum production. Patient did see Dr. Saleh recently and was put on doxycycline 100 mg twice daily and prednisone 10 mg daily. The cough has got worse since then. Patient also endorses a chest tightness sensation has been going on for the past several weeks. Patient also reported shortness of breath with exertion and while at rest over the past several weeks. Patient did report an episode of vomiting yesterday when she tried to take her medications. Patient also reported some left lower extremity tenderness in the calf. Denies fever, chills, belly pain, dysuria, lower extremity swelling, diarrhea, constipation, hematochezia or melena. ED documentation reviewed. In the ED patient was treated with aspirin 324 mg x 1, IV heparin. Vitals on admission temperature 98.4, pulse rate 87, respiratory rate 24, blood pressure 128/62, O2 sat 93% on room air. EKG independently interpreted as sinus rhythm with ventricular rate of 84 bpm, QTc interval 415 ms, anterior myocardial infarction. CXR shows chest x-ray shows mild cardiomegaly and chronic changes without acute pulmonary process. Labs on admission show WBC 14.1, hemoglobin 13.3, hematocrit 38.8, platelet 303, neutrophils 13.5, sodium 141, potassium 4.1, BUN 27, creatinine 0.81, glucose 119, troponin 0.104, BNP 5610. Patient underwent an echocardiogram on 08/31/2024 which showed left ventricular ejection fraction of 55%, moderate concentric left ventricular hypertrophy, mid to distal anteroseptal wall hypokinesia, and no significant valvular dysfunction. Patient underwent a heart catheterization on 09/03/2024 which showed calcified coronary arteries, moderate disease in the first obtuse marginal branch, mild disease in the LAD and RCA and right dominance. Cardiology has recommended to continue medical therapy, no evidence of significant obstructive disease found on the cardiac catheterization. Will optimize her medical regimen. Metoprolol tartrate 12.5 mg twice daily, aspirin 81 mg daily and atorvastatin 80 mg daily has been added to patient's medications. Protonix 40 mg daily and atorvastatin 10 mg at bedtime have been discontinued. Patient is medically stable to be discharged on 09/03/2024. Patient will follow-up with PCP in 1 to 3 days after discharge and Dr. Melo in 1 week. Patient seen and examined at bedside. Vital signs reviewed and stable. General: Nontoxic, no distress, appears at stated age Derm: Warm, dry Head: Atraumatic, normocephalic, symmetric Eyes: EOMI, no lid lag, anicteric sclera Mouth: No lip lesion, mucus membranes moist Cardiovascular: S1S2 reg, no murmur Lungs: CTA bilateral, no rhonchi, no rales, no accessory muscle use Abdominal: Soft, nontender to palpation, no guarding, no appreciable organomegaly Ext: No gross muscle atrophy, no edema, no contractures Neuro: CN II-XI grossly intact, no focal neuro deficits Psych: Alert, oriented, appropriate affect A total of 36 minutes of time were spent preparing this complex discharge summary. Patient was discharged on 09/04/2024 at 1017. Patient Condition at Discharge: Stable Plan - Discharge Summary Discharge Rx Participant: No New Discharge Prescriptions: New Metoprolol Tartrate [Lopressor] 12.5 mg PO BID 90 Days #180 tab Aspirin [Adult Low Dose Aspirin EC] 81 mg PO DAILY 90 Days #90 tab Benzonatate [Tessalon Perles] 100 mg PO TID PRN #30 capsule PRN Reason: Cough Atorvastatin [Lipitor] 80 mg PO DAILY 90 Days #90 tab Continue Ibuprofen [Motrin] 800 mg PO TID PRN PRN Reason: Pain Or Fever > 100.5 Diphenox-Atrop 2.5-0.025 mg [Lomotil] 1 tab PO TID PRN PRN Reason: Diarrhea Omeprazole 20 mg PO AC-BRKFST Albuterol Sulfate [Albuterol Sulfate Hfa] 2 puff INHALATION RT-Q4H PRN PRN Reason: Shortness Of Breath traZODone HCL 75 - 150 mg PO HS PRN PRN Reason: SLEEP HYDROcodone/APAP 5-325MG [[place] 5-325] 1 tab PO Q8H PRN #9 tab PRN Reason: Pain diazePAM [Valium] 5 mg PO DAILY PRN PRN Reason: Anxiety Fluticasone/Umeclidin/Vilanter [Trelegy Ellipta 100-62.5-25] 1 puff INHALATION RT-DAILY predniSONE See Taper PO DIRECTED Discontinued Pantoprazole [Protonix] 40 mg PO DAILY Atorvastatin [Lipitor] 10 mg PO HS Doxycycline Hyclate 100 mg PO BID Discharge Medication List Ibuprofen [Motrin] 800 mg PO TID PRN 09/27/19 [History] Diphenox-Atrop 2.5-0.025 mg [Lomotil] 1 tab PO TID PRN 05/11/22 [History] Omeprazole 20 mg PO AC-BRKFST 05/11/22 [History] Albuterol Sulfate [Albuterol Sulfate Hfa] 2 puff INHALATION RT-Q4H PRN 05/08/24 [History] diazePAM [Valium] 5 mg PO DAILY PRN 05/08/24 [History] Fluticasone/Umeclidin/Vilanter [Trelegy Ellipta 100-62.5-25] 1 puff INHALATION RT-DAILY 08/31/24 [History] predniSONE See Taper PO DIRECTED 08/31/24 [History] traZODone HCL 75 - 150 mg PO HS PRN 08/31/24 [History] Aspirin [Adult Low Dose Aspirin EC] 81 mg PO DAILY 90 Days #90 tab 09/03/24 [Rx] Atorvastatin [Lipitor] 80 mg PO DAILY 90 Days #90 tab 09/03/24 [Rx] Metoprolol Tartrate [Lopressor] 12.5 mg PO BID 90 Days #180 tab 09/03/24 [Rx] Benzonatate [Tessalon Perles] 100 mg PO TID PRN #30 capsule 09/04/24 [Rx] HYDROcodone/APAP 5-325MG [[place] 5-325] 1 tab PO Q8H PRN #9 tab 09/04/24 [Rx] Follow up Appointment(s)/Referral(s): Jorge Melo MD [STAFF PHYSICIAN] - 1 Week (please call and make appointment) Cristobal Bolanos MD [Primary Care Provider] - 1-2 days (please call and make appointment) Patient Instructions/Handouts: *Surgery [facility] - After Heart Catheterization - Event Marketing Assistant Instructions, Heart Attack (DC), Bronchiectasis (DC) Activity/Diet/Wound Care/Special Instructions: Please see PCP and cardiology. Discharge Disposition: HOME SELF-CARE
--- NOTE | 2024-09-04 12:44 | P.PN ---
Subjective HISTORY OF PRESENT ILLNESS: 83-year-old female with past medical history of bronchiectasis presented to the hospital because of increased cough and yellow sputum production. She also endorses symptoms of substernal chest heaviness for last 1 to 2 weeks. Along with exertional shortness of breath. On admission to the ER her troponins were elevated at 0.1 for which cardiology was consulted for NSTEMI. Admission Vitals: 128/62, heart rate 87 bpm, room air saturating 93% Admission EKG: Sinus rhythm with heart rate 84 bpm, poor R wave progression Admission labs: Troponin elevated 0.104, 0.112, essentially flat pattern, NT- proBNP 5000, A1c 5.3, TSH 1.1 creatinine 0.6 LDL 52, HDL 81, TG 124, A1c 5.3, TSH 1.1 Imaging: Chest x-ray does not show any signs of significant send with relation of congestion Echo from admission shows EF 55%, moderate concentric LVH, mid to distal anteroseptal wall hypokinesia, no significant valvular dysfunction 09/03/2024 Patient examined this morning. Patient is sitting up in the chair. She denies any chest pain or pressure. She denies any shortness of breath. She remains on IV heparin. Vital signs are stable. 09/04/2024 Patient is s/p cardiac catheterization yesterday with Dr. Melo revealing kyle cified coronary arteries, moderate disease in the first obtuse marginal branch, mild disease in the LAD and RCA. Medical management was recommended. Patient examined this morning at the bedside. She denies chest pain or pressure. Denies shortness of breath. Vital signs are stable. She is hoping to be discharged home today. Right radial cath site with no hematoma noted and pulse present. PHYSICAL EXAM: VITAL SIGNS: Reviewed. GENERAL: Well-developed in no acute distress. NECK: Supple. No JVD or thyromegaly LUNGS: Respirations even and unlabored. Lungs essentially clear to auscultation bilaterally. HEART: Regular rate and rhythm. S1 and S2 heard. EXTREMITIES: Normal range of motion. No clubbing or cyanosis. Peripheral pulses intact. No lower extremity edema ASSESSMENT: Bronchiectasis Elevated troponins, flat, type II VA, status post cardiac catheterization as above Mild to moderate nonobstructive CAD Chronic cough Anemia History of GERD Chronic back pain with previous back surgery PLAN: Continue aspirin, atorvastatin, and metoprolol Patient is stable for discharge home today from a cardiac standpoint Patient to follow-up postdischarge with Dr. Melo Nurse practitioner note has been reviewed by physician. Signing provider agrees with the documented findings, assessment, and plan of care documented by RA[employer]TER as a scribe. Objective - Vital Signs Vital signs: Vital Signs Temp 97.8 F 09/04/24 09:29 Pulse 88 09/04/24 09:29 Resp 18 09/04/24 09:29 BP 101/62 09/04/24 09:29 Pulse Ox 92 L 09/04/24 09:29 FiO2 21 09/02/24 09:10 Intake & Output 09/03/24 09/04/24 09/04/24 18:59 06:59 18:59 Intake Total 510 128 Balance 510 128 Weight 68.4 kg Intake: IV 160 10 Invasive Line 1 10 10 Oral 350 118 Other: Voiding Method Toilet Toilet Toilet # Voids 2 1 - Labs CBC & Chem 7: 09/03/24 06:29 09/03/24 06:29 Labs: Abnormal Lab Results - Last 24 Hours (Table) 09/03/24 Range/Units 06:29 Chloride 109 H (98-107) mmol/L BUN 18 H (7-17) mg/dL
== END 2024-09-04 12:19 | disposition home or self-care (01) | DRG 282 ==
LOC: EC 09:16 → 3SCARD 12:40
PROVIDERS: ADMIT Student in an Organized Health Care Education/Training Program; ATTEND Student in an Organized Health Care Education/Training Program
DX: I21.4 Non-ST elevation (NSTEMI) myocardial infarction (principal); D64.9 Anemia, unspecified; J47.9 Bronchiectasis, uncomplicated; E78.5 Hyperlipidemia, unspecified; I51.7 Cardiomegaly; K21.9 Gastro-esophageal reflux disease without esophagitis; I25.10 Atherosclerotic heart disease of native coronary artery without angina pectoris; G89.29 Other chronic pain; H93.11 Tinnitus, right ear; Z87.891 Personal history of nicotine dependence; Z79.899 Other long term (current) drug therapy; Z79.51 Long term (current) use of inhaled steroids
CPT/HCPCS: 36415; 71046; 80048; 80053; 80061; 83036; 83735; 83880; 84443; 84484; 85025; 85049; 85730; 87636; 93005; 93306; 93458; 94640; 94760; 96365; 96366; 96375; 99291